=== PATIENT | female | born 1970 | race Caucasian/White ===

== ENCOUNTER 2023-01-17 10:12 | Outpatient (OUT) | payer BC, SELFPAY ==
--- NOTE | 2023-01-17 10:25 | XR_ITS ---
The [address] [address] Patient Name: MARYANN CUETO MRN: [id number] date: 1970 Sex: F Assigned Patient Location: [facility] Current Patient Location: [facility] Accession/Order Number: [id number] Exam Date: 01/17/2023 10:25 Report Date: 01/19/2023 14:27 At the request of: SHAIKH CASEY Procedure: XR hip RT 2V w/ pelvis EXAM: XR hip RT 2V w/ pelvis HISTORY: Right Hip Pain M25.551 COMPARISON: None. TECHNIQUE: 3 view study FINDINGS: Overall bony architecture is normal. Hip joint spaces are satisfactorily maintained bilaterally. The symphysis pubis and sacroiliac joints are satisfactorily maintained. Soft tissues are unremarkable. XR/XR hip RT 2V w/ pelvis IMPRESSION: No evidence for acute fracture or dislocation. Electronically authenticated by: Michele NIETO Date: 01/19/2023 14:27
== END 2023-01-17 10:13 | disposition home or self-care (01) ==
LOC: RAD 10:16
PROVIDERS: PCP Internal Medicine; Visit Provider Internal Medicine
DX: M25.551 Pain in right hip (principal)
CPT/HCPCS: 73502

== ENCOUNTER 2023-05-09 09:45 | Outpatient (REF) | payer BC, SELFPAY ==
[2023-05-09 10:26] LABS: Influenza Virus A Antigen Negative; Influenza Virus B Antigen Negative; Internal Control Within Normal Limits; SARS-CoV-2 Ag NEGATIVE (NEGATIVE)
[2023-05-09 14:50] LABS: SARS-CoV-2 NAA NOT DETECTED (NOT DETECTE)
== END 2023-05-09 09:46 | disposition home or self-care (01) ==
LOC: LAB 09:45
PROVIDERS: PCP Internal Medicine; Visit Provider Internal Medicine
DX: Z11.8 Encounter for screening for other infectious and parasitic diseases (principal); Z20.822 Contact with and (suspected) exposure to COVID-19
CPT/HCPCS: 87635; 87804; 87811

== ENCOUNTER 2023-12-08 07:42 | Outpatient (OUT) | payer OTHER, BC, SELFPAY ==
--- OUTSIDE RECORDS SUMMARY | 2023-12-08 07:47 | XMS_ITS | CCD ---
Author Organization [facility] Care Team Providers Care [place] [employer] Name Role Phone SHAIKH Yoandy GONZALEZ Attending Unavailable SHAIKH Yoandy GONZALEZ Admitting Unavailable SHAIKH GONZALEZ Attending Shaikh Mccann MD Primary Care Provider Maryuri VINCENT Attending Unavailable Maryuri VINCENT Attending Unavailable Maryuri VINCENT Attending Unavailable Harsh Salvador Attending Unavailable Allergies Allergy Classification Reported Allergen(s) Allergy Type Date of Onset Reaction(s) Facility (1 source) Sulfamethoxazole / Trimethoprim Drug Allergy 07-12-19 [facility] (1 source) Amoxicillin-Pot Clavulanate Propensity to adverse reactions 07-12-19 [facility] (1 source) No Known Medication Allergies; Translations: [No Known Medication Allergies] Propensity to adverse reactions (disorder) [facility] Repository Medications Current Medications Medication Drug Class(es) Dates Sig (Normalized) Sig (Original) atorvastatin 20 mg oral tablet (1 source) HMG-CoA Reductase Inhibitor Start: 06-24-2023 End: 12-21-2023 take 1 tablet by mouth in the morning atorvastatin (Lipitor) 20 MG tablet Indications: Hyperlipidemia, unspecified hyperlipidemia type (CMS/HCC) Take 1 tablet (20 mg) by mouth in the morning. 90 tablet 1 06/24/2023 12/21/2023 Active carvedilol 25 mg oral tablet (1 source) alpha-Adrenergic Angelica, beta-Adrenergic Angelica take 1 tablet by mouth in the morning carvedilol (Coreg) 25 MG tablet Take 25 mg by mouth in the morning and 25 mg in the evening. Take with meals. 0 Active cetirizine hydrochloride 10 mg oral tablet (1 source) Histamine-1 Receptor Antagonist take 1 tablet by mouth in the morning cetirizine (ZyrTEC) 10 MG tablet Take 10 mg by mouth in the morning. 0 Active metFORMIN hydrochloride 500 mg oral tablet (1 source) Biguanide take 1 tablet by mouth every twelve hours metFORMIN (Glucophage) 500 MG tablet Take 500 mg by mouth every 12 (twelve) hours 0 Active montelukast 10 mg oral tablet (1 source) Leukotriene Receptor Antagonist take 1 tablet by mouth once daily montelukast (Singulair) 10 MG tablet Take 10 mg by mouth 1 (one) time each day 0 Active omeprazole 20 mg delayed release oral capsule (1 source) Proton Pump Inhibitor Start: 07-10-2023 End: 10-08-2023 take 1 capsule by mouth before mealtime omeprazole (PriLOSEC) [address] capsule Indications: Gastroesophageal reflux disease without esophagitis Take 1 capsule (20 mg) by mouth in the morning. Take before meals. Do not crush or chew.. 90 capsule 0 07/10/2023 10/08/2023 Active semaglutide 14 mg oral tablet (2 sources) Start: 04-10-2023 End: 02-10-2024 take 1 tablet by mouth in the morning semaglutide (Rybelsus) 14 MG tablet Indications: Type 2 diabetes mellitus without complication, without long-term current use of insulin ([facility]) Take 1 tablet (14 mg) by mouth in the morning. 90 tablet 1 08/14/2023 02/10/2024 Active Problems Problem Classification Problem Date Documented Date Episodic/Chronic Diabetes mellitus without complication (2 sources) Type 2 diabetes mellitus without complication; Translations: [Type 2 diabetes mellitus without complications] Onset: 06-24-2023 08-14-2023 Chronic Disorders of lipid metabolism (1 source) Hyperlipidemia; Translations: [Other hyperlipidemia] Onset: 07-20-2023 07-20-2023 Chronic Esophageal disorders (1 source) Gastroesophageal reflux disease; Translations: [Gastro-esophageal reflux disease without esophagitis] Onset: 07-20-2023 07-20-2023 Chronic Essential hypertension (2 sources) Essential hypertension; Translations: [Essential (primary) hypertension] Onset: 06-24-2023 06-24-2023 Chronic Other screening for suspected conditions (not mental disorders or infectious disease) (2 sources) Patient encounter status; Translations: [Encounter for screening mammogram for malignant neoplasm of breast] Onset: 07-20-2023 07-20-2023 Episodic Results Test Name Value Interpretation Reference Range Facility Quantiferon-TB Plus (Client Incubated)on 09-02-2023 Gamma interferon background IA Qn (Bld) 0.04 International_Unit/m L Invalid Interpretation Code [facility] Comment on above: Performed By: #### 1 [id number] #### [facility] [address] [place] [address] M. tuberculosis stim IFN-g by CD4+ CD8+ T-cells corrected for background Qn (Bld) 0.27 International_Unit/m L Invalid Interpretation Code [facility] Comment on above: Performed By: #### 1 [id number] #### [facility] [address] [place] [address] M. tuberculosis stim IFN-g by CD4+ T-cells corrected for background Qn (Bld) 0.26 International_Unit/m L Invalid Interpretation Code [facility] Comment on above: Performed By: #### 1 [id number] #### [facility] [address] [place] [address] M. tuberculosis stim IFN-g Ql (Bld) [Interp] Negative Invalid Interpretation Code Negative [facility] Comment on above: Result Comment: No r esponse to M tuberculosis antigens detected. Infection with M tuberculosis is unlikely, but high risk individuals should be considered for additional testing (ATS/IDSA/CDC Clinical Practice Guidelines, 2017). The reference range is an Antigen minus Nil result of <0.35 IU/mL. The specimen received for QuantiFERON testing was incubated by the ordering institution. Specific procedures outlined in our Directory of Services and in the package insert for the QuantiFERON Gold (In Tube) test must be followed to enable for proper stimulation of cells for the production of interferon gamma. Chemiluminescence immunoassay methodology Performed at: [facility] [id number] PhD Roz Malin Performed By: #### 1 [id number] #### [facility] [address] [place] [address] Mitogen stimulated gamma interferon corrected for background Qn (Bld) >10.00 Invalid Interpretation Code [facility] Comment on above: Performed By: #### 1 [id number] #### [facility] [address] [place] [address] Service comment (Unsp spec) [Interp] Comment Invalid Interpretation Code [facility] Comment on above: Result Comment: Daniel tiFERON-TB Gold Plus is a qualitative indirect test for M tuberculosis infection (including disease) and is intended for use in conjunction with risk assessment, radiography, and other medical and diagnostic evaluations. The QuantiFERON-TB Gold Plus result is determined by subtracting the Nil value from either TB antigen (Ag) value. The Mitogen tube serves as a control for the test. Performed By: #### 1 [id number] #### [facility] [address] [place] [address] Quantiferon-TB Plus (Client Incubated)on 08-29-2023 Gamma interferon background IA Qn (Bld) 0.09 International_Unit/m L Invalid Interpretation Code [facility] Comment on above: Performed By: #### 1 [id number] #### [facility] [address] [place] [address] M. tuberculosis stim IFN-g by CD4+ CD8+ T-cells corrected for background Qn (Bld) 0.47 International_Unit/m L Invalid Interpretation Code [facility] Comment on above: Performed By: #### 1 [id number] #### [facility] [address] [place] [address] M. tuberculosis stim IFN-g by CD4+ T-cells corrected for background Qn (Bld) 1.26 International_Unit/m L Invalid Interpretation Code [facility] Comment on above: Performed By: #### 1 [id number] #### [facility] [address] [place] [address] M. tuberculosis stim IFN-g Ql (Bld) [Interp] Positive Abnormal Negative [facility] Comment on above: Result Comment: A re sponse to M tuberculosis antigens has been detected. If patient is at low risk for Tuberculosis, the result should be interpreted with caution and repeat testing on a new specimen is recommended (ATS/IDSA/CDC Clinical Practice Guidelines, 2017). False positives can also occur due to infection by M kansasii, M szulgai, or M marinum. The specimen received for QuantiFERON testing was incubated by the ordering institution. Specific procedures outlined in our Directory of Services and in the package insert for the QuantiFERON Gold (In Tube) test must be followed to enable for proper stimulation of cells for the production of interferon gamma. Chemiluminescence immunoassay methodology Performed at: [facility] [id number] PhD Roz Malin Performed By: #### 1 [id number] #### [facility] [address] [place] [address] Mitogen stimulated gamma interferon corrected for background Qn (Bld) >10.00 Invalid Interpretation Code [facility] Comment on above: Performed By: #### 1 [id number], [id number] #### [facility] [address] [place] [address] Service comment (Unsp spec) [Interp] Comment Invalid Interpretation Code [facility] Comment on above: Result Comment: Daniel tiFERON-TB Gold Plus is a qualitative indirect test for M tuberculosis infection (including disease) and is intended for use in conjunction with risk assessment, radiography, and other medical and diagnostic evaluations. The QuantiFERON-TB Gold Plus result is determined by subtracting the Nil value from either TB antigen (Ag) value. The Mitogen tube serves as a control for the test. Performed By: #### 1 [id number], [id number] #### [facility] [address] [place] [address] Hep Bs Abon 08-26-2023 HBV surface Ab Ql (S) Reactive Invalid Interpretation Code [facility] Comment on above: Result Comment: Non Reactive: Inconsistent with immunity, less than 10 mIU/mL Reactive: Consistent with immunity, greater than 9.9 mIU/mL Performed at: [facility] [id number] [place], [place] [id number] PhD Roz Malin Performed By: #### 1 [id number] #### [facility] [address] [place] [address] Measles/Mumps/Rubella Immuni tyon 08-26-2023 MeV IgG IA Qn (S) 33.2 A unit/mL Invalid Interpretation Code Immune >16.4 [facility] Comment on above: Result Comment: Nega tive <13.5 Equivocal 13.5 - 16.4 Positive >16.4 Presence of antibodies to Rubeola is presumptive evidence of immunity except when acute infection is suspected. Performed By: #### 1 [id number], [id number] #### [facility] [address] [place] [address] MuV IgG IA Qn (S) <9.0 Low Immune >10.9 [facility] Comment on above: Result Comment: Nega tive <9.0 Equivocal 9.0 - 10.9 Positive >10.9 A positive result generally indicates past exposure to Mumps virus or previous vaccination. Performed at: [facility] [id number] [place], [place] [id number] PhD Roz Malin Performed By: #### 1 [id number], [id number], [id number] #### [facility] [address] [place] [address] Rubella virus IgG Qn (S) 5.63 [IU]/mL Invalid Interpretation Code Immune >0.99 [facility] Comment on above: Result Comment: Non- immune <0.90 Equivocal 0.90 - 0.99 Immune >0.99 Performed By: #### 1 [id number], [id number] #### [facility] [address] [place] [address] Varic IgGon 08-26-2023 VZV IgG IA Qn (S) 1462 Invalid Interpretation Code Immune >165 [facility] Comment on above: Result Comment: Nega tive <135 Equivocal 135 - 165 Positive >165 A positive result generally indicates exposure to the pathogen or administration of specific immunoglobulins, but it is not indication of active infection or stage of disease. Performed at: [facility] [address] [id number] PhD Roz Malin Performed By: #### 1 [id number], [id number], [id number], [id number] #### [facility] [address] [place] [address] Outside Recordson 03-18-2022 Outside Records [id number] 7#1.00[facility] Outside Recordson 03-16-2022 Outside Records [id number] #1.00[facility] Miscellaneous Testing LCon 0 02-17-2022 Misc. Test Result LC COMMENT Invalid Interpretation Code [facility] Comment on above: Order Comment: test code 360589 lav room temp andsst refrigerate Result Comment: Test Ordered: [id number] A1A, Quant+Genotype(Rfx Pheno) Lykzp-9-Mnexmrycjqp, Serum 134 mg/dL BN Reference Range: 101-187 AAT, DNA Analysis Comment TG Result: c.1096 G>A (p.Pis405Fpk), Z allele - Not detected c.863 A>T (p.Ahh909Kkl), S allele - Not detected Not associated with increased risk of developing clinically relevant symptoms of alpha-1 antitrypsin deficiency. See Additional Clinical Information and Comments. Additional Information: Comment TG Additional Clinical Information: Alpha-1 antitrypsin deficiency is an autosomal recessive metabolic disorder with variable severity and age at onset. Signs and symptoms may include increased risk for chronic obstructive lung disease that typically manifests after age 30, liver disease, and liver cancer. Liver disease can be present in infancy as cholestasis (jaundice) or in adulthood as cirrhosis and fibrosis. Lung and liver disease may be accelerated by environmental exposures such as smoking and excessive alcohol use. Established treatments for COPD and emphysema are used to treat lung disease; lung and/or liver transplantation may be an option for those with with severe disease. Intravenous augmentation therapy may be available for patients who meet criteria. Comments: The ZZ and SZ genotypes account for more than 95% of individuals with severe alpha-1 antitrypsin deficiency. To rule out other variants, further testing of symptomatic individuals heterozygous for one variant (S or Z) or with negative results may include phenotyping (PI typing), AAT level testing, and/or expanded genotyping. Genetic counseling is recommended to discuss the potential clinical implications of positive results, as well as recommendations for testing family members. Genetic Coordinators are available for health care providers to discuss results at [phone]). Test Details: Two variants analyzed: c.1096 G>A (p.Jzp639Qbe), commonly referred to as the Z allele or PI*Z c.863 A>T (p.Ryr528Iaw), commonly referred to as the S allele or PI*S Methods/Limitations: DNA analysis of the S and Z alleles in the SERPINA1 gene (NM_[id number]) was performed by multiplex allele-specific PCR amplification followed by gel electrophoresis. Results must be combined with clinical information for the most accurate interpretation. Molecular-based testing is highly accurate, but as in any laboratory test, rare diagnostic errors may occur. False positive or false negative results may occur for reasons that include genetic variants, blood transfusions, bone marrow transplantation, somatic or tissue-specific mosaicism, mislabeled samples, or erroneous representation of family relationships. This test was developed and its performance characteristics determined by [employer]. It has not been cleared or approved by the Food and Drug Administration. References: Mitch RA, Michelle G, Melissa ML, Pillai M, Cross CE, K, Paulie DK, Emory SL, Azar JM, Juana ASIF, Tab C, Pooja J. The Diagnosis and Management of Alpha- 1 Antitrypsin Deficiency in the Adult. Chronic Obstr Pulm Dis. 2016 Dec 13;3(3):668-682. doi: 10.96872/jcopdf.3..0182. PMID: 87937907; PMCID: EGU4681827. [place] ASIF, Tom Velasquez, Liz JONES. Alpha-1 Antitrypsin Deficiency. 2005May 05 [Updated 2019November 27]. In: Rivera MP, Delemr HH, Ruthy RA, et al., editors. Stacey(R) [Internet]. [place] ([place]): [facility]; 7980-0906. Available from: https://www.ncbi.nlm.nih.gov/books/HWK5742/ Electronically Signed by: Leroy Garner, PhD Director, Molecular Genetics A1A Rfx to Phenotype Note: BN Not Indicated Performed At: CB [facility] [place] [address] [place], [place] [id number] Roz Malin PhD Ph:[phone] Performed At: BN [facility] [place] [address] [place], [place] [id number] Guanako Arias MD Ph:[phone] Performed At: TG [facility] [address] [place], [place] [id number] Kailee Felipe [facility] Ph:[phone] Performed By: #### 1 [id number] ####[facility] (DEFAULT)[address] [place] [address] Coding Summaryon 02-14-2022 Coding Summary [employer]Base 64 UxxwflbhQSq1hOi+PGhl YWQ+WJ9GUIXfH61upSZx xW5LG8vOIP7OHHZZXNPU IC6NAB6anGS1LPlxR2Iz biAv TkblyGLiET30DYz8RWG5 kRbxJQobtB3akZSnL8u7 UlJlXM56mY36YOyxGWWt AaT7VnFjskdplLWd R2gcGdNpxEYrPfk+PHRh YmxlIHdpZHRoPScxMDAl NwMdiMtiVZ4zKl1fWIZk LWNvbGxhcHNlOiBj a5dsESRfTFchLR5gsRxf T5AmgSD5BPDbj2d4Wp12 dHI+QJDgLKX0fDhyDMlf k754BlAkt0jlYOQ2 nZMgLDzcXHJ3N55uy8E6 TNKsGPTsJEY8oBE7fX5q eOjkbvmzD4ZqsCVaLqA5 HUG7gEBhsG5hoUbh ycsjhN6gMpu+X94QDP2C ZMVNDK9UPla6K6TeTihs dHI+WS86XNVmNI07mQTv iUYxk9pneZl7BjAy TXRrQVP7cPxoNJoon7Bz OBGgI23knKPnz8Q0RAIz jDptuBHvBqLyeCA0zJ4d PObidgrdp2fdjigy Ludie0gbdl14qA31D33g PExmPRPsDPG4MNYnSHTi jFyevj0blC3vRl9+IDxj s2lrf8ritZt5LyPs NFInbbSybCabFVE5i1Fb Ri76N0RbxLntf3FmQsn9 zk73lMArt2Q2xIR1NHil BOJdmW8aQLmyPgA9 CZOmUnKdyJ59uHJqPJdz Ob9eoZmydGqqXS3tFNLb okrlNWSzfD7oDVFckOEf wRleNL6vARYcmqvh t495YdDhITF1ZBWbwXRx J6ZcmE1sJdFrULOwIOEc W3BdkJOyOOxcQ423RVlb UzN7RIMjdxUpJ3Xe TPQnuMosEuJ5v8W0Gd5C w8MnpnrePIM6CFneZRN9 FaB1PyUeWvS8R6NyKiq2 YQJaiHnoUI7sD1Wb ELWkjavgaexzoXH3HJSh NLVssW97dAUuLJclBk0w w1M3z119QKAkCBBvkD78 Db1bwIbuQSSgtTSL iQ5htqdvw4ukkxaqGzYl KLVdKUh6IUq6MROuaDtw RvWzOCS4MpQ9BWK7cVYm sW2svUzhtmphgO9l Oyc+X68zuD4zKXK6XPJ9 dogrMONfsjEeUV30QU87 G3CqLfonsEBbpPE+PGRp gtPhtIetND9eLsEl h6uws7UjOIjoH2HeGPXp RSjrIhr5YJRxNFU7kCW1 aK8sIMDvGVizk4K1qMM5 D8BswlKamb1ls1zr TSDlKVmnG03urAOcw7G8 CBUfcYE7VXQboJyfDaHh eU58Fjq+TFGqzLsxb4Ls Cmwto6znw6whbAj0 IjMwJSIgdmFsaWduPSJ0 c9YhDo43H56eQAyfYRDl KNJrKZVpCAMajYqtbg0h rM3oGq2+PGNvbCB3 rZA9mD4lQOOgPqY9UXvs D643LpWziIAwJoxzb4yi k3jupLw4AkCtEZKwiwKe mBcuELG2i0TuWu78 G27jYMxbDWJoLYGyTHUe SCKuhDeqqd5caA8bQc3+ IE7yt6jfrs91bP61zWL+ OKKzLXP1zAkpMKwj MNJtvN3cLNezZvO6KDUr YhKtaZ45mGFwYXeaRp5s fRntoMazKG6cODMcxqpn p587BsDaw6anKDBq nXAvGRepZAV0K54wu2C7 DTQlRAXfAQR1hOF2bT4b bGlnbjogbGVmdDsgdmVy sJpkVYsgYHwwZ641 IHRvcDsnPlBhdGllbnQg DwMvVEm9O4ZbBzh1SHVe jFzrHO2mcEZwXPcxLb1h yMgryLwzCM7qUSLb bvstk779LrQjw3qdDCPs eYJmVLqgSCE0X68zy0G7 PKUhFXKvKMB8qIS0oQ8m bGlnbjogbGVmdDsg wfBpvHmnAEnwHKgrR042 IHRvcDsnPkJpcnRoIERh eVO1KW82FS51lCSxm0Y4 oBY9G0GaRBDckefj cdcfgME2UFOnGUAezU55 Ep6sfBmzCb3uFHDoCVF2 IVZgoIZbP9KwmT9zBkVp VSVgYFRcD0YziSMi CEdvQ254XForHpP9SWZt gnPbC1GsRJJeyUkdGlH5 g8O7Lt7RD3I9CM50VD22 rJAwl4I3qAJ2K2Cr KAFsfrgfwflslUC3MUMh PEHkpL53Se6vaHtkLy8k LUDqANH2YNBbgDGvX6Mc wB1sJcCqRLSiRBDh V6EwnUKfOJvtL998KMsl ThE6TVByduYaI9GyZBZz xAkzBoR9l2I7Um9IELz6 FM01CO57fIAce2T4 rDX7O1GgYZTageohiqpz jOO0VMGxLMFaaK92Yc3v kWokFb1dVBBjNRW6OPRi aPYxC0YprR6eUyYp YARnXAGkG9DfsRPrNXnt U589EEkkHeP0WHEctuAd G1HnYJSgmZpyLzQ2y3O4 Bo7QRTKqQU72JHW6 yLI4OO61CD69N1BoAwyv dGFibGU+PHRhYmxlIHdp ZHRoPScxMDAlJyBzdHls CY1nQq0uHQVcCWOf mJfemCSoLjWcj2iyUCRy QCmtJY9hoQtnM1CriET4 AVTvg8d2Bl26S86fC1Ug dXA+LUPlzNK4tFL4 wD6gSwLvFbB6BCaoZ902 BtWvwIDbAorpc2mvx7aw cQh0EaJ4CBHcskAsbCgz KIJ0h3PyEx20E25r IHdpZHRoPSIxNSUiIHZh yCexex2vuQ1cRz3+PGNv xBX9gSS5fW3eGjCcUxF4 NWbkI542LwBvvMQx Fivko7lbf0motNu3CfAw QQMvqyPpmBrfCMN3k6Dy Nn11V6GvwDfpd6FxQny1 iq98gKZol6C2fPD4 L3WqHUNrstvpuNWmtKog YL1kCFWrcxldUMKqvH3d NVQbG6q7SmFwZbV8NOfm P9NxrgR8DGNigIYr HOsrJVX0O32us9H2YSKz HLFuRZI0zOF8mO5znNgs bjogbGVmdDsgdmVydGlj LBipEBjvE326QNXl fLvhTGYlkN4iAJKibXHe bQkuNF6zANEodmccUoSS Z1SJNYLDYHOXMISsUKps dGQ+DENxLGM0rGxe DAfdVRIqiU6kTXRxP7n2 FhMdRpF1VXayL4MzTBIc jjuqFo78cT2gFbXjRrO6 ZRqlA4SnskO9ZYUx sFBcNCuhAFG3O14sf8Q6 QJUlXIHzZPT3rST5pB3p bGlnbjogbGVmdDsgdmVy fOdwMPddUDqgQ256 IGOqyRmaKgQyHzI0HwA2 Hnb0E9YbEcu2QDXnfGjp TC1giRElOYkfGp6arBqz vFkmHR5sVJAznfff ARObuM6hMMKynMJmhPud TA3fYBOaqbodl213BwKi TEM2VGShbCRwI0IliA9u CeLlSOVsFBOjI6Ak tJFrMNocX458EZyuXmL0 SVKsphFeD4RbFUXvrMof YhY1f2B7Tj53OvDEKNIh czwvdGQ+PHRkIHN0 jPmcIDmtXSQuwC6zJLHw D6x9IyLyHtZ0ZHncT5Zi WXJwtqkwYm15lN3fWcDp AyC7YIiwF1UjpvU3 BTWnoCEfYBymISO4K51t o0E7ZDGtVFAiIFK1fDO8 gL5wqNwadnxzvLUekZgb dmVydGljYWwtYWxp H788EHBhhCzjDcQNHCCZ RTwvdGQ+EDKwWVE8fYlr PDuiDMRhfU5dDVEpB0r2 OkUdFgZ9JQyrY2Gt XCAuonldJj13iS8oNtGt BzI3JMbtF7ImxgC6PAQs aMGnNXntPIP8J64zt2P4 YQUsGCEqMVT2hLZ2 sT2dbDwezzpmyXWscFqd grPngUuiAVtbWScoK338 SWPhfIxnVd8NPD35KC04 R4FfEbibsFMuaWF+ PHRhYmxlIHdpZHRoPScx AJCxDvMooNcyZE3xOd6d ZGVyLWNvbGxhcHNlOiBj w8zjTZMyBTacAH0i gVewZ7RmiYC0TPEbm3v0 Dn10W05vJ0QrpGB+PGNv gYH7xDP9kZ9yOzEkNlU8 TQtuT148TfMaoYYy Imacc1sdo4skwLs8VnQf NBAakhUvyWvoBBM0v0Gk Qf59B57nHOvtXBWbRITw RJRnAPWyyPkwom4f xO0pYm1+EJOktSQ2eWI7 hB4jQlJlWlV2QIuuO709 NsHtiHPvBwzoG97kA4Qu dXA+VMXzNar2LHUv vPpkOA7ulDKfBQvmOs3m ZRF2JqOeBzHpVVorS3Zp BXMlzkckwzpreRW5EEFu WAAtpC75Nl6mqAim Rr2eCDRbVEH8NLFkwMPk W5RvhG3pBtJdXBLxVTHw B4IdiZHaRCvoP456URmq SxL0MMBuloHgF1Lq VYSadViqAsI3b0U2Of6U lBoltPGpZC6rAoNmVVq6 F2NvBuw0TDMkcOicYM9m eSKmUWbtJc7ytSsj kRnfFP1jQAZirdmno824 NwYyb7oxVHIvoPMiPKhq JKT9Z13jf5I5ZNEnWYMc FAH4yKW5aV5tpIdg bjogbGVmdDsgdmVydGlj UMptQSgcC598QRFuhHcw JrDRGzj1J4WiDpn7KPFp uYygAA3uiXKqIDgf In2fiIxfuIbcTF7wOJNg mbqud284VvHgk8ksNBNr lGMsIZerPSZ5X32ym0P5 FAWjTIVmUMO8aTB7 xH7zyUmqlwswnLHbeEok otLamJxwWMbkTXzoS560 FJModJncVs2HRqe7R8Px Yfq1XDPpiFdrMR1o oCGyOXmfGh0csTiuiPgr RA7eTVPwwbsjz085BrMx l2pqSJIccCUbPRfmPXK0 O12mx4X8RPYpLLGg QUY2dPX7zI3bhBpxmzhf bGVmdDsgdmVydGljYWwt TUqkY695YSTeiSroVnNb eWVyOjwvdGQ+PC90 no53W3KqJqbnWdv8TBLs EJF5jZW6sI6tMFRvDFiy n8J0jZH0P7FdfyXyrt2v h4srRSOkKEvvE66i bGF (more content not included)... Normal [facility] Allergen Profile With Total IgE, Mirtha 02-13-2022 Class Description LC Comment Invalid Interpretation Code [facility] Comment on above: Result Comment: Levels of Specific IgE Class Description of Class ----- < 0.10 0 Negative 0.10 - 0.31 0/I Equivocal/Low 0.32 - 0.55 I Low 0.56 - 1.40 II Moderate 1.41 - 3.90 III High 3.91 - 19.00 IV Very High 19.01 - 100.00 V Very High >100.00 Very High Performed By: #### 2 [id number] ####[facility] (DEFAULT)[address] [place] [address] M395-MuA D pteronyssinus LC 0.40 kunits/L Abnormal [facility] I [facility] Comment on above: Performed By: #### 4 [id number] ####[facility] (DEFAULT)[address] [place] [address] H721-AhL D farinae Mite LC 0.45 kunits/L Abnormal Class I [facility] Comment on above: Performed By: #### 4 [id number] ####[facility] (DEFAULT)[address] [place] [address] C492-IsA Cat Hair/Dander,Irwin LC <0.10 Invalid Interpretation Code Class 0 [facility] Comment on above: Performed By: #### 3 [id number] ####[facility] (DEFAULT)[address] [place] [address] D285-PbX Dog Epithelia LC <0.10 Invalid Interpretation Code Class 0 [facility] Comment on above: Performed By: #### 4 [id number] ####[facility] (DEFAULT)[address] [place] [address] Z554-WfM Mouse Urine LC <0.10 Invalid Interpretation Code [facility] 0 [facility] Comment on above: Result Comment: Perf ormed At: [facility] [id number] Guanako Arias MD Ph:[phone] Performed By: #### 8 [id number] ####[facility] (DEFAULT)[address] [place] [address] E495-UuR Bermuda Grass LC <0.10 Invalid Interpretation Code Class 0 [facility] Comment on above: Performed By: #### 9 [id number] ####[facility] (DEFAULT)[address] [place] [address] L223-WbA Garry LC <0.10 Invalid Interpretation Code Class 0 [facility] Comment on above: Performed By: #### 5 [id number] ####[facility] (DEFAULT)[address] [place] [id number] B481-MaO Cockroach, Mohawk LC 0.45 kunits/L Abnormal Class I [facility] Comment on above: Performed By: #### 3 [id number] ####[facility] (DEFAULT)[address] [place] [address] [id number] IgE Total LC 63 IU/mL Invalid Interpretation Code 6-495 [facility] Comment on above: Performed By: #### 2 [id number] ####[facility] (DEFAULT)[address] [place] [address] W177-RkR Penicillium chrysogenum LC <0.10 Invalid Interpretation Code Class 0 [facility] Comment on above: Performed By: #### 6 [id number] ####[facility] (DEFAULT)[address] [place] [address] P695-CxH Cladosporium herbaru LC <0.10 Invalid Interpretation Code Class 0 [facility] Comment on above: Performed By: #### 8 [id number] ####[facility] (DEFAULT)[address] [place] [address] M072-XwF Aspergillus fumigatu LC <0.10 Invalid Interpretation Code Class 0 [facility] Comment on above: Performed By: #### 7 [id number] ####[facility] (DEFAULT)[address] [place] [address] 17210 U500-SlW Alternaria Alternata LC <0.10 Invalid Interpretation Code Class 0 [facility] Comment on above: Performed By: #### 3 [id number] ####[facility] (DEFAULT)[address] [place] [address] 24130 N912-QfK Maple/Kemper LC <0.10 Invalid Interpretation Code Class 0 [facility] Comment on above: Performed By: #### 9 [id number] ####[facility] (DEFAULT)[address] [place] [address] 92253 E184-HnS Common Silver Birch LC <0.10 Invalid Interpretation Code Class 0 [facility] Comment on above: Performed By: #### 1 [id number] ####[facility] (DEFAULT)[address] [place] [address] H761-BrF [place], Mountain LC <0.10 Invalid Interpretation Code Class 0 [facility] Comment on above: Performed By: #### 7 [id number] ####[facility] (DEFAULT)[address] [place] [address] 36575 Y003-ItK Prue, White LC <0.10 Invalid Interpretation Code Class 0 [facility] Comment on above: Performed By: #### 4 [id number] ####[facility] (DEFAULT)[address] [place] [address] C511-ZzH Elm, Vietnamese (White) LC <0.10 Invalid Interpretation Code Class 0 [facility] Comment on above: Performed By: #### 4 [id number] ####[facility] (DEFAULT)[address] [place] [address] F693-ItS [place] LC <0.10 Invalid Interpretation Code Class 0 [facility] Comment on above: Performed By: #### 4 [id number] ####[facility] (DEFAULT)[address] [place] [address] I678-NoF Maple [place] LC <0.10 Invalid Interpretation Code Class 0 [facility] Comment on above: Performed By: #### 3 [id number] ####[facility] (DEFAULT)[address] [place] [address] K063-VwP Union LC <0.10 Invalid Interpretation Code Class 0 [facility] Comment on above: Performed By: #### 5 [id number] ####[facility] (DEFAULT)[address] [place] [address] B705-JoH Aaron, White LC <0.10 Invalid Interpretation Code Class 0 [facility] Comment on above: Performed By: #### 9 [id number] ####[facility] (DEFAULT)[address] [place] [address] 34317 Q018-VgY Pecan, [place] LC <0.10 Invalid Interpretation Code Class 0 [facility] Comment on above: Performed By: #### 8 [id number] ####[facility] (DEFAULT)[address] [place] [address] W599-BiX White Bly LC <0.10 Invalid Interpretation Code Class 0 [facility] Comment on above: Performed By: #### 5 [id number] ####[facility] (DEFAULT)[address] [place] [address] 85904 E445-DrI Ragweed, Short/Commo LC <0.10 Invalid Interpretation Code Class 0 [facility] Comment on above: Performed By: #### 2 [id number] ####[facility] (DEFAULT)[address] [place], [place] [id number] T613-WgZ Thistle, Moroccan LC <0.10 Invalid Interpretation Code Class 0 [facility] Comment on above: Performed By: #### 3 [id number] ####[facility] (DEFAULT)[address] [place] [address] 43979 O781-JeO Sheep [place](Dock) LC <0.10 Invalid Interpretation Code Class 0 [facility] Comment on above: Performed By: #### 0 [id number] ####[facility] (DEFAULT)[address] [place] [address] 25897 Coding Summaryon 02-09-2022 Coding Summary HTMLBase 64 MrehtwcyGBv2dXe+PGhl YWQ+HU9FGFHkN79jfFIi lJ3FN1uWHE0BEHKDNOWV IC6SHF1jyTS8IYtyN4La biAv XhqdpNIuPH98WMn4JSE5 kInvQAfkeH4hhZEdR2c2 HbOmTA19fD65AXacKMKg HvY6XrXgptibvOLw K0beEuBmnFNrCrw+PHRh YmxlIHdpZHRoPScxMDAl KjPifVcfWS2bXh2sUBZh LWNvbGxhcHNlOiBj k5wfKDTrCGedDM4cdWas F5FxxXB5YVOxg7v7Ea99 dHI+LIDqXWR2pEzpHCfi m636LpBnr0rrKUH3 aJUdFLxsZEK3G60jd3C5 UYQiQNWsIDY8dOF0jU1d xRpqponsO2YbmJUbHlR6 ROE6wPPpoH9jaHnl qguvwS2pXbf+L48KRZ9O PMWKKM1QYim1K4XgWpxa dHI+IS93YUYcGZ11kOOm oERkh3iupVv6XmWh HYBkDBH5cJefMXcoc7Gb FHKuO15keIQjm5N2IQId aStvfBLpGrVesCW3nU8t BNcbeuiif3codvzz Ufnmb9shlg26fD91I55f TFarGWGpOEH1IRSxBVJr oKiaha0jcU2oGl4+IDxj z6waz6iqcVt5HcYc VHWoxuDcnMcxPAY9r1Nr Sj77A0JxsUvdk7NhZdo6 jy75bRUjn3H0uYS6MPpb MQWfpO5gYRykDiC1 MXIvRuIeoT33sHLuQLtx Vy2qvPgxpJlkFM4eTSQy vfshOONsrO6nDRTvhZFd sSemPG1mMUNvldap x523FeKlGPM1ZWXsvPGg X7JfhS6bOiFrQXYkKNWb R5UxsDSjKDiuC751CXov PjX9EJCfyaUbQ1Hg XFTuuLgvBqN2o7G3Wk9U w3SlkkoxROX9GSseFKR5 GdEcErJoNnI7B0HxJep2 TCDkcCrzVE5dP0Oi PKJzlinqrspstUS2ZHUp IHPibZ74yQVdZVorFr3c a2K3j585NHTvAQXtiM58 Qw7hnThcZJTyyLME xZ0ixwcvy7emrhxnGeAo NEPuKYq9OQx8SOEajAjl RoGmFED9IoZ7KCQ2sXGs mG6nbVqytopwpI2s Oyc+P31vtL0wRWS8GIZ5 pzffJBWtxcRuWC95WA00 E5MrDwwtmHDqgIC+PGRp wuUmcEhwAN3vCpPy m7aqy0FnQQpdC0DfOQLh ECtbNop2VWTuKQV4fGY5 uY5aPXViMEzgu2Z1aGX0 C8SpazVmjd9ph0pg QWZaQZkfJ11uaPMtz4R2 AFBdqBE6SNUvwIsbSsWo yA72Hma+THFuqOkgr7Kv Ianoq6dms9eyxCi1 IjMwJSIgdmFsaWduPSJ0 y9HhSp60V40oZDgdOZZb IKIiNVCpINJnuGpmli9h zX8uCg1+PGNvbCB3 zCZ6sH7lCDDuCdE1KJbl I686OqQztXErLjaga6uy l3zstNw0QqEtQVNjjbRt nKcpHMA6n0JbCt20 X48qFPmxWPYvMEGzQYBi SUIogOvwmb3ngO0yUk5+ MD8ir2pjrw88nG77kSZ+ ERFtMSO1sZfyGJhs BIYahS4uTBqxOtH4YRGn MuZypW36iBXbQCamWr6g dTjdxGocJW8cOAYnznom n328NrOme7ckBPAx sKZyFJosHPL0N02fy2Y4 PQKeJDJzSQR5eRE8gG6o bGlnbjogbGVmdDsgdmVy uQmjZYgeFZjcT485 IHRvcDsnPlBhdGllbnQg NgLrJMz4J7HmRkf6RVHm cAmnHW2pjVTtQMfiOo4o hNhzwZesHK4oPRXd pjhqx667ErBcf8vwSPIg oVDrXXdtJPH6D66ay8D1 HXInKLZrJOX7uYN5iG7x bGlnbjogbGVmdDsg xySgzKssMIozYZyiI462 IHRvcDsnPkJpcnRoIERh bXM1TG26TV77dWPng3D4 aDL2J0AeYSDchlho gedrlGX4EIAbDQUtsD78 Ll8ryOlqPm3sRSHhRUT6 GBOtnTVwB2XagQ8tOpGs GNDoXWJtD4HazOBj EPxrY536GKlgXvK5NMNi kgNlB7MsMLDzaFmsXxD6 w4Z7Gn2RH4P2LU03OW70 tGHfz6M2qHQ2W0Kb TGHlgjmtcgjslTU4ICIw OZWubU95Ya8dvMveHt9c YWKaBIK1SOMabRNhQ7Xw iV4zCpNqOAUkBEJz K0MkeXLsSFsuE000FFge MbH3RFLiseLoD6EeIPEe oHysKjE2o5U2Mo0WIDj8 OV03ZN35oCIxn4V9 zNT3J3TeUVBtibqniqnk mUP0MCDfVYVltN20Zf8c cVwoUe2xJSXdQQT0HROy vQRqZ3RinK9dXcDa BUAqNFGfH4BjiHByHGem E556PQbkUyQ7BZWxzkPv G3WoXMZwoEpwBoS2d3I8 To8USEAtWN94BWY6 kXV9QI55OD56M1MjFvrb dGFibGU+PHRhYmxlIHdp ZHRoPScxMDAlJyBzdHls FJ2dLh7jZVPjTXBv eEbhnMKfHzTbw6hxYSUk BRveFU5cnLheH5LrpOA6 AZUld4f0Gq74M04oY7De dXA+ZTYqtBG5iBY3 cE5cPjLhRkG8CLfdC836 FiLucGBxZklre8agz2kz bXq9FmR4TDSdzgQxlBcr TYL4e4YgXt01I64p IHdpZHRoPSIxNSUiIHZh eQikes7qkB0oSp0+PGNv pGT5bOQ8uK8gReFaApU4 EDalA615EcOywQRj Imgoz0hcc4ahkEq1CiKt OHVpxdDevSvdKGB8k0Lc He22B0WptEemi6FeShc7 tu82mAZfm0E4qBW7 Y1QcXNLkbegzgIBlnUvz XP7yFUHixfliYWQbwV0s LNEbU6l7ArUzExA6USst Q9YmdvH9WXKpnWKn YSyuTVA3J45rs6Z7UHPe UGPbUEV8zTG7lB3ikFwq bjogbGVmdDsgdmVydGlj OQqwYVarC248LEQc gLswMUSnmO4kQYZgsEVk rRitIE5oRGVzhcfwDiSB W2AYLAXBQQUQWZCjIZvi dGQ+TENvCIN2sQgh NVemVMEkjM1aBOQtX6l1 KtKwInT1BMhkM7MjKHVf ffibJq73gK3sAfHiXhF7 LPpwB5VlxnR0AUFs aTJzJBoqMFF6S77qb2D0 AMLaNQKwLXC6jOB0fI6q bGlnbjogbGVmdDsgdmVy gLvxBUocGZhqZ628 HKHmkAjsNoGmAaI6YkS1 Mxr8F0HhDrf5YNUweLji MQ4frUQlFPjhOs0dpQhp dUhxYJ5iJIPdawjz YSZwtA5lKQIlbDUasOho KD9iPDDvwtdgh194BzUg LVM9SPWxyCLzF5SiqO2c KeBeYKVfSRWhB7Ux vCRaHImqB260UEurIxA2 SXXgflDbT0CaYVGjpErd DsI9b7D6Nm98WcRMKYAt czwvdGQ+PHRkIHN0 bNzdUHuySXUkxZ3lWKJk W0x8HuLcNbN0XQjfP9Th VVJcanupLe65mY1fTyAa VtL4XBlgX3FdxqA7 XQXiqVKhZXfaYOI4T72b b1J8BWWvCPNzGYT5jMG7 cY0xyZowudqdlDRbmQmg dmVydGljYWwtYWxp W858MMPhaUawPuTQXNKP RTwvdGQ+TGOmDAS1yHxm WTucKDMgcA6lSLByS6c5 MfXiGgW1QCzdR1Sh ZJAxsjqxLk75iK9oYjKl JwD7RTtuI9UeshR3BPOs wDOrDPrsEFL8Q65vr3P5 GWTyEHDgJOG2hUF2 kP8dgAbveaiqnCMhvIlz wyOnyVxnCVflDDtmO987 FMLnsDtcGh6NMX29LQ37 N3LoOimmgYHhfOZ+ PHRhYmxlIHdpZHRoPScx PQUsYdWmaQjlEZ7wRo5e ZGVyLWNvbGxhcHNlOiBj t1ciQVOmSKjbLY7a kMubF5PciRI2ZCFkv2a9 Ji69S33yN7NllDP+PGNv rVM7iAQ8yF4dAaNyYqP1 KZpnX945QrZlrSWl Btsoo3pfw9qxyUj0JiRs OEJydmXeePxbXXK8j0Yf Qy20S19iSWzyITSrZZLe RPLkFMBajCwluj7g kX9jAo2+VMWidSI3tQU6 lY6xQzAxLjY4EJegV507 ArEluKQfUjcmH23eF0Fk dXA+LNHeIej8PQJg rRobGY3tyDYnQBnhRm9n OLW2UzRuGuTkPGnwG0Ox LZUebfppzmutqNG9GSTi MWVorJ32Is8dyQqe Cb8pTUUjMSO5YARrpUJp M1MbuZ1lCjMiOGXkBBXs X2PvuCMgUWbiI094FYmj OoP1OHOkasGqT1Ir AEBinWiqMoP5n9V6Dn9U bEvnpYGvFP5jFiFoZVm8 L3IjNyq7JGQrtLjlYJ2d uQBnIWkfAa9viIzo lZasAG3wPEXnqrxzj462 AaNaq7kuVUYdmNCsABpq KWL9S11yl2A0CQRsSFNo MXD1qZC7xK2vdXjh bjogbGVmdDsgdmVydGlj CIztAJfaX290INHafKep SpAWCnh1S7TgNkg0RWZv xZvaNM0qqISmAYdf Bx3izHjasMjmTF1aVNFj joaao471LeIbp2myURWr uZQwUYjtDAP0P30ye5D1 ZCPdSADnKFN0iCG0 pS8vnBsurbqbvZPaoYpe spEqsKocQAnmJQnkO127 CBOvqKoqJi8CXqo1M2Nf Olx2OGXaeXsnLB0c kSMwCLtrMd2kgTybeKhf FX7vYJQyekxcs921XfTi c7bhRYCusWHsBEapONW8 Q80zy9O0IRTvALJl ZNC5iRT1cS5jpAqmqudz bGVmdDsgdmVydGljYWwt MHqjR009TQCjeBymTrBf eWVyOjwvdGQ+PC90 bd28Z2VqUavkIvm0UOJg ELS6cRP9nE5fPNSpBAbs v3C0xML7M4KqkbBqmg4s a6nuZENoWAocX81n bGF (more content not included)... Normal [facility] IGA Qn LCon 02-09-2022 Immunoglobulin A, Qn, Serum LC 332 mg/dL Invalid Interpretation Code 73-452 [facility] Comment on above: Result Comment: Perf ormed At: [facility] [address], [place] [id number] Roz Malin PhD Ph:[phone] Performed By: #### 3 [id number], [id number], [id number] ####[facility] (DEFAULT)[address] [place] [address] IGG Qn LCon 02-09-2022 Immunoglobulin G, Qn, Serum LC 1127 mg/dL Invalid Interpretation Code 183-1000 [facility] Comment on above: Result Comment: [facility]: [facility] [address], [place] [id number] Roz Malin PhD Ph:[phone] Performed By: #### 3 [id number], [id number], [id number] ####[facility] (DEFAULT)[address] [place] [address] IGM Qn LCon 02-09-2022 Immunoglobulin M, Qn, Serum LC 89 mg/dL Invalid Interpretation Code [facility] Comment on above: Result Comment: [facility] [address], [place] [id number] Roz Malin PhD Ph:[phone] Performed By: #### 3 [id number], [id number], [id number] ####[facility] (DEFAULT)[address] [place] [address] Provider Orderson 02-09-2022 Provider Orders [id number] #1.00OTGTIFF Normal [facility] Pulmonary Procedureon 2021 Pulmonary Procedure [id number] #1.00OTGTIFF I agree with the computerized interpretation. There is minimal obstructive lung disease with increased airway resistance. There is air trapping but no hyperinflation there is no diffusion impairment. While the study does not meet criteria for positive response to bronchodilator therapy, it is noted that the FEF 25-75% improved by 44%. Therefore trial of bronchodilator may be indicated. Please correlate clinically. [Electronically Signed on: 02/09/2022 08:24 EDT] Garry Workman DO [Verified on: 02/09/2022 08:24 EDT] Garry Workman DO [Transcribed on: 02/09/2022 06:38 EDT] BK Normal [facility] .Auto Diff 1on 02-08-2022 Auto Knox % 6 % Normal 1-12 [facility] Comment on above: Performed By: #### 7 [id number], [id number], [id number], [id number] #### [facility] (DEFAULT) [address] [place] [address] 35682 Baso Abs# 0.1 x10 Normal 0.0-0.2 [facility] Comment on above: Performed By: #### 7 360498, [id number], [id number], [id number] #### [facility] (DEFAULT) [address] [place] [address] 91860 Basophils/100 WBC (Bld) 1.1 % Normal 0.2-2.0 [facility] Comment on above: Performed By: #### 7 948835, [id number], [id number], [id number] #### [facility] (DEFAULT) [address] [place] [address] 77233 Eos Abs# 0.3 x10 Normal 0.0-0.4 [facility] Comment on above: Performed By: #### 7 044734, 12153762, [id number], [id number] #### [facility] (DEFAULT) [address] [place] [address] 84859 Eosinophils/100 WBC (Bld) 3.1 % Normal 0.9-4.0 [facility] Comment on above: Performed By: #### 7 461874, [id number], [id number], [id number] #### [facility] (DEFAULT) [address] [place] [address] 57999 Lymph Abs# 3.0 x10 High 1.3-2.9 [facility] Comment on above: Performed By: #### 7 645106, 26858234, [id number], [id number] #### [facility] (DEFAULT) [address] [place] [address] 98769 Lymphocytes/100 WBC (Bld) 36 % Normal 14-48 [facility] Comment on above: Performed By: #### 7 215180, 11130782, [id number], [id number] #### [facility] (DEFAULT) [address] [place] [address] Knox Abs# 0.5 x10 Normal 0.0-0.8 [facility] Comment on above: Performed By: #### 7 598260, 90509656, [id number], [id number] #### [facility] (DEFAULT) [address] [place] [address] Neut Abs# 4.5 x10 Normal 1.5-9.2 [facility] Comment on above: Performed By: #### 7 975447, 11579310, [id number], [id number] #### [facility] (DEFAULT) [address] [place] [address] Neutrophils/100 WBC (Bld) 54 % Normal 44-88 [facility] Comment on above: Performed By: #### 7 793530, 04985224, [id number], [id number] #### [facility] (DEFAULT) [address] [place] [address] CBC w/ Auto Diffon 2 Erythrocyte distribution width (RBC) [Ratio] 13.0 % Normal 11.5-15.0 [facility] Comment on above: Performed By: #### 7 861467, 64281482, [id number], [id number] #### [facility] (DEFAULT) [address] [place] [address] Hematocrit (Bld) [Volume fraction] 41.5 % High 33.7-40.4 [facility] Comment on above: Performed By: #### 7 175057, 02455334, [id number], [id number] #### [facility] (DEFAULT) [address] [place] [address] Hemoglobin (Bld) [Mass/Vol] 13.7 g/dL Normal 11.3-15.9 [facility] Comment on above: Performed By: #### 7 166062, 43411198, [id number], [id number] #### [facility] (DEFAULT) [address] [place] [address] 65286 Instr WBC 8.4 x10 Invalid Interpretation Code [facility] Comment on above: Performed By: #### 7 774935, 56259192, [id number], [id number] #### [facility] (DEFAULT) [address] [place] [address] 05282 Man Diff? Auto Normal [facility] Comment on above: Performed By: #### 7 452669, 17009247, [id number], [id number] #### [facility] (DEFAULT) [address] [place] [address] 85739 MCH (RBC) [Entitic mass] 29 pg Normal 24-34 [facility] Comment on above: Performed By: #### 7 046438, 39781144, [id number], [id number] #### [facility] (DEFAULT) [address] [place] [address] 24625 MCHC (RBC) [Mass/Vol] 33 g/dL Normal 26-37 [facility] Comment on above: Performed By: #### 7 980172, 14374671, [id number], [id number] #### [facility] (DEFAULT) [address] [place] [address] 83549 MCV (RBC) [Entitic vol] 89 fL Normal 81-100 [facility] Comment on above: Performed By: #### 7 584676, 78260434, [id number], [id number] #### [facility] (DEFAULT) [address] [place] [address] 04538 Platelet 460 x10 High 138-427 [facility] Comment on above: Performed By: #### 7 242646, 55062487, [id number], [id number] #### [facility] (DEFAULT) [address] [place] [address] 81966 Platelet mean volume (Bld) [Entitic vol] 8.7 fL Normal 6.3-10.2 [facility] Comment on above: Performed By: #### 7 838236, 24196118, [id number], [id number] #### [facility] (DEFAULT) [address] [place] [address] 14116 RBC 4.68 x10 Normal 3.70-5.30 [facility] Comment on above: Performed By: #### 7 868052, 28905110, [id number], [id number] #### [facility] (DEFAULT) [address] [place] [address] 03947 WBC 8.4 x10 Normal 3.5-10.5 [facility] Comment on above: Performed By: #### 7 415184, 96370922, [id number], [id number] #### [facility] (DEFAULT) [address] [place] [address] 78843 CMP Standardon 02-08-2022 eGFR Non AA >60 Invalid Interpretation Code [facility] Comment on above: Performed By: #### 7 228481, 45548056, [id number], [id number] #### [facility] (DEFAULT) [address] [place] [address] 85124 eGFR AA >60 Invalid Interpretation Code [facility] Comment on above: Result Comment: Agency Trainer antony Kidney disease could be indicated at eGFRs of less than 60 ml/min/1.73m2. Kidney Failure is indicated at less than 15 ml/min/1.73m2 Performed By: #### 7 193553, 38498298, [id number], [id number] #### [facility] (DEFAULT) [address] [place] [address] 62473 Albumin [Mass/Vol] 3.9 g/dL Normal 3.5-5.0 [facility] Comment on above: Performed By: #### 7 447626, 59487425, [id number], [id number] #### [facility] (DEFAULT) [address] [place] [address] 38161 Albumin/Globulin [Mass ratio] 1.1 {ratio} Low 1.4-2.6 [facility] Comment on above: Performed By: #### 7 523282, 09764199, [id number], [id number] #### [facility] (DEFAULT) [address] [place] [address] 97369 Alk Phos 83 IU/L Normal 32-91 [facility] Comment on above: Performed By: #### 7 136775, 87143578, [id number], [id number] #### [facility] (DEFAULT) [address] [place] [address] 01290 ALT [Catalytic activity/Vol] 24.0 U/L Normal 14.0-54.0 [facility] Comment on above: Performed By: #### 7 532268, 39675711, [id number], [id number] #### [facility] (DEFAULT) [address] [place] [address] 67483 Anion gap [Moles/Vol] 13.0 mmol/L Normal 5.0-19.0 [facility] Comment on above: Performed By: #### 7 246901, 31212767, [id number], [id number] #### [facility] (DEFAULT) [address] [place] [address] 00467 AST [Catalytic activity/Vol] 21 U/L Normal 15-41 [facility] Comment on above: Performed By: #### 7 295571, 11301298, 2349001110, [id number] #### [facility] (DEFAULT) [address] [place] [address] 65948 Bili Total 0.5 mg/dL Normal 0.3-1.2 [facility] Comment on above: Performed By: #### 7 229959, 00561526, [id number], [id number] #### [facility] (DEFAULT) [address] [place] [address] 33171 Calcium [Mass/Vol] 9.1 mg/dL Normal 8.9-10.3 [facility] Comment on above: Performed By: #### 7 [id number], [id number], [id number], [id number] #### [facility] (DEFAULT) [address] [place] [address] 07317 Chloride [Moles/Vol] 100 mmol/L Low 101-111 [facility] Comment on above: Performed By: #### 7 [id number], [id number], [id number], [id number] #### [facility] (DEFAULT) [address] [place] [address] 07371 CO2 [Moles/Vol] 29 mmol/L Normal 21-32 [facility] Comment on above: Performed By: #### 7 [id number], [id number], [id number], [id number] #### [facility] (DEFAULT) [address] [place] [address] 48126 Creatinine [Mass/Vol] 0.59 mg/dL Low 0.60-1.30 [facility] Comment on above: Performed By: #### 7 [id number], [id number], [id number], [id number] #### [facility] (DEFAULT) [address] [place] [address] 19426 Globulin (S) [Mass/Vol] 3.5 g/dL Normal 1.5-4.3 [facility] Comment on above: Performed By: #### 7 [id number], [id number], [id number], [id number] #### [facility] (DEFAULT) [address] [place] [address] 94875 Glucose [Mass/Vol] 129.0 mg/dL High 74.0-118.0 [facility] Comment on above: Performed By: #### 7 [id number], [id number], [id number], [id number] #### [facility] (DEFAULT) [address] [place] [address] 47747 Osmolality 277 mOsm/L Invalid Interpretation Code [facility] Comment on above: Performed By: #### 7 [id number], [id number], [id number], [id number] #### [facility] (DEFAULT) [address] [place] [address] 54279 Potassium [Moles/Vol] 4.0 mmol/L Normal 3.6-5.1 [facility] Comment on above: Performed By: #### 7 [id number], [id number], [id number], [id number] #### [facility] (DEFAULT) [address] [place] [address] 39053 Protein [Mass/Vol] 7.4 g/dL Normal 6.5-8.1 [facility] Comment on above: Performed By: #### 7 [id number], [id number], [id number], [id number] #### [facility] (DEFAULT) [address] [place] [address] 11721 Sodium [Moles/Vol] 138.0 mmol/L Normal 136.0-144.0 [facility] Comment on above: Performed By: #### 7 608406, [id number], [id number], [id number] #### [facility] (DEFAULT) [address] [place] [address] 51961 Urea nitrogen [Mass/Vol] 12 mg/dL Normal 8-26 [facility] Comment on above: Performed By: #### 7 [id number], [id number], [id number], [id number] #### [facility] (DEFAULT) [address] [place] [address] Urea nitrogen/Creatinine [Mass ratio] 20.0 mg/mg High 4.6-16.2 [facility] Comment on above: Performed By: #### 7 650753, [id number], [id number], [id number] #### [facility] (DEFAULT) [address] [place] [address] Coding Summaryon 02-08-2022 Coding Summary HTMLBase 64 GvtxmiwyICj1oJr+PGhl YWQ+CM8OIIZuQ66rdPVz fB5YC9uYJK0WYRUZAQOX FF4LCY9mxGY6BDomW4Wh biAv UdzbyNOcBE34YMr1CFT5 kHxkWVdnaW2tpYQeT8y0 EvAxOJ01dQ44DPcwLZRi ZsD7UlCxptaskUUg Y0zkMmKwgUUqCdt+PHRh YmxlIHdpZHRoPScxMDAl OeIjnPowLP6gOr3sNVHa LWNvbGxhcHNlOiBj t2pvGQEmCWkvGQ7fcGxh F1RmePY3PKDwa7y0Tj58 dHI+ZGGiWTQ9uYvqTVmt u056SvSjd9awLCX3 bEUwELejGGW0L47yt1U4 XJPgQGUlTEF8dSU7kY8o kYemaoylP2HqfRNpPtU2 KVW1yFGmuY9hlZut kxvhoG2uUoo+O47NPJ8E MIHDFB7OHfo5Q5LaQwms dHI+RW83GDIrBS80pQDn rVKwd9wceUe9EzDu FKZlACY4mWzyBTudk1Ht VWJgU38osWHxd2W9OPGm cBihlEJuRqWiqJZ0sS8t PGyfgfkvv2tlcxze Zrlxw1ojdr44vG86S91e YZbnWHGyIJI4XKAhAMLy oMxgsv1ptF2hNb7+IDxj e7bsb5rrpPt4UpYu EIHhipCstSmvPHG5b5Ye Pb39P6JyeDsfd7TtYgr3 wr12zMAvu7X4kJE2JGin DEUbvU3eNXwvSpR9 YAYiPuBvgS32iCUdYIim Eb9iaUopzDscLC1mHXIh nsyjOOAmgI4aRMRajDPa cGgeCB5lHOQkmsat e928HmJfJYO3NKSoaQRn R1DdpR4xUhTiKUWlVQJq H2JmuYFqBSkxP235CXrt KkH4ADVibpQrH5Sq VFOsdDinNsE9r0F7Ko1Q r6PkctdkOLS6GFbsOCA6 HyGcZbHzShF6V0ByUyi0 XBNcbYrhBV6zY5Mt HUAbrlcxqfnhhSC8SUOq JTKweO92uHNkKLzqZh7n h9R2a553VGXoTHTztU26 Sd5orAljHYHvoXNP dS0xsdadn9prhmgtXdPe BNHeMWd2RKp5LAWgtTnj RzXqPLZ1PgA4FBI1wEVn aO8baLmunotacR5v Oyc+P05ydV3lGMG3BRW9 byhvSFXoeeBkZF33JW00 C0JsEangjFTfdTK+PGRp aiFijBygLR9zKzLq z5gkv4BjHWjfQ7JwMIMh LCiyWvi8NSVwYRV0oVC0 oG9hNBJpSOjgt7O2nEC7 G5SuttOhfk9ul3og DZCgVQqbG67qjCSev0P5 HXTkqVX7PIQprLukZuGd yV62Ggw+GSBaoXszo5Kc Wpizf8myk3mxtFt7 IjMwJSIgdmFsaWduPSJ0 i9VwOy63L41pOZinUMHt YBIsKGRtCJNkvOqeaj3c jQ9uFe2+PGNvbCB3 wJE2rZ6bULDaKbH5YZdy C963TqJolNYqWnwoa2ke s5srsZs3LnZgEARfovEo aVzqPQV4v3FmHl48 T92yVXadMGJsSHNoPSSb OPOwbSimlm2doD3zGf3+ BV8vs3cbpk50vK90kCN+ LMFrLMC4sWgpYMnz RZPndW9rQGrfVrY2XGDs QfYvqY38sMVhKCabIe8v bIwonHrmOQ9sZXNidtgf y184PuUab0kxCABr aLJaMWjyHKZ4L48ei6Q7 CTPzLZUxSZG2pIG1mU3j bGlnbjogbGVmdDsgdmVy tHovTGwzTTpeI469 IHRvcDsnPlBhdGllbnQg PcIfLDk0V1SbTfj7SJDh mEvlZA5ioPPeWJzvKc3l jYzlkTxlVC0wWRIi oebpd212YzMjz0pxASXo pAXkCFyqDAQ8M44bp6D6 JSZaIJUgFRY5oZQ6dW3v bGlnbjogbGVmdDsg joIlcVfyGBygLTztC006 IHRvcDsnPkJpcnRoIERh xTT5ON19YG91lVQln5H9 gNZ3K2AbWPMlvjot wwybkEI6SSHzEIPhcC54 Jo9swNohMu4iTSEhNLT0 LBGbcTFuX6DqgN7qHnSg DUDpNTWuT8BueREd KPyeA929ZLuoKsM6VVKt kdKhS2GkVNZwrHttFvN4 b2Z4Oo4IE6X4LE73IY03 qVDxr5K4uMP6V1Pl NENsgsdibgrdfYZ3OOQy DUIqsC47Md7pbMbdSn8e VAAbXAW3UQKjvUOrA5Di jH9rNtKmQZDgLLCy I9EpvGIxYEajB952PPya FfA6ZZCmawLwF4AnMWCd eFbtQyX5f5I1Bj2BTTo6 TA67QM94dVXwh6J7 bOT9Y0QmTATfamescsdv hZX9OVQnHZMheJ03Tl1g dFmuGh1gZYFmGHY0LXZp yMTwJ7KywS9aHiDr BIXdAQHfB5SxlFRpSPtu N207PAyaJrL3RIGunoJc Y7OaDFErlMiuNiM8l0O6 Qp4RAIKfYB24SLG9 cYK7PM24PW12R5PfGqtn dGFibGU+PHRhYmxlIHdp ZHRoPScxMDAlJyBzdHls ZQ0gMe5fVYBfVQFi rFnrhNDuHsHcp9xfYYCk FQyhQM8tyLldK0XxfYZ1 AWEyo3m0Pm09Q72yC2Ku dXA+NUEsjBX4tDU2 sF8oJqGwGeZ2LGtqI123 XjPyyDRxVrfux7nqo6jf uUp9VtT8HWJgbdNfdIdu YSX1g6DkLl83L83t IHdpZHRoPSIxNSUiIHZh pWcazj8buN7nBw5+PGNv wLH6oHS7tX8hNuAcGgJ1 VYetL160WaFxyJPb Eehnq2nql4zfvKn3FiWl BYZxttIjvOvrDKM4d0Xx Yh70I8ChfPbgc5MfTwg9 xh82rTZol8G5aKX5 T5HyXSRctojmoCQrmFbt SD1uGVDftvljXAFfsG8g RYSoN1c6XbRfJuK7EPrq A4XofhG0HDKhhKUp DNjrEXC9A54iv2D3YDXw XKJbPJV3gEB8kT2ejMjc bjogbGVmdDsgdmVydGlj GGpmCMwnN707HNEw pFghERLaxZ4aIPFcoBEu aLbvHA8gIHKzxmchWaFO O6ALHEUYOYOXNTPaCRjk dGQ+NNIiBPT5sTen QPnmZVBpjT6mHCHtO9x1 FpQiNaH3VWfiG6HxYNTr wpnuAf20nN4iQiCfZnO0 GSzrI7FqzaG4GIVx rAAkKOtzQEL2T82yk8C0 QOHiCBBuTXR8hJT1fV3x bGlnbjogbGVmdDsgdmVy nAhwYFzeRMutM489 JLYefPeySzAxAwU7DnZ4 Ejn1G9QaTnc6GZAbfWwb ZU2gvOGoYUgnEf3uxNjb mDseLG6hTKNefzxp VVAqjJ0cUDNbwAUuiSbr GN8xGUUznogsy458FdGh ZUD1BKLhrWTfX3NiaB8c MkAdJVDhSDJuE0Ws vXMxKQlyN304AUusDnJ5 ZODtugEpP6XxWLGbgVli FrS0i1H3Ps20ErRGBKGs czwvdGQ+PHRkIHN0 hOkmETbtEXFnrB7gBGSx O2g0CnBkUfS1YYcuJ5Ez VHMxtytzQv14mH2bEhCt HcZ2MBvwB6HfguI4 MKVfdXTpWXsrSAC2Q01p w0L2HPPuNVVbCVB9hGG2 oS5qfQjlbkuyzUMuhBsy dmVydGljYWwtYWxp R759XITpfJsjMmJOXXKK RTwvdGQ+ZWTvZHO2eJbg YPanQWDjjG5vLSRkI8u6 ZhClEaT8QSpiB9Cv HHOdqjyiDu63uO8wPcYa ZmD6TRqbW5UhgeK3YQQw jZDuZMzgNLD0J22yp4H8 IYGmDLWjMFL1lFX6 wW3mcUrmoruyrSTabFkz rdFzxQbmDRsrBFidP965 FFKleUjvJv0PPL49QF90 F4UsHcpcfUFjgXR+ PHRhYmxlIHdpZHRoPScx YHGhAjYacCrrRV1vKi8f ZGVyLWNvbGxhcHNlOiBj x5amIBLvSIggUB8d kGfwO6ZgpCV8BKAkp2i8 Jg84T43yV9WeaHL+PGNv sRO1kUN8aZ5lKiRqSyA5 FEroS376JbEelCZv Ouvcq0ymk4ystYg3SgQn JYGrifCthDyhSBN7d5Eh Wm98J67pRDgyFNAaIQEi DKEjRNUshMpmbq6q bP4cGb2+CGQaeSC3xOY6 wB3qTtUvQxE2XQehE915 AxXyfWXnArjkO57cK4Ll dXA+IMWeNau4CGNh zGjiFD9akCGiTRwbHl0m XUT7GkCkTuSgWSvsC5Cq EBCzpgwkajkleCR2PVUh YHRziF04Be8caMxs Ow9fLFPtRTK2ESNejJWi Z2RibI4hNvQhQSEhXLYq M1BmxYRiGQxdN880OYrs MiQ6IGCgqhWbL2El TYBnnXzbOmU0q2F3Rd5J mFhmbDXuTT6wZnEqWUf9 O2OnPzb6BKCsePfiUO5u bKGvAZyxMp2mfPei eHjkDI4cLSFfvwszp215 GnFls4kwAAQxxJIdXNzu TST9E89qe1D7DTDdQEMt URV5iOS3mF6hlNyy bjogbGVmdDsgdmVydGlj BJkmXFgmI352DHRgzEac GhOYNbk8D6MgWuj0GPBj lOdsQZ5pvHToMQhy Eh2ydOqldMjxZD7lJRBg kqfmi009NoFkm8dxWDVm fQXkSTtvEMA8B19dv1N9 NXTuLDZzYBK6yBM9 uD3bnLzkwwcabHHpxBpi pwVwgDnmIZpuMUhpH832 JHLeeSdaSt9SYbd5U4Ic Hai4RJKpuJqzIR5n pPLsQJctMp2unRpxgVdt SQ0wDHKxieurj147GiLy i4vbKQUxpLBbPTajAUA0 G32vk8N9HXJlTSWm JVW4yQF0zV5ubTestsdw bGVmdDsgdmVydGljYWwt EOrqS470CILjuVogGxCr eWVyOjwvdGQ+PC90 ts01J1TxZnavDqz2APUg PYG3qQK8qC8aUAYwXTcx s7M7lMM6Q7QrmvIksj5x u0yjAXSzSTcpA62l bGF (more content not included)... Normal [facility] Extra SSTon 02-08-2022 Tube Collected Yes Invalid Interpretation Code [facility] Comment on above: Performed By: #### 1 [id number] ####[facility] (DEFAULT)[address] [place] [address] Lipid Panel Standardon 02-08 Cholesterol [Mass/Vol] 200.0 mg/dL Normal 66.0-200.0 [facility] Comment on above: Result Comment: Abril rable - Less than 200 mg/dL Borderline high risk - 200-239 mg/dL High risk - 240 mg/dL and over. Performed By: #### 7 [id number], [id number] #### [facility] (DEFAULT) [address] [place] [address]16 Cholesterol in HDL [Mass/Vol] 40 mg/dL Normal 40-71 [facility] Comment on above: Result Comment: High risk - <40 mg/dL. Performed By: #### 7 [id number], [id number], [id number], [id number] #### [facility] (DEFAULT) [address] [place] [address] 46746 Cholesterol in LDL [Mass/Vol] 112 mg/dL High 1-100 [facility] Comment on above: Result Comment: Opti mal - Less than 100 mg/dL Borderline high risk - 130-159 mg/dL High risk - 160-189 mg/dL. Performed By: #### 7 [id number], [id number], [id number] #### [facility] (DEFAULT) [address] [place] [address] 73784 Cholesterol.total/C holesterol in HDL [Mass ratio] 5.0 {ratio} High 0.0-4.5 [facility] Comment on above: Performed By: #### 7 [id number], [id number], [id number], [id number] #### [facility] (DEFAULT) [address] [place] [address] 85546 Triglyceride [Mass/Vol] 242.0 mg/dL High 0.0-150.0 [facility] Comment on above: Performed By: #### 7 [id number], [id number], [id number], [id number] #### [facility] (DEFAULT) [address] [place] [address] 32465 VLDL. 48 mg/dL High 5-40 [facility] Comment on above: Performed By: #### 7 [id number], [id number], [id number], [id number] #### [facility] (DEFAULT) [address] [place] [address] 97628 Miscellaneous Testing LCon 0 02-08-2022 Test Code LC 385726 Invalid Interpretation Code [facility] Comment on above: Order Comment: test code 243731 lav room temp andsst refrigerate Performed By: #### 1 [id number] ####[facility] (DEFAULT)[address] [place] [address] Test Name LC a1-Antitrypsin Deficiency Invalid Interpretation Code [facility] Comment on above: Order Comment: test code 962659 lav room temp andsst refrigerate Performed By: #### 1 [id number] ####[facility] (DEFAULT)[address] [place] [address]002 U Micro Albumin 1on 02-09-20 22 U Micro Albumin <3.0 Normal 0.0-18.9 [facility] Comment on above: Performed By: #### 3 [id number] #### [facility] (DEFAULT) [address] [place] [address] 58657 XR Chest 2 Viewson 2 XR Chest 2 Views EXAM: XR Chest 2 Views HISTORY: Chronic obstructive pulmonary disease. COMPARISON: Chest study dated 07/22/2019 TECHNIQUE: PA and lateral views of the chest were obtained. FINDINGS: Heart and mediastinal contours are unremarkable in appearance. No acute infiltrate or consolidations are seen. No obvious pneumothorax. Mild degenerative changes in the dorsal spine with slight convexity to the right. IMPRESSION: No acute process seen in the chest. Final Dictated by: Jeyson Butterfield MD Dictated DT/TM: 02/08/22 12:58 Signed (Electronic Signature): eJyson Butterfield MD 02/08/22 4:02 pm Technologist: MELANIE [facility] C Urineon 02-05-2022 C Urine No growth at 2 days. Normal [facility] Comment on above: Performed By: #### 6 [id number] ####[facility] (DEFAULT)[address] [place] [address] 39759 Outside Recordson 12-09-2021 Outside Records [id number]#1.00OTGTIFF [facility] Consent Formson 07-21-2021 Consent Forms [id number] #1.00OTGTIFF [facility] Progress Note - Nurseon Progress Note - Nurse Antigen test ordered, test resulted negative, patient informed of negative result. [Electronically Signed on: 07/14/2021 09:35 EST] Sallie Fernandez RN [Verified on: 07/14/2021 09:35 EST] Sallie Fernandez RN [facility] Consent Formson 04-07-2021 Consent Forms [id number] #1.00OTGTIFF [facility] .QC Respiratory Panel 2.1 (B ioFire)on 04-05-2021 Internal Control-Resp Panel 2.1(BioFire) Pass [facility] Comment on above: Order Comment: Order ed by Estrellita. [[id number]] Performed By: #### 6 [id number] #### [facility] (DEFAULT) [address] [place] [address] Encounters Encounter Date Encounter Type Care Provider Facility Start: 08-31-2023 End: 09-01-2023 ambulatory [facility] Facility:[facility] Start: 08-25-2023 End: 11-24-2023 ambulatory Harsh Salvador Facility:[facility] Start: 08-25-2023 End: 08-26-2023 ambulatory [facility] Facility:[facility] Start: 08-14-2023 Orders Only Shaikh Casey EDDY Work Phone: [facility] Comment on above: Type 2 diabetes aneta itus without complication, without long- term current use of insulin ([facility]) (Primary Dx) Start: 07-20-2023 End: 07-20-2023 ambulatory SHAIKH CASEY Not Available Start: 07-20-2023 Patient encounter procedure chico Gonzalez MD Work Phone: [facility] Start: 05-26-2023 End: 05-27-2023 ambulatory Maryuri VINCENT Facility:[facility] Start: 11-18-2022 ambulatory Yoandy CASEY Chopra y:H1 Plan of Treatment Date Care Activity Detail Author Start: 07-20-2026 Screening for malign ant neoplasm of colon [facility] Start: 04-09-2025 Glaucoma screening Diabetes: R etinopathy Screening [facility] Start: 10-26-2023 End: 10-26-2023 Patient encounter procedure 10/26/2023 1:00 PM EDT Office Visit [facility] [address] [place] [address] Shaikh Gonzalez MD [address] [place] [id number] [facility] Start: 03-10-2023 Influenza vaccination Influenza Vacc ine (#1) [facility] Start: 03-18-2018 Hemoglobin A1c measurement Diabetes: Hemoglobin A1C [facility] Start: 2008 Screening for malign ant neoplasm of breast Mammogram [facility] Start: 1998 Screening for malign ant neoplasm of cervix [facility] Start: 1989 Screening for malign ant neoplasm of cervix Pap Smear [facility] Start: 1987 Urine screening for protein Diabetes: Urine Protein Screening [facility] Start: 1968 Screening for malign ant neoplasm of colon [facility] Immunizations Immunization Date Immunization Notes Care Provider Fa [facility] 06-09-2021 Moderna SARS-CoV-2 Vaccination Shaikh Casey EDDY Work Phone: [facility] 05-03-2021 influenza, injectabl e, quadrivalent, contains preservative Shaikh Casey EDDY Work Phone: [facility] 05-03-2021 influenza, injectabl e, quadrivalent, preservative free Shaikh Casey EDDY Work Phone: [facility] 05-03-2021 influenza virus vacc ine, unspecified formulation Shaikh Casey EDDY Work Phone: [facility] 05-07-2020 influenza, injectabl e, quadrivalent, contains preservative Shaikh Casey EDDY Work Phone: [facility] 05-07-2020 influenza, injectabl e, quadrivalent, preservative free Shaikh Casey EDDY Work Phone: [facility] 12-10-2001 measles, mumps and rubella virus vaccine Shaikh Casey EDDY Work Phone: [facility] Payers Date Payer Category Payer Unknown BCBS BCBS [id number] 2023-Present [phone] [address] [place] [address] [id number] 1968 Unknown [id number] 1968 Unknown [id number] 1959 Unknown [id number] Social History Date Type Detail Facility Start: 07-18-2023 Tobacco smoking stat [facility] Ex-smoker [facility] End: 07-10-2006 History of tobacco use Current smoker [facility] End: 07-10-2006 History of tobacco use Cigarette Smoker [facility] Start: 07-20-2023 Alcohol intake Lifetime non-d lyric (finding) [facility] Start: 07-20-2023 History of Social function [facility] Start: 07-20-2023 Tobacco use panel [facility] Start: 06-26-2023 Alcohol Comment caffeine: more than 4 cups per day ; soda [facility] Start: 1970 Sex Assigned At Not on file [facility] Medical Equipment Procedure Code Equipment Code Equipment Origin al Text Equipment Identifier Dates 1 each by In Vit ro route in the morning. [id number] Start: 07-20-2023 End: 10-18-2023 1 each in the morning. [id number] Start: 07-26-2023 End: 10-24-2023 Medication management note 08-03-2021 Note Date & Type Note Facility 08-03-2021 Note - From: Colette Angelo LPN ([facility] ([facility])) To: Vaishali Perez CNP; Sent: 08/03/2021 11:29:40 EST Subject: Medication Management Due Date/Time: 08/04/2021 11:12:00 EST From: [facility] To: Vaishali Perez CNP Sent: August 03, 2021 10:12:37 AM REGIONAL OPERATIONS MANAGER Subject: Medication Management Due: August 04, 2021 12:07:16 AM REGIONAL OPERATIONS MANAGER On Hold Pending Signature Drug: semaglutide (Rybelsus 7 mg oral tablet), TAKE 1 TABLET BY MOUTH ONCE DAILY Quantity: 30 tab(s) Days Supply: 60 Refills: 0 Substitutions Allowed Notes from Pharmacy: Dispensed Drug: semaglutide (Rybelsus 7 mg oral tablet), TAKE 1 TABLET BY MOUTH ONCE DAILY Quantity: 30 tab(s) Days Supply: 60 Refills: 0 Substitutions Allowed Notes from Pharmacy: Patient is requesting refills, Thank you 08/03/2021 11:10:51 AM From: Vaishali Perez To: [facility] Sent: 08/03/2021 11:46:15 EST Subject: Medication Management Submitted: Complete:semaglutide (Rybelsus 7 mg oral tablet) Signed by Vaishali Perez 08/03/2021 11:46:00 EST Approved semaglutide (RYBELSUS 7MG) TAKE 1 TABLET BY MOUTH ONCE DAILY Qty: 30 tab(s) Days Supply: 60 Refills: 0 Substitutions Allowed Route To Pharmacy - [facility] Note from Pharmacy: Patient is requesting refills, Thank you 08/03/2021 11:10:51 AM From: Vaishali Perez To: [facility] ([facility]); Sent: 08/03/2021 11:47:28 EST Subject: RE: Medication Management medicine sent to pharmacy - please re-schedule diabetes check-up in next 1-2 weeks From: Colette Angelo LPN ([facility] ([facility])) To: Vaughn Smith; Sent: 08/03/2021 11:53:02 EST Subject: FW: Medication Management Can you please schedule?? From: Vaughn Smith To: [facility] ([facility]); Sent: 08/03/2021 13:09:50 EST Subject: RE: Medication Management Pt is scheduled MondayAugust 11 at 4pm! [facility] Medication management note 07-05-2021 Note Date & Type Note Facility 07-05-2021 Note - From: Colette Angelo LPN ([facility] ([facility])) To: Vaishali Perez; Sent: 07/05/2021 08:39:56 EST Subject: FW: Medication Management Due Date/Time: 07/06/2021 08:25:00 EST From: [facility] To: Vaishali Perez NETSUITE DEVELOPER Sent: July 05, 2021 7:25:23 AM REGIONAL OPERATIONS MANAGER Subject: Medication Management Due: July 06, 2021 12:08:22 AM REGIONAL OPERATIONS MANAGER On Hold Pending Signature Drug: semaglutide (Rybelsus 7 mg oral tablet), TAKE 1 TABLET BY MOUTH ONCE DAILY Quantity: 30 tab(s) Days Supply: 30 Refills: 1 Substitutions Allowed Notes from Pharmacy: Dispensed Drug: semaglutide (Rybelsus 7 mg oral tablet), TAKE 1 TABLET BY MOUTH ONCE DAILY Quantity: 30 tab(s) Days Supply: 30 Refills: 1 Substitutions Allowed Notes from Pharmacy: Patient is requesting refills, Thank you 07/05/2021 8:19:07 AM On Hold Pending Signature Drug: esomeprazole (esomeprazole 20 mg oral delayed release capsule), TAKE 1 CAPSULE BY MOUTH ONCE DAILY Quantity: 90 cap(s) Days Supply: 90 Refills: 0 Substitutions Allowed Notes from Pharmacy: Dispensed Drug: esomeprazole (esomeprazole 20 mg oral delayed release capsule), TAKE 1 CAPSULE BY MOUTH ONCE DAILY Quantity: 90 cap(s) Days Supply: 90 Refills: 0 Substitutions Allowed Notes from Pharmacy: Patient is requesting refills, thank you 07/05/2021 8:18:49 AM From: Vaishali Perez To: [facility] Sent: 07/05/2021 09:03:52 EST Subject: FW: Medication Management Submitted: Complete:esomeprazole (esomeprazole 20 mg oral delayed release capsule) Signed by Vaishali Perez 07/05/2021 09:03:00 EST Submitted: Complete:semaglutide (Rybelsus 7 mg oral tablet) Signed by Vaishali Perez 07/05/2021 09:03:00 EST Approved semaglutide (RYBELSUS 7MG) TAKE 1 TABLET BY MOUTH ONCE DAILY Qty: 30 tab(s) Days Supply: 30 Refills: 1 Substitutions Allowed Route To Pharmacy - [facility] Note from Pharmacy: Patient is requesting refills, Thank you 07/05/2021 8:19:07 AM Approved esomeprazole (ESOMEPRA MAG 20MG ) TAKE 1 CAPSULE BY MOUTH ONCE DAILY Qty: 90 cap(s) Days Supply: 90 Refills: 0 Substitutions Allowed Route To Pharmacy - [facility] Note from Pharmacy: Patient is requesting refills, thank you 07/05/2021 8:18:49 AM From: Vaishali Perez To: [facility] ([facility]); Sent: 07/05/2021 09:06:10 EST Subject: RE: Medication Management These meds were filled today - need to schedule diabetes check-up this month [facility] Medication management note 05-12-2021 Note Date & Type Note Facility 05-12-2021 Note - From: Colette Angelo LPN ([facility] ([facility])) To: Vaishali Perez; Sent: 05/12/2021 13:13:42 EDT Subject: FW: Medication Management Due Date/Time: 05/13/2021 12:56:00 EDT From: [facility] To: Vaishali Perez NETSUITE DEVELOPER Sent: May 12, 2021 11:56:35 AM CDT Subject: Medication Management Due: May 13, 2021 12:07:49 AM CDT On Hold Pending Signature Drug: budesonide-formoterol (budesonide-formoterol 160 mcg-4.5 mcg/inh inhalation aerosol), INHALE 2 PUFFS BY MOUTH TWICE DAILY (IN THE MORNING AND IN THE EVENING) RINSE MOUTH AND THROAT AFTER USE Quantity: 10.2 gm Days Supply: 30 Refills: 3 Substitutions Allowed Notes from Pharmacy: Dispensed Drug: budesonide-formoterol (budesonide-formoterol 160 mcg-4.5 mcg/inh inhalation aerosol), INHALE 2 PUFFS BY MOUTH TWICE DAILY (IN THE MORNING AND IN THE EVENING) RINSE MOUTH AND THROAT AFTER USE Quantity: 10.2 gm Days Supply: 30 Refills: 3 Substitutions Allowed Notes from Pharmacy: pt requesting refills 05/12/2021 12:54:46 PM From: Vaishali Perez To: [facility] Sent: 05/12/2021 13:16:51 EDT Subject: FW: Medication Management Submitted: Complete:budesonide-formoterol (Symbicort 160 mcg-4.5 mcg/inh inhalation aerosol) Signed by Vaishali Perez 05/12/2021 13:16:00 EDT Approved budesonide-formoterol (BUDES/FORMOT AER 160-4.5) INHALE 2 PUFFS BY MOUTH TWICE DAILY (IN THE MORNING AND IN THE EVENING) RINSE MOUTH AND THROAT AFTER USE Qty: 10.2 gm Days Supply: 30 Refills: 3 Substitutions Allowed Route To Pharmacy - [facility] Note from Pharmacy: pt requesting refills 05/12/2021 12:54:46 PM From: Vaishali Perez To: [facility] ([facility]); Sent: 05/12/2021 13:17:03 EDT Subject: RE: Medication Management medicine re-filled [facility] Medication management note 04-14-2021 Note Date & Type Note Facility 04-14-2021 Note - From: Colette Angelo LPN ([facility] ([facility])) To: Vaishali Perez; Sent: 04/13/2021 12:00:13 EDT Subject: FW: Medication Management Due Date/Time: 04/14/2021 11:50:00 EDT From: [facility] To: Vaishali Perez CNP Sent: April 13, 2021 10:50:52 AM CDT Subject: Medication Management Due: April 14, 2021 12:09:02 AM CDT On Hold Pending Signature Drug: valACYclovir (valACYclovir 1 g oral tablet), TAKE 1 TABLET BY MOUTH TWICE DAILY FOR 24 HOURS FOR RECURRENT COLD SORE Quantity: 4 tab(s) Days Supply: 2 Refills: 0 Substitutions Allowed Notes from Pharmacy: Dispensed Drug: valACYclovir (valACYclovir 1 g oral tablet), TAKE 1 TABLET BY MOUTH TWICE DAILY FOR 24 HOURS FOR RECURRENT COLD SORE Quantity: 4 tab(s) Days Supply: 2 Refills: 0 Substitutions Allowed Notes from Pharmacy: Patient is requesting refills, Thank you 04/13/2021 11:49:23 AM On Hold Pending Signature Drug: valACYclovir (valACYclovir 1 g oral tablet), TAKE 1 TABLET BY MOUTH TWICE DAILY FOR 24 HOURS FOR RECURRENT COLD SORE Quantity: 4 tab(s) Days Supply: 2 Refills: 0 Substitutions Allowed Notes from Pharmacy: Dispensed Drug: valACYclovir (valACYclovir 1 g oral tablet), TAKE 1 TABLET BY MOUTH TWICE DAILY FOR 24 HOURS FOR RECURRENT COLD SORE Quantity: 4 tab(s) Days Supply: 2 Refills: 0 Substitutions Allowed Notes from Pharmacy: Patient is requesting refills, Thank you 04/13/2021 11:49:23 AM From: Vaishali Perez To: [facility] Sent: 04/14/2021 08:21:26 EDT Subject: FW: Medication Management Submitted: Complete:valACYclovir (Valtrex 1 g oral tablet) Signed by Vaishali Perez 04/14/2021 08:21:00 EDT Approved valACYclovir (VALACYCLOVIR 1GM) TAKE 1 TABLET BY MOUTH TWICE DAILY FOR 24 HOURS FOR RECURRENT COLD SORE Qty: 4 tab(s) Days Supply: 2 Refills: 0 Substitutions Allowed Route To Pharmacy - [facility] Note from Pharmacy: Patient is requesting refills, Thank you 04/13/2021 11:49:23 AM Approved valACYclovir (VALACYCLOVIR 1GM) TAKE 1 TABLET BY MOUTH TWICE DAILY FOR 24 HOURS FOR RECURRENT COLD SORE Qty: 4 tab(s) Days Supply: 2 Refills: 0 Substitutions Allowed Route To Pharmacy - [facility] Note from Pharmacy: Patient is requesting refills, Thank you 04/13/2021 11:49:23 AM [facility] Medication management note 04-13-2021 Note Date & Type Note Facility 04-13-2021 Note - From: Colette Angelo LPN ([facility] ([facility] To: [facility] ([facility]); Sent: 04/13/2021 08:08:18 EDT Subject: FW: Medication Management Due Date/Time: 04/13/2021 14:59:00 EDT From: [facility] To: Vaishali Perez CNP Sent: April 12, 2021 1:59:35 PM CDT Subject: Medication Management Due: April 13, 2021 12:09:37 AM CDT On Hold Pending Signature Drug: fluticasone nasal (fluticasone 50 mcg/inh nasal spray), PLACE 2 SPRAYS INTO EACH NOSTRIL ONCE DAILY Quantity: 16 gm Days Supply: 30 Refills: 4 Substitutions Allowed Notes from Pharmacy: Dispensed Drug: fluticasone nasal (fluticasone 50 mcg/inh nasal spray), PLACE 2 SPRAYS INTO EACH NOSTRIL ONCE DAILY Quantity: 16 gm Days Supply: 30 Refills: 4 Substitutions Allowed Notes from Pharmacy: pt requesting refills 04/12/2021 2:55:29 PM On Hold Pending Signature Drug: montelukast (montelukast 10 mg oral tablet), TAKE 1 TABLET BY MOUTH EVERY EVENING Quantity: 90 tab(s) Days Supply: 90 Refills: 0 Substitutions Allowed Notes from Pharmacy: Dispensed Drug: montelukast (montelukast 10 mg oral tablet), TAKE 1 TABLET BY MOUTH EVERY EVENING Quantity: 90 tab(s) Days Supply: 90 Refills: 0 Substitutions Allowed Notes from Pharmacy: pt requesting refills 04/12/2021 2:53:43 PM On Hold Pending [facility]: metFORMIN (MetFORMIN (Eqv-Glucophage XR) 500 mg oral tablet, extended release), TAKE 1 TABLET BY MOUTH ONCE DAILY WITH EVENING MEAL Quantity: 90 tab(s) Days Supply: 90 Refills: 0 Substitutions Allowed Notes from Pharmacy: Dispensed Drug: metFORMIN (MetFORMIN (Eqv-Glucophage XR) 500 mg oral tablet, extended release), TAKE 1 TABLET BY MOUTH ONCE DAILY WITH EVENING MEAL Quantity: 90 tab(s) Days Supply: 90 Refills: 0 Substitutions Allowed Notes from Pharmacy: pt requesting refills 04/12/2021 2:53:29 PM On Hold Pending [facility]: GNP ALL DAY ALLERGY, TAKE 1 TABLET BY MOUTH ONCE DAILY Quantity: 90 tab(s) Days Supply: 90 Refills: 0 Substitutions Allowed Notes from Pharmacy: Dispensed Drug: GNP ALL DAY ALLERGY, TAKE 1 TABLET BY MOUTH ONCE DAILY Quantity: 90 tab(s) Days Supply: 90 Refills: 0 Substitutions Allowed Notes from Pharmacy: pt requesting refills 04/12/2021 2:52:57 PM On Hold Pending [facility]: albuterol (Albuterol (Eqv-ProAir HFA) 90 mcg/inh inhalation aerosol), INHALE 1 PUFF BY MOUTH EVERY SIX HOURS NEEDED FOR WHEEZING Quantity: 8.5 gm Days Supply: 50 Refills: 0 Substitutions Allowed Notes from Pharmacy: Dispensed Drug: albuterol (Albuterol (Eqv-ProAir HFA) 90 mcg/inh inhalation aerosol), INHALE 1 PUFF BY MOUTH EVERY SIX HOURS NEEDED FOR WHEEZING Quantity: 8.5 gm Days Supply: 50 Refills: 0 Substitutions Allowed Notes from Pharmacy: pt requesting refills 04/12/2021 2:52:37 PM On Hold Pending [facility] Drug: adapalene topical (adapalene 0.1% topical cream), APPLY 1 APPLICATION TOPICALLY TO THE AFFECTED AREA(S) ONCE DAILY AT BEDTIME FOR 30 DAYS. Quantity: 45 gm Days Supply: 30 Refills: 0 Substitutions Allowed Notes from Pharmacy: Dispensed Drug: adapalene topical (adapalene 0.1% topical cream), APPLY 1 APPLICATION TOPICALLY TO THE AFFECTED AREA(S) ONCE DAILY AT BEDTIME FOR 30 DAYS. Quantity: 45 gm Days Supply: 30 Refills: 0 Substitutions Allowed Notes from Pharmacy: pt requesting refills 04/12/2021 2:52:22 PM On Hold Pending Signature Drug: carvedilol (carvedilol 25 mg oral tablet), TAKE 1 TABLET BY MOUTH ONCE DAILY Quantity: 90 tab(s) Days Supply: 90 Refills: 0 Substitutions Allowed Notes from Pharmacy: Dispensed Drug: carvedilol (carvedilol 25 mg oral tablet), TAKE 1 TABLET BY MOUTH ONCE DAILY Quantity: 90 tab(s) Days Supply: 90 Refills: 0 Substitutions Allowed Notes from Pharmacy: pt requesting refills 04/12/2021 2:50:14 PM From: Lacey Grossman To: [facility] Sent: 04/13/2021 08:15:14 EDT Subject: FW: Medication Management Submitted: Complete:adapalene topical (Differin 0.1% topical cream) Signed by Lacey Grossman 04/13/2021 08:15:00 EDT Submitted: Complete:albuterol (Albuterol (Eqv-ProAir HFA) 90 mcg/inh inhalation aerosol) Signed by Lacey Grossman 04/13/2021 08:15:00 EDT Submitted: Complete:carvedilol (carvedilol 25 mg oral tablet) Signed by Lacey Grossman 04/13/2021 08:15:00 EDT Submitted: Complete:metFORMIN (MetFORMIN (Eqv-Glucophage XR) 500 mg oral tablet, extended release) Signed by Lacey Grossman 04/13/2021 08:15:00 EDT Submitted: Complete:montelukast (montelukast 10 mg oral tablet) Signed by Lacey Grossman 04/13/2021 08:15:00 EDT Submitted: Complete:fluticasone nasal (Flonase 50 mcg/inh nasal spray) Signed by Lacey Grossman 04/13 (more content not included)... [facility] Clinical Note 04-05-2021 Note Date & Type Note Facility 04-05-2021 Note Nasal swab performed without complication. Patient tolerated well. Education given. Patient verbalized understanding. [Electronically Signed on: 04/05/2021 15:02 EDT] [facility] [place] [Verified on: 04/05/2021 15:02 EDT] [facility] Evaluation note Note Date & Type Note Facility Evaluation note Diagnosis Type 2 diabetes mellitus without complication, without long-term current use of insulin ([facility])- Primary documented in this encounter [facility] Summary Purpose Family History No Family History Records FoundNo Family History Records FoundNo Family History Records FoundNo Family History Records Found Advance Directives No Advanced Directives Records FoundNo Advanced Directives Records FoundNo Advanced Directives Records FoundNo Advanced Directives Records Found Additional Source Comments INFORMATION SOURCE (unrecogn ized section and content) DATE CREATED AUTHOR 03/19/2022 [facility] DATE CREATED AUTHOR AUTHOR'S ORGANIZ ATION 11/18/2022 [facility] DATE CREATED AUTHOR AUTHOR'S ORGANIZ ATION 07/21/2023 [facility] DATE CREATED AUTHOR AUTHOR'S ORGANIZ ATION 11/26/2023 Nain Cline [facility] Care Teams (unrecognized sec tion and content) [employer] Relationship Specialty Start Date End Date Shaikh Gonzalez MD PCP - General Internal Medicine 04/09/23 FOR RECORDS PERTAINING TO PATIENTS WHO ARE OR HAVE BEEN ENROLLED IN A CHEMICAL DEPENDENCY/SUBSTANCEABUSE PROGRAM, SOME INFORMATION MAY BE OMITTED. This clinical summary was aggregated from multiple sources. Caution should be exercised in using it in the provision of clinical care. This summary normalizes information from multiple sources, and as a consequence, information in this document may materially change the coding, format and clinical context of patient data. In addition, data may be omitted in some cases. CLINICAL DECISIONS SHOULD BE BASED ON THE PRIMARY CLINICAL RECORDS. [employer] provides no warranty or guarantee of the accuracy or completeness of information in this document.
[2023-12-08 08:55] LABS: Creatinine Urine Random 79.12 mg/dL (20.00-300.00); Microalbum Creatinine Ratio Ur 16.4 mg/g (0.0-29.9); Microalbumin Urine Random <1.3 mg/dL (<=30.0)
== END 2023-12-08 07:43 | disposition home or self-care (01) ==
PROVIDERS: PCP Internal Medicine; Visit Provider Internal Medicine
DX: E78.49 Other hyperlipidemia (principal); I10 Essential (primary) hypertension; E11.9 Type 2 diabetes mellitus without complications
CPT/HCPCS: 80053; 80061; 82043; 82570; 83036

== ENCOUNTER 2023-12-11 07:41 | Outpatient (OUT) | payer OTHER, BC, SELFPAY ==
--- OUTSIDE RECORDS SUMMARY | 2023-12-11 07:45 | XMS_ITS | CCD ---
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 Phone SHAIKH Yoandy GONZALEZ Attending Unavailable SHAIKH Yoandy GONZALEZ Admitting Unavailable SHAIKH GONZALEZ Attending Shaikh Mccann MD Primary Care Provider Maryuri VINCENT Attending Maryuri Claros Attending Unavailable Maryuri VINCENT Attending Unavailable Harsh Salvador Attending Unavailable Allergies Allergy Classification Reported Allergen(s) Allergy Type Date of Onset Reaction(s) Facility (1 source) Sulfamethoxazole / Trimethoprim Drug Allergy 07-12-19 [facility] (1 source) Amoxicillin-Pot Clavulanate Propensity to adverse reactions 07-12-19 [facility] (1 source) No Known Medication Allergies; Translations: [No Known Medication Allergies] Propensity to adverse reactions (disorder) [facility] Repository Medications Current Medications Medication Drug [...] complication, without long-term current use of insulin ([facility]) Take 1 tablet (14 mg) by mouth [...] (Bld) 0.04 International_Unit/m L Invalid Interpretation Code [facility] Comment on above: Performed By: #### 1 [id number] #### [facility] [address] [place] [address] M. tuberculosis stim IFN-g by CD4+ CD8+ T-cells corrected for background Qn (Bld) 0.27 International_Unit/m L Invalid Interpretation Code [facility] Comment on above: Performed By: #### 1 [id number] #### [facility] [address] [place] [address] M. tuberculosis stim IFN-g by CD4+ T-cells corrected for background Qn (Bld) 0.26 International_Unit/m L Invalid Interpretation Code [facility] Comment on above: Performed By: #### 1 [id number] #### [facility] [address] [place] [address] M. tuberculosis stim IFN-g Ql (Bld) [Interp] Negative Invalid Interpretation Code Negative [facility] Comment on above: Result Comment: No [...] interferon gamma. Chemiluminescence immunoassay methodology Performed at: [facility] [id number] PhD Roz Malin Performed By: #### 1 [id number] #### [facility] [address] [place] [address] Mitogen stimulated gamma interferon corrected for background Qn (Bld) >10.00 Invalid Interpretation Code [facility] Comment on above: Performed By: #### 1 [id number] #### [facility] [address] [place] [address] Service comment (Unsp spec) [Interp] Comment Invalid Interpretation Code [facility] Comment on above: Result Comment: Daniel [...] for the test. Performed By: #### 1 [id number] #### [facility] [address] [place] [address] Quantiferon-TB Plus (Client Incubated)on 08-29-2023 Gamma interferon background IA Qn (Bld) 0.09 International_Unit/m L Invalid Interpretation Code [facility] Comment on above: Performed By: #### 1 [id number] #### [facility] [address] [place] [address] M. tuberculosis stim IFN-g by CD4+ CD8+ T-cells corrected for background Qn (Bld) 0.47 International_Unit/m L Invalid Interpretation Code [facility] Comment on above: Performed By: #### 1 [id number] #### [facility] [address] [place] [address] M. tuberculosis stim IFN-g by CD4+ T-cells corrected for background Qn (Bld) 1.26 International_Unit/m L Invalid Interpretation Code [facility] Comment on above: Performed By: #### 1 [id number] #### [facility] [address] [place] [address] M. tuberculosis stim IFN-g Ql (Bld) [Interp] Positive Abnormal Negative [facility] Comment on above: Result Comment: A [...] interferon gamma. Chemiluminescence immunoassay methodology Performed at: [facility] [id number] PhD Roz Malin Performed By: #### 1 [id number], [id number] #### [facility] [address] [place] [address] Mitogen stimulated gamma interferon corrected for background Qn (Bld) >10.00 Invalid Interpretation Code [facility] Comment on above: Performed By: #### 1 [id number], [id number] #### [facility] [address] [place] [address] Service comment (Unsp spec) [Interp] Comment Invalid Interpretation Code [facility] Comment on above: Result Comment: Daniel [...] for the test. Performed By: #### 1 [id number], [id number], [id number], [id number] #### [facility] [address] [place] [address] Hep Bs Abon 08-26-2023 HBV surface Ab Ql (S) Reactive Invalid Interpretation Code [facility] Comment on above: Result Comment: Non Reactive: Inconsistent with immunity, less than 10 mIU/mL Reactive: Consistent with immunity, greater than 9.9 mIU/mL Performed at: [facility] [id number] [place], [place] [id number] PhD Roz Malin Performed By: #### 1 [id number], [id number] #### [facility] [address] [place] [address] Measles/Mumps/Rubella Immuni tyon 08-26-2023 MeV IgG IA Qn (S) 33.2 A unit/mL Invalid Interpretation Code Immune >16.4 [facility] Comment on above: Result Comment: Nega tive <13.5 Equivocal 13.5 - 16.4 Positive >16.4 Presence of antibodies to Rubeola is presumptive evidence of immunity except when acute infection is suspected. Performed By: #### 1 [id number], [id number], [id number], [id number] #### [facility] [address] [place] [address] MuV IgG IA Qn (S) <9.0 Low Immune >10.9 [facility] Comment on above: Result Comment: Nega tive <9.0 Equivocal 9.0 - 10.9 Positive >10.9 A positive result generally indicates past exposure to Mumps virus or previous vaccination. Performed at: [facility] [id number] [place], [place] [id number] PhD Roz Malin Performed By: #### 1 [id number], [id number], [id number] #### [facility] [address] [place] [address] Rubella virus IgG Qn (S) 5.63 [IU]/mL Invalid Interpretation Code Immune >0.99 [facility] Comment on above: Result Comment: Non- immune <0.90 Equivocal 0.90 - 0.99 Immune >0.99 Performed By: #### 1 [id number], [id number], [id number], [id number] #### [facility] [address] [place] [address] Varic IgGon 08-26-2023 VZV IgG IA Qn (S) 1462 Invalid Interpretation Code Immune >165 [facility] Comment on above: Result Comment: Nega tive <135 Equivocal 135 - 165 Positive >165 A positive result generally indicates exposure to the pathogen or administration of specific immunoglobulins, but it is not indication of active infection or stage of disease. Performed at: [facility] [address] [id number] PhD Roz Malin Performed By: #### 1 [id number], [id number], [id number], [id number] #### [facility] [address] [place] [address] Outside Recordson 03-18-2022 Outside Records [id number] 7#1.00[facility] Outside Recordson 03-16-2022 Outside Records [id number] #1.00[facility] Miscellaneous Testing LCon 0 02-17-2022 Misc. Test Result LC COMMENT Invalid Interpretation Code [facility] Comment on above: Order Comment: test code [id number] lav room temp andsst refrigerate Result Comment: Test Ordered: [id number] A1A, Quant+Genotype(Rfx Pheno) Ancha-6-Codqjuiqsbi, Serum 134 mg/dL BN Reference Range: 101-187 AAT, DNA Analysis Comment TG Result: c.1096 G>A (p.Xfa608Sqv), Z allele - Not detected c.863 A>T (p.Qog199Wpj), S allele - Not detected Not associated [...] health care providers to discuss results at [phone] ([phone]). Test Details: Two variants analyzed: c.1096 G>A (p.Tdq088Dad), commonly referred to as the Z allele or PI*Z c.863 A>T (p.Yqj043Yke), commonly referred to as the S allele [...] developed and its performance characteristics determined by [employer]. It has not been cleared or approved by the Food and Drug Administration. References: Mitch RA, Michelle G, Melissa ML, Pillai M, Cross CE, K, Paulie DK, Emory SL, Azar JM, Juana ASIF, Tab C, Pooja J. The Diagnosis and Management of Alpha- 1 Antitrypsin Deficiency in the Adult. Chronic Obstr Pulm Dis. 2016 Dec 13;3(3):668-682. doi: 10.53864/jcopdf.3..0182. PMID: 43958148; PMCID: GLT0581872. Juana ASIF, Tom Velasquez, Liz JONES. Alpha-1 Antitrypsin Deficiency. 2005May 05 [Updated 2019November 27]. In: Rivera MP, Delmer HH, Ruthy RA, et al., editors. Stacey(R) [Internet]. [place] ([place]): [facility]; 7293-8613. Available from: https://www.ncbi.nlm.nih.gov/books/KVR2256/ Electronically Signed by: Leroy Garner, PhD Director, Molecular Genetics A1A Rfx to Phenotype Note: BN Not Indicated Performed At: CB [facility] [place] [address] [place], [place] [id number] Roz Malin PhD Ph:[phone] Performed At: BN [facility] [place] [address] [place], [place] [id number] Guanako Arias MD Ph:[phone] Performed At: TG [facility] [address] [place], [place] [id number] Kailee Felipe [facility] Ph:[phone] Performed By: #### 1 [id number] ####[facility] (DEFAULT)[address] [place] [address] Coding Summaryon 02-14-2022 Coding Summary HTMLBase 64 EpsdczpeSLz9wAj+PGhl YWQ+QX9TMADbC71kaGIk kN8BB3nWWK9LTYIWWXWF LY2GFS2dnRA1KUwyY7Va biAv JjefxKFeQW93ZUo8SRM9 fJqdDBswnG3ttOVvG3w7 KyOfPD21sU53NCupHHXh JrM8GdSdzxnxgMGt B7vtHuCgrVMaDjt+PHRh YmxlIHdpZHRoPScxMDAl DeDczMqpFK1dPs0gZFVs LWNvbGxhcHNlOiBj f1jlAYGsMRziHH5chWxo A4UreMQ1GIFtn5p2Dy42 dHI+CFJcWAN3iAchJLdp q211ZbVkc6zvFHV8 eUOkTIkiRDE2L36gr2L2 ORFlNHSvZYV2zIX5jS0m vEffuhhsT7DbvRHdLpI4 NRA0eDVstX6smTfw ycnnoU5mHsw+K70RSR0Y OWEYHA0FRuc2E6PjVenv dHI+AH35OYYdEJ85sOCk nLUjy8rtkXo4FzTu DUPwIOG4gByoJIzri6Qg CVOrP39eyJVhj6A2IZPe sMteyEOhHmPkzVL2pX1q GGtxmjrfp3pswaox Xgnbf4zhjy89vQ98Y84z TAjmRTAePTB9IJSyHALc jGovnc2fvX7lEr6+IDxj q8zfq0ddyVs6KjNy RKCxeqGvsLuuBJS2a3Zb Mg88J1XfvSlzk5GvFgo2 jg88cSYdv0S6fZH3HRrq JEKveV4tVSmrPcQ6 BAOvDfTmvM38zGAbZDwa Tv2abSgxsVeyOT5kXFVa azsfEQMfyD8gLKMxeIEd rKcbDZ9gOQBtnted y880IzDgDLF1FTXznVVm M4PeoR2bJmLvSFNgYYMy U4MopVWrSCodJ608ZMlf FdF6ZTEtgzAbR9Vn HXXtwKvlOvI2l8U0It8Z n0VeqzyiIDI3NSttJEX7 NjJ7RuIqZmS6M0AsRlo6 KMCdeHnuXL6kC7Ua ZVUcmlriolveaWC7EKMy UBTpaZ70zMShQGwdRl1r g6G7c104CIZcKPPynY40 Uv5zvNmfHQCycHQG qL1qnsxnj1hzwxmnSiCw IIZnEBa6XNb0THMxrQkk KxMaQDY0XtZ1UXF0qEDw gO8qrExnvieuwQ4j Oyc+D62moW1lVRF9TEL6 sjeuSBNjraEoUG27VO23 V3TmNclolOTigXJ+PGRp syDufSxlOU2sYpXd e1sdd9UlGUfvK7YaCWBj SQovUzl7PEKiJYO4kXY3 pQ1qUMZrSXilx5J7dGU2 O6QcpySukn3qc9lv WWBtREdxL80wnFVzu3Q3 YFUarSL8RDZnxXfsMkXn wT01Ltj+SRQwcNmka8Vk Bhnvf9xif1epqMb0 IjMwJSIgdmFsaWduPSJ0 k7SaYq73N92jVRhmQUUs CGEhPQTiOLWbaMudws5o sN7gIz3+PGNvbCB3 aKZ0fQ4gZIHaKgR4AUrq Z682KiCptPHkKtekf8sr d4gphRd0EnIfFCAepfKt hJhjQPA0h8CuYa52 D53rGQcxCVQmAKFrUBOn RROtgDzlto5mwK3aWi3+ JM6pe4xepo76uP89nJE+ GCHuGEJ9mDbnDWyr UVXezM3nHUdpIcS2NCUy PiVrkU00tUWjEQjfHs7y nAndxVncBQ5qXOOoyoum e087JfPfy6udKLGo oBNwQKnnBGD1Q55hn8W1 QAOoABNiWGZ9aHY2pC9d bGlnbjogbGVmdDsgdmVy rKrhNWcbNYzjU327 IHRvcDsnPlBhdGllbnQg PtDuUIs1Y6DuNty2OPQp fOycWU0hyVYcLPciFr8s cAninGuaGN7fQEUq cblan449WfIld6dgKZUb mBYgDXnmCTV1I46my7X1 AHFtBBSoKVL5bQV5pL9d bGlnbjogbGVmdDsg jvHebHidBHplCUfxH066 IHRvcDsnPkJpcnRoIERh fBP0DP95JV15dHSwz4H7 fWW6W8MuJODpuvqf tsqnqVG2AFDsWAXnmW78 Cs9oyEocNg1iVGQoKIR5 GAAwvNCvC2RtiY0nTfAk INNgOKFdZ7YwvSJq KTdwH433JPozAvZ3FSZs ukRlD6KnWPLwvXghEiE2 b7P3Uz9EQ1F8WH59OJ56 dJYor7Z9rMD2T3Kq RDTxkojnjysdgZH7NAYz SNXedC72Uc2xgAbwOt6g CFMzACC8JTRtoRVyN5Ip rD5cSjNgQWZlISAp M7SzhCNeFUrgB864ADko PpA8FEPrftBxJ6PmSTVj wTyzNjM9w1D4Mc8TVGh8 AP70SB60aVCla5R2 vII2E7NcHBDdmyheerid eNK1KLEhAAUxjJ54Tp5h fDnlSq3vTKTmMOM2PEUg uHLnZ5IuzO2mCcZj EQPrTELaQ4ApqXTrWUfb G426BWxtRnO6QEIobmPu D5JeGYDobKorLnN9q6I4 Vc1BANVrWV70OSW1 eVE7RO74GC11I5NfHzpp dGFibGU+PHRhYmxlIHdp ZHRoPScxMDAlJyBzdHls RR2dOf4hTAOoAKTo iArsgSGeGbBzn2deVOZp KXpgWE8miZpbW9OheHA6 ZTRfs4r7Qn65J45gM8Gk dXA+ZFZgqXD8fVA5 wV3oQmBuLkZ9VAbmQ387 YiVzvHXaSdckf6doi0ur cOo9GlZ0BHWxlpQhmAkx COX1n4UaWg27T23q IHdpZHRoPSIxNSUiIHZh zZchja2loZ6uGi0+PGNv tPW8gGO4zK4nFgFtLvT4 LQduQ373AxJxmNRl Pxwfa5grl2msyVg5UrYn WLOallPyrUliHGQ3o3Dd Wf70C9CljIxqm2OrZsz4 qo80cXYrz5G3uGZ1 Y6CsWZXawiiamHNpmNjd MM9tRIGwuynpNLQyjU9a BEJuT2w8WhStZyQ3KAxb N9QfjzU6XJWiiXRz MArfSRC7L99uy8B7GDLs YSPnJOI5mQN5wP1nbTzy bjogbGVmdDsgdmVydGlj OMcmCRwiY835HKRx oInjCPNxpL8jVIAxdBYv gMznYU0cCPUkvtelPzCG F7GRHEEGMYOVFLMvUKlf dGQ+AKJyEGX4pZvm RZdrYCVvfF4pTMAmT9z2 DkWuPhU1WTdoP8MlOHLr jjcbZp04fS7pUyVrSfN2 RGhyM2NnejB4LSUu fEHuMXtcJRN1Y18aq4N6 IWPiPCHkSWZ4sKC6hU4u bGlnbjogbGVmdDsgdmVy eKalYDlyISljV373 VLEomKfxCyTxLqG2RlY4 Pel8E6IjNjq3WMCieXxd UU4ozEOwUBpbBb3olOne nZxlIQ3yGOTctbix WMXifS0pERYweAPldKfo UY4tXHAyinxjo863WnVh PAB3RNPulUKdO2RurD8e RtJwVOFvDILiZ9Bo tMRrIMiqP887ETmrUrD5 BRCbbaIiP9NrIJFecSej SfI7t6O2At90TtUCNRLf czwvdGQ+PHRkIHN0 kQouCRdaIGKnfC9qCIIt H7h1BnEcEwZ4BYedE4Et XNFogfduEt02xN7eJpAj CdP8ZYykT3AwleR6 IQDfeWCjIXtlDWK5E91u z4X6BHRrQYGwNEF0tTV7 tW3tnCjzrstucGVgqLcl dmVydGljYWwtYWxp Y984GNQuvKfhHeXCWXLD RTwvdGQ+QTXrDBL6fRrw JNepVJWsbW7sBBTcY0g3 LuHeGqK4FMdtI1Lj BSOlmjidCp10tG5jCsSu PaA4MZukH2IgghA4QZYb zDLpWXrrHDI5Q44ii7D3 GMFvAZDqTMS5dPR8 rQ5woDkouehlxWFhnGhj gmWmuXzySYwiTCkfT039 ZUUhrLycTo0LCU21ZD80 Y1KuRyoljBFytJI+ PHRhYmxlIHdpZHRoPScx TRSmSwFkdLtaIW6oDe2s ZGVyLWNvbGxhcHNlOiBj l7pcNYArNIcmMG4v zLliK6KjvWT5ZSEnn9v2 Ls13P42pT1NtiML+PGNv fKT6xTC4aJ0lKtAgTpL2 ZFpzS629BwZwxBKs Msfxq9igl1liaVf6PiFm IHHrbxEzsZnwZTA3b6Oy Qk92K83iLAkxPCTlEHQq NGGwFWVyhDafai0k rH4mSz0+FEWhpRP6zAG7 eV1bRkTbNnN2GIobH821 XrXztHJwNcmdC23iS8Rh dXA+FMEeMmf0CGFp aXvfZL6eyMTsBVubPo6j AHC6MvKkWqRwOTvsO8Jt ZCUvkkabyjhasYF3JYWw CMZkwH75We6lfDff Ee3sPMAlXIF6WFOzfNTe A4MrwN2pUdNeVDVwPGDn F5LpsDDmXJliF249JFmq HfE9QDPzgcLmN2Ko WOBvgOrpPaC8l8U2Zh2E fAawmMEtCN3lZmQsPTg3 I6RjPwi7EQIocZhkDH3x nNBuKJtaOh8lnTcl mGrdRE5cCAFdwlvkh805 CpZis8bzYATujNTjOBkk OIO1X35lb6C4GINpRYYg REJ0ySJ9gX0pmUau bjogbGVmdDsgdmVydGlj GUfwDKcuY261ARIcmSqz ZgAWQif9Z6DcBkh5SNFs kJneUW2ceVMwGAlg Wk0peFhbhTqaNN9pDWEx efgla170DtQnq6qkUUQs sRRtLQbvYVX1S25ib1H4 JNGeFERzQBO4nJT3 mK4jaCajhlrdhQDqjEaz tfBjkGhrRQrfSPcaE688 GNYleEilJd5WDmw2E6Ka Pho7CLZulIitYY6i yGCmKViaXn3tgNqinCrk HN6wHVOyvjjqi974AjZo b6mrCIGepPZoOPdcBCU5 K48nh7C2BUDlDBLl JTJ3rLW4bJ4qcBdxlbiw bGVmdDsgdmVydGljYWwt OIftK789YIYyzYoqPsVf eWVyOjwvdGQ+PC90 xc27H9PqBejqTbf3PYIt ELQ2jNH4zC9kXPMqRByg e7I0lEV2J2TqguPtgs8i x3hvLLUjGXskX71w bGF (more content not included)... Normal [facility] Allergen Profile With Total IgE, Mirtha 02-13-2022 Class Description LC Comment Invalid Interpretation Code [facility] Comment on above: Result Comment: Levels of Specific IgE Class Description of Class ----- < 0.10 0 Negative 0.10 - 0.31 0/I Equivocal/Low 0.32 - 0.55 I Low 0.56 - 1.40 II Moderate 1.41 - 3.90 III High 3.91 - 19.00 IV Very High 19.01 - 100.00 V Very High >100.00 Very High Performed By: #### 3 [id number] ####[facility] (DEFAULT)[address] [place] [address] Y238-VeG D pteronyssinus LC 0.40 kunits/L Abnormal [facility] I [facility] Comment on above: Performed By: #### 2 [id number] ####[facility] (DEFAULT)[address] [place] [address] O508-JrN D farinae Mite LC 0.45 kunits/L Abnormal Class I [facility] Comment on above: Performed By: #### 2 [id number] ####[facility] (DEFAULT)[address] [place] [address] Q323-DyS Cat Hair/Dander,Irwin LC <0.10 Invalid Interpretation Code Class 0 [facility] Comment on above: Performed By: #### 0 [id number] ####[facility] (DEFAULT)[address] [place] [address] R232-KeO Dog Epithelia LC <0.10 Invalid Interpretation Code Class 0 [facility] Comment on above: Performed By: #### 4 [id number] ####[facility] (DEFAULT)[address] [place] [address] G544-FjO Mouse Urine LC <0.10 Invalid Interpretation Code [facility] 0 [facility] Comment on above: Result Comment: Perf ormed At: [facility] [id number] Guanako Arias MD Ph:[phone] Performed By: #### 6 [id number] ####[facility] (DEFAULT)[address] [place] [address] J515-BnO Bermuda Grass LC <0.10 Invalid Interpretation Code Class 0 [facility] Comment on above: Performed By: #### 5 [id number] ####[facility] (DEFAULT)[address] [place] [address] I577-UaR Garry LC <0.10 Invalid Interpretation Code Class 0 [facility] Comment on above: Performed By: #### 2 [id number] ####[facility] (DEFAULT)[address] [place] [address] H107-GtW Cockroach, Yoruba LC 0.45 kunits/L Abnormal Class I [facility] Comment on above: Performed By: #### 1 [id number] ####[facility] (DEFAULT)[address] [place] [address] 94945 IgE Total LC 63 IU/mL Invalid Interpretation Code 6-495 [facility] Comment on above: Performed By: #### 2 [id number] ####[facility] (DEFAULT)[address] [place] [address] G734-FcU Penicillium chrysogenum LC <0.10 Invalid Interpretation Code Class 0 [facility] Comment on above: Performed By: #### 5 [id number] ####[facility] (DEFAULT)[address] [place] [address] S294-CcY Cladosporium herbaru LC <0.10 Invalid Interpretation Code Class 0 [facility] Comment on above: Performed By: #### 1 [id number] ####[facility] (DEFAULT)[address] [place] [address] I590-JaT Aspergillus fumigatu LC <0.10 Invalid Interpretation Code Class 0 [facility] Comment on above: Performed By: #### 5 [id number] ####[facility] (DEFAULT)[address] [place] [address] P623-FdY Alternaria Alternata LC <0.10 Invalid Interpretation Code Class 0 [facility] Comment on above: Performed By: #### 3 [id number] ####[facility] (DEFAULT)[address] [place] [address] N861-EeD Maple/Bennett LC <0.10 Invalid Interpretation Code Class 0 [facility] Comment on above: Performed By: #### 1 [id number] ####[facility] (DEFAULT)[address] [place] [address] R048-IyO Common Silver Birch LC <0.10 Invalid Interpretation Code Class 0 [facility] Comment on above: Performed By: #### 5 [id number] ####[facility] (DEFAULT)[address] [place] [address] J928-DjK Greenlee, Mountain LC <0.10 Invalid Interpretation Code Class 0 [facility] Comment on above: Performed By: #### 3 [id number] ####[facility] (DEFAULT)[address] [place] [address] D274-HkQ Deford, White LC <0.10 Invalid Interpretation Code Class 0 [facility] Comment on above: Performed By: #### 3 [id number] ####[facility] (DEFAULT)[address] [place] [address] H938-BkS Elm, Lithuanian (White) LC <0.10 Invalid Interpretation Code Class 0 [facility] Comment on above: Performed By: #### 7 [id number] ####[facility] (DEFAULT)[address] [place] [address] X658-NuY Eden LC <0.10 Invalid Interpretation Code Class 0 [facility] Comment on above: Performed By: #### 1 [id number] ####[facility] (DEFAULT)[address] [place] [address] M482-LgH Maple Eminence [place] LC <0.10 Invalid Interpretation Code Class 0 [facility] Comment on above: Performed By: #### 1 [id number] ####[facility] (DEFAULT)[address] [place] [address] F169-ZsT Berkshire LC <0.10 Invalid Interpretation Code Class 0 [facility] Comment on above: Performed By: #### 2 [id number] ####[facility] (DEFAULT)[address] [place] [address] [id number] Aaron, [place] LC <0.10 Invalid Interpretation Code Class 0 [facility] Comment on above: Performed By: #### 5 [id number] ####[facility] (DEFAULT)[address] [place] [address] [id number] [place], [place] LC <0.10 Invalid Interpretation Code Class 0 [facility] Comment on above: Performed By: #### 8 [id number] ####[facility] (DEFAULT)[address] [place] [address] [id number] [place] LC <0.10 Invalid Interpretation Code Class 0 [facility] Comment on above: Performed By: #### 1 [id number] ####[facility] (DEFAULT)[address] [place] [id number] Rag[place], Short/Commo LC <0.10 Invalid Interpretation Code Class 0 [facility] Comment on above: Performed By: #### 8 [id number] ####[facility] (DEFAULT)[address] [place], [place] [id number] Thistle, [place] LC <0.10 Invalid Interpretation Code Class 0 [facility] Comment on above: Performed By: #### 0 [id number] ####[facility] (DEFAULT)[address] [place] [address] [id number] Sheep [place](Dock) LC <0.10 Invalid Interpretation Code Class 0 [facility] Comment on above: Performed By: #### 9 [id number] ####[facility] (DEFAULT)[address] [place] [id number] Coding Summaryon 02-09-2022 Coding Summary HTMLBase 64 YwebarhyZNn9oAj+PGhl YWQ+OD4AVOHqQ05xlWWh jT4QO8yQLN7KQYALVOJU XK8IOS1etMJ9LLyuJ4Pj biAv ZxfmdJOkRC14UCe6YCD0 cYzgWApqqB7umQKoI6i1 IiCiBE22vJ09RKzjHNUv OhX5RcHhubyimHVf D3rfLtWsnPUxZpg+PHRh YmxlIHdpZHRoPScxMDAl BiDrqBlhLR4fYb8aGTNt LWNvbGxhcHNlOiBj h3enJZZiPWkgZF5toObf J2MajBJ8FNUmi4n6Gg87 dHI+NCPuQTE4yDxnCYdx r682PnSwy9ibXIK3 jONqYWgnAZP7C96jn2B6 LKBcKDCtHWC3nKW5mQ2w cXispleeT8PtoVMcZdE5 QBQ9fJNdqC3pjBdp wmeatI5oSie+Q76KYM4R EUANAL8SYtx4G3YhJozg dHI+WP75ZDVuAF03rNLh vVJrn0xicBd5HhFl AOLxAYA7zFxeWNpxr0Cg YICbZ91jvRTvh0M4MUDc wVopkZSeLhJhtXV2hB0p NJpntthqs9bkieul Tjqee2wraj19bT77Y01m JZsiOSYuOKQ7FWPvFYVg sBnumb0feN6aPp8+IDxj g7fbn8vidUt1FgIr MTOruqAblVsbUMN5w1Nr Zm47M0XfdZfwa5NrUbu1 vx51oLJsu5G3mFC6FHxm THMgyN0xAIrmUmT4 IRQjAzDrhH73oHHqVLgp Cf7egFovjEbyUC4bREUn vrdtJMNodP0jMKVurZVh hNfbTZ4mTSUopqug b164SkSxBLF6VESnrTRj T0BmfM1sQhZuHMBfPVAn C6UqvQXoLBppB735LJho TaO5COSsmtLpZ7Ew CXRoxMzlMuB0o5D4Ce8Y k6NvlakzVXY1QXhsPZR9 GrUnCgPiKnP6D8GmMdh3 GTQmxWpnMQ0lV8Ad CYCyywoeolabsYH8DDFf KWDspT22hJJrBBpoFj4q x2A9d875UDBeINKxdL64 Lh3prNfiHLUeqAON nM0qiftvf0fwtuypAgIf NDUkQVv7NWy7JTWciGgx ZzHwIMA5VnK3KXZ7hVLz tJ7xwFplxuizaZ7z Oyc+Y07tcP5yUZP5OHI9 zpptRMZiyzSyCH86QM29 K8KwCkxncSUawVD+PGRp nzOmxAxiVX6dEyMq l1uzu6EsWMriM5RdOSKz NLusWet2LDQnVNW1fOF4 yN3qLXXlMLdfk5R2cRV2 Q2VjyvZhet3lv9ra GFGkQSzjH77ozJRdf8Q8 DEPhsZV7KHGdoXjyKsFo eK10Wsu+GQFidXnuz3Og Wjksg9jkv9jfeFc1 IjMwJSIgdmFsaWduPSJ0 x1OsTz86K12jWNsoFYDe LTEcJNSrSFOivRogcl9p bO9vUt6+PGNvbCB3 aUS7qQ6wHUMgCaI5XZgb R434XuYgpZOtUiyxq3yy y1vhhZe3HzVbFJThldRs zNguHIB0w5AeXl70 T47fSIggXQLiEZSzIYXp VOEnaXcnth2btS4yGk5+ CW0sx2adky14eZ16lCE+ DZGdGEV9eWibZFlf JEMdiY4nLYwaGlZ3ZWJe VxRnlI95hOTxGBmgTd4h eDlbvAfuWC5yLRQznskl z741JlCya9bnYRAh xCTzZYdkXBG4Y85lk4S7 BQHuHWEyWIU3aXF5oJ4h bGlnbjogbGVmdDsgdmVy jQrbZOnkVRrhX962 IHRvcDsnPlBhdGllbnQg SqOjCXc3R5FwSbt5HWAg cRjwUL2zjOUmCMsxMm8u jAshlAzhTX1aUHSd bmszr050HgSsr1jyBOVj eHCeSLjnWWR6I11gg6E4 NRYhBBAgNAZ3gYG6uR8n bGlnbjogbGVmdDsg bhRodGurTIdiKRxsQ147 IHRvcDsnPkJpcnRoIERh lLL3KU39EJ40lVBfg3F4 pBZ9F3JlRBVhtibp dwcblLL4VXSdISBaqM97 Qr2wkYdxPs7zXFJoUBX2 UNQecMIqR4SdiA9yXmQp FWXcLLPbR3BckLSo TSgeM515TEcuKdQ9KKHt ubLeQ0YnRGYwdMzrWaN6 x7Q8En3AT4H8ZO76UH91 nJKif8R9jCD2A0Zj OXXvgztyxqmdkLH0DHTg NPKihX85Jr3jhPkmHx7g XODzYTL4HPGprBTlS5Sb fE2jJxBrBKEnUUPc E1VekWYdKNijL227WBuo NfK6JCGfsyRxL3IoRFEq xBjfLbG9p6T3Ss8LJYl0 OX31PD05lNCsb1Q8 cEW3A7ByXAWnxipgulla fYO9VIExVKOarN89Fj0a fIoqGt0kTAPuYXX8NJAp zZYhL0IltK7oKfRr TWAzOQRlH9VzuGInJQwq N433ZXmsZmE5NYHlalAj X3QmVWXjdGkcEcF3e9S3 Px2UJTHiCI45GNO9 pOS5KF19DI06L2VsFkpd dGFibGU+PHRhYmxlIHdp ZHRoPScxMDAlJyBzdHls SS7gXs5kOWTjIZRh iEazoJDrLbSet8jyKOIy NBrrHN0peLpaI8WrcGJ9 VFSqv6l6Ge37W23jK7Ey dXA+EMYmfXG4qMN4 eW3hTnDhMsO1XIbeA866 PkLutGOmKgwec6iph3ip hTm3AeR8YFHwydOgvUrp YII9d6ZjOs95K83h IHdpZHRoPSIxNSUiIHZh xQxwry9xeY6aAh8+PGNv gDL6wUZ9tY4eKwQlLyO8 OTfyN358BhMvuOGn Mchyv8iiv4couFg4GaYl RTMyvhXgtCfyZAD0r1Fd Zm46L5RqsAmtv1KxWxg2 li19dYKhz0Z4fWP1 Y9MjSCLscjdpbWXlwTly HC2eNOJxtkkuMPFdxW3f HWSjI3o4BoXaXdF3BUxn T9OaraP5TZQsjJJy IQuePQA8N35ph7Y8FEWm EPDxURQ9mGB5tE2ifZdn bjogbGVmdDsgdmVydGlj ZGxuYWspF776HYBl xAzcCZXhjY3aORCxoKWu lXniWU8fWHWblnkrAyPY X6ZOKFCQVIXRHHLvKUsz dGQ+UBErQNB2pLdh AJbtLULesA4xKRFqA9i1 CbLmLmU4XIzsW4NhYRPb gtovQb15xM5xDqSkTwT9 KUdnK3GobgA3OMZl kXCvHYigVQF2O68av4O1 VGNtTDLrTLF5jCK4nB7s bGlnbjogbGVmdDsgdmVy fIjtQBopPHjfF834 KAJgxRirLnZfHkU5BkM6 Vis3S3EqQos0YWEckLbk ON2orUWvWNekNk7bsEct wJamYA2pKDFoktpm ALUkfE0pXPGiiOXruAyy JI2cMBQrbxbyh197LbCq CST2SVCpgKLhO8TqjR1j PdFvRNNsWSWkL0Bx tODoUOdeZ389KOeaZeE3 HBAbnkZsO2MyIWKzsNus QwP2y2W2Ar08PuVEJZCn czwvdGQ+PHRkIHN0 wYobXWpdUTTyxL2sNXAf D6f7JbJdVnN4KVpxD3Na QZJhxxfiPw30rK4zZhBb YyV0JLckG8DuzrU3 FSHpbRHxXEpkZGI3Z02a p8I3SAWuZCQdFDB9vSZ2 mU1fpCutluripFQaeElx dmVydGljYWwtYWxp X962HCNefZaeNzZLIQEG RTwvdGQ+POKwCSE5eUph TUuqQLJeuI9zWPHrO8y6 EhGsDsF6OXcyI0Cu GAOvnpgjXl67mA8rFeCp UwH0IBzuO1QaumY7HHUl zJSzOOtoHDN5S65zw8C9 UOGmBJXxWPP0fXG8 jH8qtXqpeldqgRLqiSzp abFhzCmsXYwfWZszX484 YHTcrCdiSe7RVN29BX89 W3DmVyqrxQGvwFL+ PHRhYmxlIHdpZHRoPScx HMGuOuXtkFhyJG1sSj5m ZGVyLWNvbGxhcHNlOiBj h4ueXOGyNGmcBE0l kOmpV0OqiQL2GVQah4b5 Uy31C93lZ6TslEN+PGNv vRO6nGE5iC9xUwVfJbM8 RMbbU730RoSvwSNi Xlwxk9vnj5nsxHa9UkHu TPXicnMgrDtcPRY5f0Zu Wr62R98yMVsqWUCvTYTb ABReQKAlzGucbo5i bO3eOi5+BXGihWF4wLG5 dR9hVbOnGsP6JJvuU818 VnXqiOJkQkrbQ29yO9Sv dXA+DDIqEvk7JDCl qTpgKX3duIYuCMtoDi6y DFK0PgDhVsPsEFxdP5Ty YCEshsezekewbUH3XINv EARcnJ16Ir1qyFdv Bo5gMRDcJTI2KHVxeULy W6RjyG2eCmBkRUAdANWf Z5TzvOTuRCicN390MGpy FqM1KMMrrvXsI1Nj KBBqkWowXjM3g8F9Mf1B jJgvuFJeIK8bFhUkPTw9 W0PfThh5IVIevOmgAK7e fDGnRSrxOo9vwOwm gAzpRR2mJXBdpkipt903 DnWld4alRCUqeMAnMVap UMN4I66rj6N6FCRyMVTv NNT7xTG8rI0hzPce bjogbGVmdDsgdmVydGlj SBhkNStxN430TKFnyQop WbMDOoe1L3LrHyq9FMQq lCfoOX7cdTKnVLxl Mt2mkFmrgQszWY3cETRg znpml221UwRdy6zmLEVp jYVyVBuhXIZ5E76ht3F3 XLFjUIXxCBF9iBO7 zQ4yrMwktnahyQRdlCxe oyXsiClmLYxxLHskG443 FOVqgDnoXh8GYek3J9Tn Rsg2OVYxpUjuVC6q pBFfPSjzIy8noWysxUmz QT9xVPTzvtqfv715GqDp q8iwYTSfmBTzRRhwFOM5 L27js0Q6TXAmTBOb ZPB5iWO8pV8nlIielajq bGVmdDsgdmVydGljYWwt YOauZ265YFDrnCayKwYy eWVyOjwvdGQ+PC90 xk60T1DqJiokYde4LSBz SAW6tXC1cC0gWZVoHFqj v3U1xTU7L4OlcuKlte7y d3juXCNdFWhpU24u bGF (more content not included)... Normal [facility] IGA Qn LCon 02-09-2022 Immunoglobulin A, Qn, Serum LC 332 mg/dL Invalid Interpretation Code 63-672 [facility] Comment on above: Result Comment: Perf ormed At: [facility] [address], [place] [id number] Roz Malin PhD Ph:[phone] Performed By: #### 3 [id number], [id number], [id number] ####[facility] (DEFAULT)[address] [place] [address] IGG Qn LCon 02-09-2022 Immunoglobulin G, Qn, Serum LC 1127 mg/dL Invalid Interpretation Code 499-1538 [facility] Comment on above: Result Comment: [facility] [address], [place] [id number] Roz Malin PhD Ph:[phone] Performed By: #### 3 [id number], [id number], [id number] ####[facility] (DEFAULT)[address] [place] [address] IGM Qn LCon 02-09-2022 Immunoglobulin M, Qn, Serum LC 89 mg/dL Invalid Interpretation Code [facility] Comment on above: Result Comment: [facility]: [facility] [address], [place] [id number] Roz Malin PhD Ph:[phone] Performed By: #### 3 [id number], [id number], [id number] ####[facility] (DEFAULT)[address] [place] [address] Provider Orderson 02-09-2022 Provider Orders [id number] #1.00OTGTIFF Normal [facility] Pulmonary Procedureon 2021 Pulmonary Procedure [id number] #1.00OTGTIFF I agree with the computerized interpretation. [...] [Transcribed on: 02/09/2022 06:38 EDT] BK Normal [facility] .Auto Diff 1on 02-08-2022 Auto Garrett % 6 % Normal 1-12 [facility] Comment on above: Performed By: #### 7 [id number], [id number], [id number], [id number] #### [facility] (DEFAULT) [address] [place] [address]104 Baso Abs# 0.1 x10 Normal 0.0-0.2 [facility] Comment on above: Performed By: #### 7 763243, [id number], [id number], [id number] #### [facility] (DEFAULT) [address] [place] [address] 32601 Basophils/100 WBC (Bld) 1.1 % Normal 0.2-2.0 [facility] Comment on above: Performed By: #### 7 149462, 21404469, [id number], [id number] #### [facility] (DEFAULT) [address] [place] [address] 23490 Eos Abs# 0.3 x10 Normal 0.0-0.4 [facility] Comment on above: Performed By: #### 7 740935, 27048220, [id number], [id number] #### [facility] (DEFAULT) [address] [place] [address] 14658 Eosinophils/100 WBC (Bld) 3.1 % Normal 0.9-4.0 [facility] Comment on above: Performed By: #### 7 708957, 96031171, [id number], [id number] #### [facility] (DEFAULT) [address] [place] [address] 31932 Lymph Abs# 3.0 x10 High 1.3-2.9 [facility] Comment on above: Performed By: #### 7 405821, 05526147, [id number], [id number] #### [facility] (DEFAULT) [address] [place] [address] 79269 Lymphocytes/100 WBC (Bld) 36 % Normal 14-48 [facility] Comment on above: Performed By: #### 7 870947, 57910865, [id number], [id number] #### [facility] (DEFAULT) [address] [place] [address] Garrett Abs# 0.5 x10 Normal 0.0-0.8 [facility] Comment on above: Performed By: #### 7 146913, 14576341, [id number], [id number] #### [facility] (DEFAULT) [address] [place] [address] Neut Abs# 4.5 x10 Normal 1.5-9.2 [facility] Comment on above: Performed By: #### 7 772051, 51268919, [id number], [id number] #### [facility] (DEFAULT) [address] [place] [address] Neutrophils/100 WBC (Bld) 54 % Normal 44-88 [facility] Comment on above: Performed By: #### 7 858434, 26948797, [id number], [id number] #### [facility] (DEFAULT) [address] [place] [address] CBC w/ Auto Diffon 2 Erythrocyte distribution width (RBC) [Ratio] 13.0 % Normal 11.5-15.0 [facility] Comment on above: Performed By: #### 7 312286, 57058964, [id number], [id number] #### [facility] (DEFAULT) [address] [place] [address] Hematocrit (Bld) [Volume fraction] 41.5 % High 33.7-40.4 [facility] Comment on above: Performed By: #### 7 529924, 41992787, [id number], [id number] #### [facility] (DEFAULT) [address] [place] [address] Hemoglobin (Bld) [Mass/Vol] 13.7 g/dL Normal 11.3-15.9 [facility] Comment on above: Performed By: #### 7 120778, 13391195, 2645273029, [id number] #### [facility] (DEFAULT) [address] [place] [address] 51317 Instr WBC 8.4 x10 Invalid Interpretation Code [facility] Comment on above: Performed By: #### 7 060175, 34170219, [id number], [id number] #### [facility] (DEFAULT) [address] [place] [address] 29109 Man Diff? Auto Normal [facility] Comment on above: Performed By: #### 7 856328, 25961460, [id number], [id number] #### [facility] (DEFAULT) [address] [place] [address] 17543 MCH (RBC) [Entitic mass] 29 pg Normal 24-34 [facility] Comment on above: Performed By: #### 7 654522, 04957752, [id number], [id number] #### [facility] (DEFAULT) [address] [place] [address] 83536 MCHC (RBC) [Mass/Vol] 33 g/dL Normal 26-37 [facility] Comment on above: Performed By: #### 7 468848, 48124011, 9941922975, [id number] #### [facility] (DEFAULT) [address] [place] [address] 27232 MCV (RBC) [Entitic vol] 89 fL Normal 81-100 [facility] Comment on above: Performed By: #### 7 067307, 50325718, [id number], [id number] #### [facility] (DEFAULT) [address] [place] [address] 81303 Platelet 460 x10 High 138-427 [facility] Comment on above: Performed By: #### 7 053031, 51613307, 4089120110, [id number] #### [facility] (DEFAULT) [address] [place] [address] 25353 Platelet mean volume (Bld) [Entitic vol] 8.7 fL Normal 6.3-10.2 [facility] Comment on above: Performed By: #### 7 374941, 12710849, 6064898427, [id number] #### [facility] (DEFAULT) [address] [place] [address] 71404 RBC 4.68 x10 Normal 3.70-5.30 [facility] Comment on above: Performed By: #### 7 476713, 55563515, [id number], [id number] #### [facility] (DEFAULT) [address] [place] [address] 88191 WBC 8.4 x10 Normal 3.5-10.5 [facility] Comment on above: Performed By: #### 7 728795, 06869058, 6409011941, [id number] #### [facility] (DEFAULT) [address] [place] [address] 73376 CMP Standardon 02-08-2022 eGFR Non AA >60 Invalid Interpretation Code [facility] Comment on above: Performed By: #### 7 044111, 34859638, [id number], [id number] #### [facility] (DEFAULT) [address] [place] [address] 26362 eGFR AA >60 Invalid Interpretation Code [facility] Comment on above: Result Comment: [employer] Salesperson antony Kidney disease could be indicated at eGFRs of less than 60 ml/min/1.73m2. Kidney Failure is indicated at less than 15 ml/min/1.73m2 Performed By: #### 7 163540, 94509378, [id number], [id number] #### [facility] (DEFAULT) [address] [place] [address] 02508 Albumin [Mass/Vol] 3.9 g/dL Normal 3.5-5.0 [facility] Comment on above: Performed By: #### 7 247365, 74930647, 2806663293, [id number] #### [facility] (DEFAULT) [address] [place] [address] 57813 Albumin/Globulin [Mass ratio] 1.1 {ratio} Low 1.4-2.6 [facility] Comment on above: Performed By: #### 7 757877, 15564905, [id number], [id number] #### [facility] (DEFAULT) [address] [place] [address] 92401 Alk Phos 83 IU/L Normal 32-91 [facility] Comment on above: Performed By: #### 7 016978, 96380707, 2802034626, [id number] #### [facility] (DEFAULT) [address] [place] [address] 58191 ALT [Catalytic activity/Vol] 24.0 U/L Normal 14.0-54.0 [facility] Comment on above: Performed By: #### 7 118369, 81829764, 5248101787, [id number] #### [facility] (DEFAULT) [address] [place] [address] 54349 Anion gap [Moles/Vol] 13.0 mmol/L Normal 5.0-19.0 [facility] Comment on above: Performed By: #### 7 578463, 61402484, [id number], [id number] #### [facility] (DEFAULT) [address] [place] [address] 76586 AST [Catalytic activity/Vol] 21 U/L Normal 15-41 [facility] Comment on above: Performed By: #### 7 766282, 47584671, 4911609743, [id number] #### [facility] (DEFAULT) [address] [place] [address] 93330 Bili Total 0.5 mg/dL Normal 0.3-1.2 [facility] Comment on above: Performed By: #### 7 559349, 06308248, 9272908721, [id number] #### [facility] (DEFAULT) [address] [place] [address] 95172 Calcium [Mass/Vol] 9.1 mg/dL Normal 8.9-10.3 [facility] Comment on above: Performed By: #### 7 184711, 64379789, 1186559415, [id number] #### [facility] (DEFAULT) [address] [place] [address] 16101 Chloride [Moles/Vol] 100 mmol/L Low 101-111 [facility] Comment on above: Performed By: #### 7 317102, 66399734, 0586037643, [id number] #### [facility] (DEFAULT) [address] [place] [address] 99092 CO2 [Moles/Vol] 29 mmol/L Normal 21-32 [facility] Comment on above: Performed By: #### 7 845157, 03968137, 0633618132, [id number] #### [facility] (DEFAULT) [address] [place] [address] 08420 Creatinine [Mass/Vol] 0.59 mg/dL Low 0.60-1.30 [facility] Comment on above: Performed By: #### 7 518087, 97157306, 4367990412, [id number] #### [facility] (DEFAULT) [address] [place] [address] 26391 Globulin (S) [Mass/Vol] 3.5 g/dL Normal 1.5-4.3 [facility] Comment on above: Performed By: #### 7 715640, 98007946, 8017224668, [id number] #### [facility] (DEFAULT) [address] [place] [address] 26091 Glucose [Mass/Vol] 129.0 mg/dL High 74.0-118.0 [facility] Comment on above: Performed By: #### 7 501885, 57427832, 0642750417, [id number] #### [facility] (DEFAULT) [address] [place] [address] 18601 Osmolality 277 mOsm/L Invalid Interpretation Code [facility] Comment on above: Performed By: #### 7 938421, 08359217, [id number], [id number] #### [facility] (DEFAULT) [address] [place] [address] 20426 Potassium [Moles/Vol] 4.0 mmol/L Normal 3.6-5.1 [facility] Comment on above: Performed By: #### 7 775689, 37266835, 0732266363, [id number] #### [facility] (DEFAULT) [address] [place] [address] 35456 Protein [Mass/Vol] 7.4 g/dL Normal 6.5-8.1 [facility] Comment on above: Performed By: #### 7 611116, 75592008, 0863113403, [id number] #### [facility] (DEFAULT) [address] [place] [address] 85247 Sodium [Moles/Vol] 138.0 mmol/L Normal 136.0-144.0 [facility] Comment on above: Performed By: #### 7 629085, 60064804, 9868089632, [id number] #### [facility] (DEFAULT) [address] [place] [address] 05789 Urea nitrogen [Mass/Vol] 12 mg/dL Normal 8-26 [facility] Comment on above: Performed By: #### 7 102971, 33288417, [id number], [id number] #### [facility] (DEFAULT) [address] [place] [address] Urea nitrogen/Creatinine [Mass ratio] 20.0 mg/mg High 4.6-16.2 [facility] Comment on above: Performed By: #### 7 297166, 67312345, 5464634927, [id number] #### [facility] (DEFAULT) [address] [place] [address] Coding Summaryon 02-08-2022 Coding Summary HTMLBase 64 LknmrbowRFb8uKf+PGhl YWQ+SF7SJFZkM74caKEv hI0BE1wUFM9SFJNVRYEB CO5ZRC1jvXZ2SXgcI5Qk biAv PomnxRHfPX98CEi5TSO8 mForPXobjF5xmYCuG2r4 DdWxDM39qT74FEivJBCp OiQ8UzLouzijmMTu E0piJoIyuNYvPzt+PHRh YmxlIHdpZHRoPScxMDAl TiVxaDinAM8mMe7hDUAe LWNvbGxhcHNlOiBj y3ajPTQeCUudGT1znWcw H9RqcIN7DXVrc1h4Rf15 dHI+JADmCXH5aTgaNYmt x866HlPhc1biLZM0 fICaWMyaYFU8H18zk7M6 CCSwSKJaOXW3aSB7lH2h oMskygicS0HkdMDuRmE2 OZX7iUMutD3ymIqu yetakG1fCgv+A41QVM0X FAOJJF3QQjr6E6MjXmuz dHI+XB49ZHDyBH38pDHg tHLax0fflJb7JfMz RZHcTLI6eGexTJhqi9Fj BQLfZ78giGKar1R5NROq jKioyUZcRhOkxNG6iR9a JDalhtldr5xqxgpg Qptem2gknh56nO30H21y CJdnRJTsWGR1JEJyPLXl aSdtor8fcU2iWo2+IDxj v0hxv5hmwOv2SnPq KIEftfQucGbiNPY0s5Mq Rg94B9QajIzpu3OzSgk4 lu10eRMwa5H4bDQ7XFhv MZWuqW6xKUxaPsK8 BYYzVtQjcH78oNJuFOtx Ml1drKbrrJyqKO1vMVNh kdspAAQdpY2mZGKyvJTd rPxjHH1dJDJwyacj y983CqHdEPN5FDKsdWMi M7FpkL9jGgJeHCBkGPYx B5JduONcKShtG683AUum VuD4VQYcjkPrY9Ws MVCpuPocAuW2c1B3Ou2S y8FccilaZJH2XKseCCX8 RwDxKxQyKkA0X3MjKkd2 VQYzbQwzLX8hU7Ac QYStuyzkizageIM8XUGl ENVccC54qJYfPLhqTb9r k6X2z797MJBlDBLdfZ39 Qv0cxMtvCVPcsBNM yF6jzigfg1nbgrfcFnAk MUVyWGh0VZi6SRUitLxm IxGgFIL6ApT3HIL9jKEq cV4zsQtlbkulrY8s Oyc+U91egU0yRIG5BJC3 gfymFUOrfdRjDK75OH17 H3RjOzkexVJljUZ+PGRp nnTelGuwRH8tStAd p9gmt0VtWCtiP1ChFKIk HAugJho9VDTvCSO3cFN0 eH5oTCPmRCath9X4gGO5 B9EucaFdep8cu7wk NBEhIPzgA34mzDQyu7E4 OJJgcAS7DBGshKmlIeSh mS08Pvc+UPZjkIjlo4Qd Sjfsk0ccx8dsgIl9 IjMwJSIgdmFsaWduPSJ0 v9NhDz24K05dRVamHELl KQDiEYIjLENjiFftor6i dB2oSq9+PGNvbCB3 yAG3aX5cXEYwZiR2MArm J409KbAcsWCuBgdoo6dd f6cphJh0SwRyKLYfbiVc fDtjKUY9r5PwJf16 A79gKGbtXWUuENEtIXSa RFNsdNapcf8ylK3eZp6+ TZ5tx6bcha85wF30hZJ+ YAIaRFM0mTglPYqo NUHisM5dUXctQpJ5DZMh MiDvjV88aJCaOUmsKb8f kRoeqKugVI7lTOLznfod d211YrMiw7hgJAVp zVEfMVshPSI1P65vc7T1 XAYrBOLfBVH1iVF9eX4y bGlnbjogbGVmdDsgdmVy sVgiUSelIEqsP053 IHRvcDsnPlBhdGllbnQg PeUwYWh1B4PlScl1AKMe uZppIF6yzELxBBqjTl9z eDlqxJtsKF4kAMEm volqt889UmErt2btADNi uGEgACtvKNE8Q11vy9A4 QKMlTGAuTCC6wJL9jO1b bGlnbjogbGVmdDsg sxUttDjvLTwyYVqoJ995 IHRvcDsnPkJpcnRoIERh fEZ7AD40NG85pJIzn1R4 bPX4H0YaDVPkkwwe ujvkyCD2RGRyLRKijJ74 Jg9obPmuKj9qZSTsMRO3 PQSraERjR0UqaI4xHlNl MHEuBVKfF4CkbSMi UKkkZ151HUdbUgB7PTMw drXgE2ImUMDlqEomYoR5 p1C3Oy0WP6C6KQ92SY74 cEElv2J4mIN0X0Gp ZXAflpbgzbufnKH4SZNb RPYlxT84Ye6kbIomIf5r OKCbQBJ5OHLsbOTaR3Qg kJ0yYgOyWUSeRURl O3BuyEExHDsmO906QIjx BqN4JETayyNkR0AqMFRg bLokXbF2g6M8Bg1KWIp2 UX74LQ89oPOoo3B4 uAC8Q6QqAKDkxkrsyunz aYD0PYKzGFDrwK89Lt0f rNleFb2qAIKiSBC8EUFr oDDfD3VysF9jIxTo BHJyQAYhM8DeiYMxELyf Q845BLfvTyP3CPZytuVe S0LqMDAzgXucHlE2a0H1 Cn2NZFMxLF13OTA3 iIM5HM65YM19H2EhDmdq dGFibGU+PHRhYmxlIHdp ZHRoPScxMDAlJyBzdHls OY6zBz3pZJLhIVLv iRpnzMCzBcDna5bdXTLj JZfxJY6ybXlxZ1IeiGG1 IVLaf0e3Zk80U65uR8Mj dXA+ILGziCI9eKW3 iJ6uZsNbLbX6IGmbW043 TnAgcDHzKeleo5yhh0qr tHk3ZrR8THViiiLquZft FMO4l6FyCr98E69l IHdpZHRoPSIxNSUiIHZh pVymqp6moZ6pDu3+PGNv pLU5jZM8pW7dLyThKzK6 VRhyM376EmOwfVZj Lgqtu8tfp9ummHx9JiPj AAZsonHqvTakVUY2y3Ll Bu48E4MslYkdz7RvUtc8 mx60oUWjm4Q0sMY1 Y9RvIPNiesneoYTzpGcn FG8oJEYycpckHAUkyN8h KGNjU9q1MmPgAzX0KRsd O6JaolX4PLEqlYPe EWciOTH9B50wg9I8AZTo TICqLGX7zAA0zD3ehSwh bjogbGVmdDsgdmVydGlj HKfrEVnmY660UGFq hMsiEFZdaU1lVHPkwBSp hLfdGO5qHYPbajbvFjLD I7CREJWHCQXWWAPmJVaj dGQ+NCRvWOC8sGfy BCjpAKVjnD7qNLBdH4y9 BaAaYfD8TCzuY7WjNDEh nqcfMw34qH5sSqAsAvY1 JKzmX4GbveB1PGPa zBOrDXhgNGO3W63lo5C2 YTLyWDCmDPD8uPB0rN7y bGlnbjogbGVmdDsgdmVy iOgsPJonCSrnQ097 EYPapZsiAoMgQyE7TyX1 Amu8A7NzXux6FQLmsLkl VL7duMYbLLdlHe0zvXdt pKvlTZ6fUNOsmbhb RMYpqH1kUSIaiUZttPeg FD6tPOHmbmtbc820ExEi NQF3CJXudSXrG3YejI6w AkPeDEGqNRHeD4Us mGBmFUvdL781MJypWtX7 FMAsxmOiX0KaLCRpqPbp OnB3b5G7Mk31JeYYDAHw czwvdGQ+PHRkIHN0 yYinAQmuAKVmdY8kORWe D2z0HwIdWqH7RAawM6Vf DZNknsmbCt28bC0oGiIt OvQ8XJdjN3AtquL4 XBUdnAFyMIegNGL4V73z q7I0ZQXhZMJcYIW9mXI2 nT3yoYqblrslqZZtyDkr dmVydGljYWwtYWxp P690KGJfrVhzOqHMFFCI RTwvdGQ+HXAeJJY0gNkt QYiySFXzjD5zUYHlS9f1 SmEyBfY3HNraK3Jj UAUfwbowAl86jB0aIoXv DuM8HHtgG6RcfpF6OIWy xLNwVOwlEAP7E13bi7W4 HSYzLILhYSS6vXG9 qW1ikUtdchwtvURddWit xaLuxXkbSErhJFtuD907 OTBdbMkeOb6YYN28VG52 C6LjVpbmmDDkiNF+ PHRhYmxlIHdpZHRoPScx BGZqOfYwaVihWG7iPd3k ZGVyLWNvbGxhcHNlOiBj m9ymXKGoSHwxXC3e dJzwU9MroCU9LHXuw7e5 Rv98Q61pJ3ObmXC+PGNv yLK1rLV0oV9lYpJoAgJ2 RIouC299LwBytQNf Zwgrs7nhz7qadBf2FpHi SEHwkbPsoCsgLCG2b7Fq Rx58G71bZLuzWSGzFSIu KJZmCDJbbMefst0b aF3tTl0+TJKruDW6oJU7 bX4zBfHnEnP0ARcwW828 LjXowWFzMnjrN71mA3Rq dXA+RHOrZla4CZFt kIlcHB9mrEZgZDyvVy5g XKS9GhKfVkRcMQkaG7Rp HHVolkbdwwzqkQX0FKDt RAQtvL97Bw2hpVmj En2nRZKsJZH5SPAtkLSk N1BncL6aGjRgETExGQHl D1BrkAAdRQgnM732JZpx JqI9UIDpulNsE4Oc XSAwtGhbEdY5z6E8Qy4M wFhijMAeGB7lXfMbTMe9 D9KtQof7IRPmmRtjHI6w mERfZLtxZm7qlCjg zTjeRP8cXNTzbbehj179 VeQhn7nvSCMbsUSmDFpd MJD1I36pj0G3NUDpJGXa XYU1rVD3jC3akVml bjogbGVmdDsgdmVydGlj ZPocYVjqJ371AYHviFzj SbQPBnx9Q0RcTfl6ROWt eEhhFL1bcSZzFLhk Bl7ulYlxoTbdWL8oITBl amkdr145MnPdt3ajFVFn aYMxLHcwEAV4F97ya1B7 OFKaYOJtMPQ3sHQ6 bO5syZfsixpttNHsgEqr dpTcmXrhZOymCCfjS699 VSWvhHquLh4UQbb7B5El Xtu6YELknLozUW1p zAScXWphHg3tpGadxIrq LF1oTTKwreqlo025RePh t9ajTHBohFKdADpnMLQ7 I79hy3J7NRLwZFZw HLW6uVT0bR7qvDxtlnhe bGVmdDsgdmVydGljYWwt FMatK372WSWyiBjgFaKr eWVyOjwvdGQ+PC90 dk80L2WaQehgZrw0QTZq SPF9rCP2yJ0iXMRyZDqk w5B1xDR3L7VgapAyvo5n h7poGJNnNAlpZ94q bGF (more content not included)... Normal [facility] Extra SSTon 02-08-2022 Tube Collected Yes Invalid Interpretation Code [facility] Comment on above: Performed By: #### 1 [id number] ####[facility] (DEFAULT)[address] [place] [address] Lipid Panel Standardon 02-08 Cholesterol [Mass/Vol] 200.0 mg/dL Normal 66.0-200.0 [facility] Comment on above: Result Comment: Abril rable - Less than 200 mg/dL Borderline high risk - 200-239 mg/dL High risk - 240 mg/dL and over. Performed By: #### 7 [id number], [id number] #### [facility] (DEFAULT) [address] [place] [address]18 Cholesterol in HDL [Mass/Vol] 40 mg/dL Normal 40-71 [facility] Comment on above: Result Comment: High risk - <40 mg/dL. Performed By: #### 7 [id number] #### [facility] (DEFAULT) [address] [place] [address] 22081 Cholesterol in LDL [Mass/Vol] 112 mg/dL High 1-100 [facility] Comment on above: Result Comment: Opti mal - Less than 100 mg/dL Borderline high risk - 130-159 mg/dL High risk - 160-189 mg/dL. Performed By: #### 7 [id number], [id number] #### [facility] (DEFAULT) [address] [place] [address] 78190 Cholesterol.total/C holesterol in HDL [Mass ratio] 5.0 {ratio} High 0.0-4.5 [facility] Comment on above: Performed By: #### 7 [id number], [id number] #### [facility] (DEFAULT) [address] [place] [address] 48294 Triglyceride [Mass/Vol] 242.0 mg/dL High 0.0-150.0 [facility] Comment on above: Performed By: #### 7 [id number], [id number] #### [facility] (DEFAULT) [address] [place] [address] 86141 VLDL. 48 mg/dL High 5-40 [facility] Comment on above: Performed By: #### 7 [id number], [id number] #### [facility] (DEFAULT) [address] [place] [address]26 Miscellaneous Testing LCon 0 02-08-2022 Test Code LC 958437 Invalid Interpretation Code [facility] Comment on above: Order Comment: test code 032580 lav room temp andsst refrigerate Performed By: #### 1 [id number] ####[facility] (DEFAULT)[address] [place] [address] Test Name LC a1-Antitrypsin Deficiency Invalid Interpretation Code [facility] Comment on above: Order Comment: test code 071973 lav room temp andsst refrigerate Performed By: #### 1 [id number] ####[facility] (DEFAULT)[address] [place] [address] 33367 U Micro Albumin 1on 02-09-20 22 U Micro Albumin <3.0 Normal 0.0-18.9 [facility] Comment on above: Performed By: #### 3 [id number] #### [facility] (DEFAULT) [address] [place] [address] 12339 XR Chest 2 Viewson 2 XR Chest [...] Dictated DT/TM: 02/08/22 12:58 Signed (Electronic Signature): Jeyson Butterfield MD 02/08/22 4:02 pm Technologist: MELANIE [facility] C Urineon 02-05-2022 C Urine No growth at 2 days. Normal [facility] Comment on above: Performed By: #### 6 [id number] ####[facility] (DEFAULT)[address] [place] [address] 32342 Outside Recordson 12-09-2021 Outside Records [id number] 4#1.00OTGTIFF [facility] Consent Formson 07-21-2021 Consent Forms [id number] #1.00OTGTIFF [facility] Progress Note - Nurseon Progress Note - Nurse Antigen test ordered, test resulted negative, patient informed of negative result. [Electronically Signed on: 07/14/2021 09:35 EST] Sallie Fernandez RN [Verified on: 07/14/2021 09:35 EST] Sallie Fernandez RN [facility] Consent Formson 04-07-2021 Consent Forms [id number] #1.00OTGTIFF [facility] .QC Respiratory Panel 2.1 (B ioFire)on 04-05-2021 Internal Control-Resp Panel 2.1(BioFire) [facility] Comment on above: Order Comment: Order ed by Estrellita. [[id number]] Performed By: #### [id number] #### [facility] (DEFAULT) [address] [place] [address] Encounters Encounter Date Encounter Type Care Provider Facility Start: 08-31-2023 End: 09-01-2023 ambulatory [facility] Facility:[facility] Start: 08-25-2023 End: 11-24-2023 ambulatory Harsh Salvador Facility:[facility] Start: 08-25-2023 End: 08-26-2023 ambulatory [facility] Facility:[facility] Start: 08-14-2023 Orders Only Shaikh Casey EDDY Work Phone: [facility] Comment on above: Type 2 diabetes aneta itus without complication, without long- term current use of insulin ([facility]) (Primary Dx) Start: 07-20-2023 End: 07-20-2023 ambulatory SHAIKH CASEY Not Available Start: 07-20-2023 Patient encounter procedure chico Gonzalez MD Work Phone: [facility] Start: 05-26-2023 End: 05-27-2023 ambulatory Maryuri VINCENT Facility:[facility] Start: 11-18-2022 ambulatory Yoandy CASEY Chopra y:H1 Plan of Treatment Date Care Activity Detail Author Start: 07-20-2026 Screening for malign ant neoplasm of colon [facility] Start: 04-09-2025 Glaucoma screening Diabetes: R etinopathy Screening [facility] Start: 10-26-2023 End: 10-26-2023 Patient encounter procedure 10/26/2023 1:00 PM EDT Office Visit [facility] [address] [place] [id number] Shaikh Gonzalez MD [address] [place] [id number] [facility] Start: 03-10-2023 Influenza vaccination Influenza Vacc ine (#1) [facility] Start: 03-18-2018 Hemoglobin A1c measurement Diabetes: Hemoglobin A1C [facility] Start: 2008 Screening for malign ant neoplasm of breast Mammogram [facility] Start: 1998 Screening for malign ant neoplasm of cervix [facility] Start: 1989 Screening for malign ant neoplasm of cervix Pap Smear [facility] Start: 1987 Urine screening for protein Diabetes: Urine Protein Screening [facility] Start: 1968 Screening for malign ant neoplasm of colon [facility] Immunizations Immunization Date Immunization Notes Care Provider [facility] 06-09-2021 Moderna SARS-CoV-2 Vaccination Shaikh Casey EDDY Work Phone: [facility] 05-03-2021 influenza, injectabl e, quadrivalent, contains preservative Shaikh Casey EDDY Work Phone: [facility] 05-03-2021 influenza, injectabl e, quadrivalent, preservative free Shaikh Casey EDDY Work Phone: [facility] 05-03-2021 influenza virus vacc ine, unspecified formulation Shaikh Casey EDDY Work Phone: [facility] 05-07-2020 influenza, injectabl e, quadrivalent, contains preservative Shaikh Casey EDDY Work Phone: [facility] 05-07-2020 influenza, injectabl e, quadrivalent, preservative free Shaikh Casey EDDY Work Phone: [facility] 12-10-2001 measles, mumps and rubella virus vaccine Shaikh Casey EDDY Work Phone: [facility] Payers Date Payer Category Payer Unknown BCBS BCBS [id number] 2023-Present [phone] [address] [place] [address] [id number] 1970 Unknown [id number] 1968 Unknown [id number] 1959 Unknown [id number] Social History Date Type Detail Facility Start: 07-18-2023 Tobacco smoking stat [facility] Ex-smoker [facility] End: 07-10-2006 History of tobacco use Current smoker [facility] End: 07-10-2006 History of tobacco use Cigarette Smoker [facility] Start: 07-20-2023 Alcohol intake Lifetime non-d lyric (finding) [facility] Start: 07-20-2023 History of Social function [facility] Start: 07-20-2023 Tobacco use panel [facility] Start: 06-26-2023 Alcohol Comment caffeine: more than 4 cups per day ; soda [facility] Start: 1970 Sex Assigned At Not on file [facility] Medical Equipment Procedure Code Equipment Code Equipment Origin al Text Equipment Identifier Dates 1 each by In Vit ro route in the morning. [id number] Start: 07-20-2023 End: 10-18-2023 1 each in the morning. 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 Subject: Medication Management Due: August 04, 2021 12:07:16 AM POWERHOUSE TENDER On Hold Pending Signature Drug: semaglutide (Rybelsus [...] From: Vaishali Perez To: [facility] Sent: 08/03/2021 11:46:15 EST Subject: Medication Management Submitted: Complete:semaglutide (Rybelsus 7 mg oral tablet) Signed by Vaishali Perez 08/03/2021 11:46:00 EST Approved semaglutide (RYBELSUS 7MG) TAKE 1 TABLET BY MOUTH ONCE DAILY Qty: 30 tab(s) Days Supply: 60 Refills: 0 Substitutions Allowed Route To Pharmacy - [facility] Note from Pharmacy: Patient is requesting refills, Thank you 08/03/2021 11:10:51 AM From: Vaishali Perez To: [facility] ([facility]); Sent: 08/03/2021 11:47:28 EST Subject: RE: Medication Management medicine sent to pharmacy - please re-schedule diabetes check-up in next 1-2 weeks From: Colette Angelo LPN ([facility] ([facility])) To: Vaughn Smith; Sent: 08/03/2021 11:53:02 EST Subject: FW: Medication Management Can you please schedule?? From: Vaughn Smith To: [facility] ([facility]); Sent: 08/03/2021 13:09:50 EST Subject: RE: Medication Management Pt is scheduled MondayAugust 11 at 4pm! [facility] Medication management note 07-05-2021 Note Date & Type Note Facility 07-05-2021 Note - From: Colette Angelo LPN ([facility] ([facility])) To: Vaishali Perez; Sent: 07/05/2021 08:39:56 EST Subject: FW: Medication Management Due Date/Time: 07/06/2021 08:25:00 EST From: [facility] To: Vaishali Perez SKI PATROL OFFICER Sent: July 05, 2021 7:25:23 AM POWERHOUSE TENDER Subject: Medication Management Due: July 06, 2021 12:08:22 AM POWERHOUSE TENDER On Hold Pending Signature Drug: semaglutide (Rybelsus [...] From: Vaishali Perez To: [facility] Sent: 07/05/2021 09:03:52 EST Subject: FW: [...] Route To Pharmacy - [facility] Note from Pharmacy: Patient is requesting refills, Thank you 07/05/2021 8:19:07 AM Approved esomeprazole (ESOMEPRA MAG 20MG ) TAKE 1 CAPSULE BY MOUTH ONCE DAILY Qty: 90 cap(s) Days Supply: 90 Refills: 0 Substitutions Allowed Route To Pharmacy - [facility] Note from Pharmacy: Patient is requesting refills, thank you 07/05/2021 8:18:49 AM From: Vaishali Perez To: [facility] ([facility]); Sent: 07/05/2021 09:06:10 EST Subject: RE: Medication Management These meds were filled today - need to schedule diabetes check-up this month [facility] Medication management note 05-12-2021 Note Date & Type Note Facility 05-12-2021 Note - From: Colette Angelo LPN ([facility] ([facility])) To: Vaishali Perez; Sent: 05/12/2021 13:13:42 EDT Subject: FW: Medication Management Due Date/Time: 05/13/2021 12:56:00 EDT From: [facility] To: Vaishali Perez SKI PATROL OFFICER Sent: May 12, 2021 11:56:35 AM CDT [...] From: Vaishali Perez To: [facility] Sent: 05/12/2021 13:16:51 EDT Subject: FW: [...] Route To Pharmacy - [facility] Note from Pharmacy: pt requesting refills 05/12/2021 12:54:46 PM From: Vaishali Perez To: [facility] ([facility]); Sent: 05/12/2021 13:17:03 EDT Subject: RE: Medication Management medicine re-filled [facility] Medication management note 04-14-2021 Note Date & Type Note Facility 04-14-2021 Note - From: Colette Angelo LPN ([facility] ([facility])) To: Vaishali Perez; Sent: 04/13/2021 12:00:13 EDT Subject: FW: Medication Management Due Date/Time: 04/14/2021 11:50:00 EDT From: [facility] To: Vaishali Perez CNP Sent: April [...] From: Vaishali Perez To: [facility] Sent: 04/14/2021 08:21:26 EDT Subject: FW: Medication Management Submitted: Complete:valACYclovir (Valtrex 1 g oral tablet) Signed by Vaishali Perez 04/14/2021 08:21:00 EDT Approved valACYclovir (VALACYCLOVIR 1GM) TAKE 1 TABLET BY MOUTH TWICE DAILY FOR 24 HOURS FOR RECURRENT COLD SORE Qty: 4 tab(s) Days Supply: 2 Refills: 0 Substitutions Allowed Route To Pharmacy - [facility] Note from Pharmacy: Patient is requesting refills, Thank you 04/13/2021 11:49:23 AM Approved valACYclovir (VALACYCLOVIR 1GM) TAKE 1 TABLET BY MOUTH TWICE DAILY FOR 24 HOURS FOR RECURRENT COLD SORE Qty: 4 tab(s) Days Supply: 2 Refills: 0 Substitutions Allowed Route To Pharmacy - [facility] Note from Pharmacy: Patient is requesting refills, Thank you 04/13/2021 11:49:23 AM [facility] Medication management note 04-13-2021 Note Date & Type Note Facility 04-13-2021 Note - From: Colette Angelo LPN ([facility] To: [facility] ([facility]); Sent: 04/13/2021 08:08:18 EDT Subject: FW: Medication Management Due Date/Time: 04/13/2021 14:59:00 EDT From: [facility] To: Vaishali Perez CNP Sent: April [...] From: Lacey Grossman To: [facility] Sent: 04/13/2021 08:15:14 EDT Subject: FW: [...] Lacey Grossman 04/13 (more content not included)... [facility] Note 04-05-2021 Note Date & Type Note Facility 04-05-2021 Note Nasal swab performed without complication. Patient tolerated well. Education given. Patient verbalized understanding. [Electronically Signed on: 04/05/2021 15:02 EDT] [facility] [place] [Verified on: 04/05/2021 15:02 EDT] [facility] Evaluation note Note Date & Type Note Facility Evaluation note Diagnosis Type 2 diabetes mellitus without complication, without long-term current use of insulin ([facility])- Primary documented in this encounter [facility] Summary Purpose Family History No Family History Records FoundNo Family History Records FoundNo Family History Records FoundNo Family History Records Found Advance Directives No Advanced Directives Records FoundNo Advanced Directives Records FoundNo Advanced Directives Records FoundNo Advanced Directives Records Found Additional Source Comments INFORMATION SOURCE (unrecogn ized section and content) DATE CREATED AUTHOR 03/19/2022 [facility] DATE CREATED AUTHOR AUTHOR'S ORGANIZ ATION 11/18/2022 [facility] DATE CREATED AUTHOR AUTHOR'S ORGANIZ ATION [facility]/21/2023 [facility] DATE CREATED AUTHOR AUTHOR'S ORGANIZ ATION 11/26/2023 Nain Cline [facility] Care Teams (unrecognized sec tion and content) 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 [employer] provides no warranty or guarantee of the accuracy or completeness of information in this document.
[2023-12-11 07:53] LABS: Basophils Absolute Auto 0.1 10^3/uL (0.0-0.1); Basophils Percent Auto 0.8 % (0.2-2.0); Eosinophils Absolute Auto 0.2 10^3/uL (0.0-0.7); Eosinophils Percent Auto 2.7 % (0.9-7.0); Hematocrit 37.5 % (36.0-48.0); Hemoglobin 12.7 g/dL (12.0-16.0); Immature Granulocytes Abs Auto 0.01 10^3/uL (0.00-0.03); Immature Granulocytes Pct Auto 0.1 % (0.0-0.5); Lymphocytes Absolute Auto 3.2 10^3/uL (1.2-3.8); Mean Corpuscular HGB Conc 33.9 g/dL (29.9-35.2); Mean Corpuscular Hemoglobin 29.6 pg (26.7-34.0); Mean Corpuscular Volume 87.4 fL (81.0-99.0); Mean Platelet Volume 9.2 fL (9.5-13.5); Monocytes Absolute Auto 0.6 10^3/uL (0.3-0.8); Monocytes Percent Auto 7.5 % (1.7-12.0); Neutrophils Absolute Auto 3.9 10^3/uL (1.4-6.5); Neutrophils Percent Auto 48.9 % (43.0-75.0); Red Blood Count 4.29 10^6/uL (4.20-5.40); Red Cell Distribution Width 12.4 % (11.0-15.0); White Blood Count 7.9 10^3/uL (4.0-11.0)
[2023-12-11 08:15] LABS: Platelet Count 142 10^3/uL (150-450)
[2023-12-11 08:30] LABS: Alanine Aminotransferase 30 U/L (14-59); Albumin Globulin Ratio 0.8; Albumin Level 3.3 g/dL (3.4-5.0); Alkaline Phosphatase 108 U/L (46-116); Anion Gap 11.9; Aspartate Amino Transferase 25 U/L (15-37); Bilirubin Total 0.5 mg/dL (0.2-1.0); Calcium 8.7 mg/dL (8.5-10.1); Carbon Dioxide 27.3 mmol/L (21.0-32.0); Chloride 103 mmol/L (98-107); Chol HDL Ratio 4.2; Cholesterol 176 mg/dL (<=200); Estimated Average Glucose 134 mg/dL; Estimated GFR (African America >60 (>=60); Estimated GFR (Non-African Ame >60 (>=60); Glucose 174 mg/dL (74-106); Glycohemoglobin A1C 6.3 % (4.5-6.2); HDL Cholesterol 42 mg/dL (40-60); Potassium 4.2 mmol/L (3.5-5.1); Sodium 138 mmol/L (136-145); Total Protein 7.3 g/dL (6.4-8.2); Triglycerides 234 mg/dL (<=150); VLDL CHOLESTEROL 46.8 mg/dL
== END 2023-12-11 07:42 | disposition home or self-care (01) ==
LOC: LAB 07:41
PROVIDERS: PCP Internal Medicine; Visit Provider Internal Medicine
DX: E78.49 Other hyperlipidemia (principal); I10 Essential (primary) hypertension; E11.9 Type 2 diabetes mellitus without complications
CPT/HCPCS: 36415; 80053; 80061; 83036; 85025

== ENCOUNTER 2025-06-16 07:00 | Outpatient (OUT) | payer OTHER, SELFPAY ==
--- OUTSIDE RECORDS SUMMARY | 2012-03-22 09:10 | XMS_ITS | Continuity of Care Document ---
Author Organization [facility] Address [address] [place] [address] Phone Care Team Providers Care Supervisor Grower Name Role Phone Everette Robles Unavailable Unavailable Procedures Procedure Date TB INTRADERMAL TEST TB INTRADERMAL TEST Advance Directives Directive Yes / No Effective Date File Name Resuscitation Not Answered N/A N/A Life Support Not Answered N/A N/A Intubation Not Answered N/A N/A Antibiotics Not Answered N/A N/A IV Fluid Support Not Answered N/A N/A Tube Feed Not Answered N/A N/A Other Directive N/A N/A WARNING:The information contained in this section is historical and is provided for information only and does not constitute a legal document or any assurance that the information is still accurate. Please verify the information with the piedra of the legal document before using it for clinical purposes. Encounters Encounter Description Practice Location Reason(s) For Visit Diagnoses Date Provider Providers Copied on Encounter [facility], [address], [place], [id number], [place] tel:[phone] [facility] No Information Cristhian Mcneal. [address], [place], [id number], [place]. tel:[phone] [facility], [address], [place], [id number], [place] tel:[phone] [facility] Screening examination for pulmonary tuberculosis Cristhian Mcneal. [address], [place], [id number], [place]. tel:[phone] Family History Family Member Type Diagnosis Age At Onset No Information Payers Payer name Insurance type Covered alliance party ID Authoriza tion(s) No Information Social History Type Description Quantity Date Captured Comments Alcohol Use Details Unknown Caffeine Use Details Unknown Tobacco Use Status No Information Smoking Status No Information Sex Female Chief Complaint And Reason For Visit No Information Reason For Referral Reason For Referral No Information History Of Present Illness Encounter Date Complaint History Of Prese nt Illness No Information Functional Status Date Functional Assessmen t No Information Instructions Date Instruction Additional Infor mation No Information Assessments Type Assessment Date No Information Patient Care Teams Name Effective Dates (start - stop) Status Members No Information
--- OUTSIDE RECORDS SUMMARY | 2025-06-17 07:18 | XMS_ITS | CCD ---
Author Organization [facility] Care Team Providers Care Wash Box Operator Name Role Phone SHAIKH Marko GONZALEZ Attending Unavailable SHAIKH Marko GONZALEZ Admitting Unavailable Shaikh Gonzalez MD Primary Care Provider Maryuri VINCENT Attending Unavailable Maryuri VINCENT Attending Unavailable Maryuri VINCENT Attending Unavailable Harsh Salvador Attending Unavailable Arley Arthur MD Primary Care Provider Carline VISUAL SUPERVISOR, Lynnette Unavailable [phone] Carline VISUAL SUPERVISOR, Lynnette Unavailable Vaishali Zapata NP Primary Care Provider VAISHALI ZAPATA Attending Unavailable VAISHALI ZAPATA Referring Unavailable VAISHALI ZAPATA Attending Unavailable NO FAMILY, PHYSICIAN Primary Care Provider Unava ilable Benny ART-Vaishali Robin Attending Provider Allergies Allergy ClassificationReported Allergen(s)Allergy TypeDate of OnsetReaction(s) Facility (11 sources)Sulfamethoxazole / TrimethoprimDrug Vpfvtse27-57-8137[facility] (11 sources)Amoxicillin-Pot ClavulanatePropensity to adverse qhueunuba21-43-0575 [facility] (1 source)No Known Medication Allergies; Translations: [No Known Medication Allergies]Propensity to adverse reactions (disorder)[facility] (1 source)AmoxicillinDrug Jihlkmp98-86-7748Zeqvhdw ReactionTog[facility] (1 source)ClavulanateDrug Suqmpiz32-47-6090Gfvqtxq ReactionTogus Va Medical Center (1 source)Sulfonamides (Antibiotic)Allergy to nucdoksmy96-08-2681Rapiqyp [facility] Medications Current Medications MedicationDrug Class(es)DatesSig (Normalized)Sig (Original)atorvastatin 20 mg oral tablet (15 sources)HMG-CoA Reductase InhibitorStart: 10-10-2024 End: 35-71-9947hllx 1 tablet by mouth once daily in the eveningAtorvastatin 20 mg tablet Active 20 MG PO Every evening April 18, 2025 12:00am Complies with drug therapyStart: 06-24-2023 End: 76-64-1595bfkm 1 tablet by mouth once dailyatorvastatin (Lipitor) 20 MG tablet Indications: Hyperlipidemia, unspecified hyperlipidemia type (CMS/HCC) Take 1 tablet (20 mg) by mouth Daily 90 tablet 1 12/11/2023 Activebiotin 5 mg oral capsule (11 sources)Start: 97-03-4002dacr 1 capsule by mouth once dailyBiotin 5 mg capsule Active 5 MG PO Daily April 18, 2025 12:00am Complies with drug therapytake 3 tablets by mouth in the morningbiotin 5 MG capsule Take 3 tablets by mouth in the morning. ActiveBlood Glucose Monitoring Suppl (True Metrix Air Glucose Meter) w/Device kit (7 sources)Start: 10-30-2024 End: 90-10-4515Qluwt Glucose Monitoring Suppl (True Metrix Air Glucose Meter) w/Device kit Indications: Type 2 diabetes mellitus without complication, without long-term current use of insulin ([facility]) 1 each Daily 1 kit 10/30/2024 10/30/2025 ActiveStart: 10-30-2024 End: 28-30-4340Tgpoy Glucose Monitoring Suppl (True Metrix Air Glucose Meter) w/Device kit Indications: Type 2 diabetes mellitus without complication, without long-term current use of insulin 1 each Daily 1 kit 10/30/2024 10/30/2025 Active carvedilol 25 mg oral tablet (16 sources)alpha-Adrenergic Angelica, beta-Adrenergic BlockerStart: 07-10-2024 End: 93-96-4292dntu 1 tablet by mouth every twelve hours at mealtimeCarvedilol 25 mg tablet Active 25 MG PO Every 12 hours April 18, 2025 12:00am must administer with a meal/food Complies with drug therapyStart: 02-05-2024 End: 37-16-0000whnk 1 tablet by mouth in the morningcarvedilol (Coreg) 25 MG tablet Indications: Primary hypertension (CMS/HCC) Take 1 tablet (25 mg) by mouth in the morning and 1 tablet (25 mg) in the evening. Take with meals. 180 tablet 1 Discontinued (Reorder)take 1 tablet by mouth in the morningcarvedilol (Coreg) 25 MG tablet Take 25 mg by mouth in the morning and 25 mg in the evening. Take with meals. 0 Activecetirizine hydrochloride 10 mg oral tablet (14 sources)Histamine-1 Receptor AntagonistStart: 27-40-0955bxlu 1 tablet by mouth once daily as neededCetirizine 10 mg tablet Active 10 MG PO Daily as needed April 18, 2025 12:00am Complies with drug therapyStart: 11-06-2024 End: 04-52-6825zrrp 1 tablet by mouth once daily as needed for rhinitis cetirizine (ZyrTEC) 10 MG tablet Indications: Environmental and seasonal allergies Take 1 tablet (10 mg) by mouth Daily as needed for allergies or rhinitis 90 tablet 1 11/27/2024 02/25/2025 ActiveglipiZIDE er 5 mg 24 hr extended release oral tablet (15 sources)SulfonylureaStart: 74-67-0520paxl 1 tablet by mouth once daily Glipizide 5 mg tablet extended release 24hr Active 5 MG PO Daily April 18, 2025 12:00am Complies with drug therapyStart: 07-10-2024 End: 20-91-4579lvht 1 tablet by mouth once dailyglipiZIDE XL (Glucotrol XL) 5 MG 24 hr tablet Indications: Type 2 diabetes mellitus without complication, without long-term current use of insulin (HCC) Take 1 tablet (5 mg) by mouth Daily Do not crush, chew, or split. 90 tablet 1 11/27/2024 02/25/2025 ActiveStart: 01-18-2024 End: 27-99-9463fxoq 1 tablet by mouth once dailyglipiZIDE XL (Glucotrol XL) 5 MG 24 hr tablet Indications: Type 2 diabetes mellitus without complication, without long-term current use of insulin (CMS/HCC) Take 1 tablet (5 mg) by mouth Daily Do notcrush, chew, or split. 90 tablet 1 01/18/2024 07/08/2024 Discontinued (Reorder)24 hr metFORMIN hydrochloride 500 mg extended release oral tablet (12 sources)BiguanideStart: 67-37-8003pwnt 1 tablet by mouth once dailyMetformin 500 mg tablet extended release 24 hr Active 500 MG PO Daily April 18, 2025 12:00am Complies with drug therapyStart: 10-30-2024 End: 64-97-7531biev 1 tablet by mouth every twenty-four hours at mealtime metFORMIN XR (Glucophage-XR) 500 MG 24 hr tablet Indications: Type 2 diabetes mellitus without complication, without long-term current use of insulin (HCC) Take 1 tablet (500 mg) by mouth in the morning. Take with meals. Do not crush, chew, or split. 90 tablet 11/27/2024 02/25/2025 Activetake 1 tablet by mouth every twelve hoursmetFORMIN (Glucophage) 500 MG tablet Take 500 mg by mouth every 12 (twelve) hours 0 Activemontelukast 10 mg oral tablet (15 sources)Leukotriene Receptor AntagonistStart: 12-25-2023 End: 50-36-6256dwmm 1 tablet by mouth once daily at bedtimeMontelukast 10 mg tablet Active 10 MG PO Daily at bedtime April 18, 2025 12:00am Complies with drug therapytake 1 tablet by mouth once dailymontelukast (Singulair) 10 MG tablet Take 10 mg by mouth 1 (one) time each day 0 Activeomeprazole 20 mg delayed release oral capsule (15 sources)Proton Pump InhibitorStart: 12-11-2023 End: 15-09-8779xfqz 1 capsule by mouth once dailyOmeprazole 20 mg capsule,delayed release(DR/EC) Active 20 MG PO Daily April 18, 2025 12:00am Complies with drug therapyStart: 07-10-2023 End: 16-53-3656xtwn 1 capsule by mouth before mealtimeomeprazole (PriLOSEC) [address] capsule Indications: Gastroesophageal reflux disease without esophagitis Take 1 capsule (20 mg) by mouth in the morning. Take before meals. Do not crush or chew.. 90 capsule 0 07/10/2023 10/08/2023 Activesemaglutide 14 mg oral tablet (2 sources)Start: 04-10-2023 End: 59-41-8945ltcd 1 tablet by mouth in the morningsemaglutide (Rybelsus) 14 MG tablet Indications: Type 2 diabetes mellitus without complication, without long- term current use of insulin (CMS/HCC) Take 1 tablet (14 mg) by mouth in the morning. 90 tablet 1 08/14/2023 02/10/2024 ActiveTirzepatide (1 source)Start: 33-22-9885Uaifnipwpnt (Mounjaro) 7.5 MG/0.5ML solution auto-injector (1 source)Start: 02-19-2025 End: 92-81-0619Rzjjjzjaqgj (Mounjaro) 7.5 MG/0.5ML solution auto-injector Indications: Type 2 diabetes mellitus without complication, without long-term current use of insulin (HCC) Inject 7.5 mg under the skin every 7 (seven) days 6 mL 02/19/2025 05/14/2025 ActiveTirzepatide-Weight Management (Zepbound) 5 MG/0.5ML solution auto-injector (7 sources)Start: 02-17-2025 End: 05-86-2480Exarwcmvjaa-Weight Management (Zepbound) 5 MG/0.5ML solution auto-injector Indications: Type 2 diabetes mellitus without complication, without long-term current use of insulin (HCC) , Morbid (severe)obesity due to excess calories (CMS-HCC) Inject 5 mg under the skin every 7 (seven) days for 28 days 2 mL 2 02/17/2025 02/18/2025 Discontinued (Ineffective)Start: 02-17-2025 End: 95-21-5079Leuudxwhgzc-Weight Management (Zepbound) 5 MG/0.5ML solution auto-injector Indications: Type 2 diabetes mellitus without complication, without long-term current use of insulin (HCC) , Morbid (severe)obesity due to excess calories (CMS-HCC) Inject 5 mg under the skin every 7 (seven) days for 28 days 2 mL 2 02/17/2025 03/17/2025 ActiveStart: 11-27-2024 End: 55-00-0196Tinixjnwqpv-Weight Management (Zepbound) 5 MG/0.5ML solution auto-injector Indications: Type 2 diabetes mellitus without complication, without long-term current use of insulin , Morbid (severe) obesity due to excess calories (CMS/HCC) Inject 5 mg under the skin every 7 (seven) days for 28 days 2 mL2 11/27/2024 12/25/2024 ActiveStart: 11-27-2024 End: 59-46-0019Bxopaapoqgh-Weight Management (Zepbound) 5 MG/0.5ML solution auto-injector Indications: Morbid (severe) obesity due to excess calories (CMS/HCC) Inject 5 mg under the skin every 7 (seven) days for 28days 2 mL 2 11/27/2024 11/27/2024 Discontinued (Reorder) End: 52-11-0512Lbqpjzrcpfw-Weight Management (Zepbound) 5 MG/0.5ML solution auto-injector Inject 5 mg under the skin every 7 (seven) days 11/27/2024 Discontinued (Reorder)Tirzepatide-Weight Management (Zepbound) 7.5 MG/0.5ML solution auto-injector (5 sources)Start: 02-18-2025 End: 07-08-6332Wcrzxsqentv-Weight Management (Zepbound) 7.5 MG/0.5ML solution auto-injector Indications: Type 2 diabetes mellitus without complication, without long-term current use of insulin (HCC) , Morbid (severe) obesity due to excess calories (CMS-HCC) , JAYSON (obstructive sleep apnea) Inject 7.5 mg under the skin every 7 (seven) days 6 mL 1 02/18/2025 02/19/2025 Discontinued (Cost of medication)Start: 02-18-2025 End: 08-36-0926Veoqpylwnfc-Weight Management (Zepbound) 7.5 MG/0.5ML solution auto-injector Indications: Type 2 diabetes mellitus without complication, without long-term current use of insulin (HCC) , Morbid (severe) obesity due to excess calories (CMS-HCC) , JAYSON (obstructive sleep apnea) Inject 7.5 mg under the skin every 7 (seven) days 6 mL 1 02/18/2025 05/13/2025 Active End: 04-07-9665Zpvkesekeum-Weight Management (Zepbound) 7.5 MG/0.5ML solution auto-injector Inject 7.5 mg under the skin every 7 (seven) days 02/18/2025 Discontinued (Therapy completed) Completed/Discontinued Medications MedicationDrug Class(es)DatesSig (Normalized)Sig (Original)Tirzepatide-Weight Management (Zepbound) 2.5 MG/0.5ML solution auto-injector (2 sources)Start: 10-31-2024 End: 09-70-7169Nijndpyyojp-Weight Management (Zepbound) 2.5 MG/0.5ML solution auto-injector Indications: Morbid (severe) obesity due to excess calories (CMS/HCC) , Body mass index (BMI) 40.0-44.9, adult (CMS/HCC) ,Type 2 diabetes mellitus without complication, without long-term current use of insulin Inject 2.5 mg under the skin 1 (one) time per week for 28 days 2 mL 10/31/2024 11/27/2024 Discontinued (Therapycompleted)Start: 10-31-2024 End: 38-31-3028Etkndnlrnxa-Weight Management (Zepbound) 2.5 MG/0.5ML solution auto-injector Indications: Morbid (severe) obesity due to excess calories (CMS/HCC) , Body mass index (BMI) 40.0-44.9, adult (CMS/HCC) ,Type 2 diabetes mellitus without complication, without long-term current use of insulin Inject 2.5 mg under the skin 1 (one) time per week for 28 days 2 mL 10/31/2024 11/28/2024 ActivetraZODone hydrochloride 50 mg oral tablet (1 source)Serotonin Reuptake InhibitorStart: 04-02-2025 End: 76-26-4247sbus 1 tablet by mouth once daily at bedtimeTrazodone 50 mg tablet Discontinued 50 MG PO Daily at bedtime 30 April 02, 2025 12:00am May 06, 2025 3:21pm Insomnia Insomnia, unspecified Problems Active Problems Problem ClassificationProblemDateDocumented DateEpisodic/ChronicDiabetes mellitus without complication (20 sources)Type 2 diabetes mellitus without complication; Translations: [Type 2 diabetes mellitus without complications]Onset: 588208-53-6243Mnwcufi Disorders of lipid metabolism (20 sources)Hyperlipidemia; Translations: [Other hyperlipidemia]Onset: 07-20-2023 Resolved: 093598-62-7428JdxdkbsQxudvsvdty disorders (18 sources)Gastroesophageal reflux disease; Translations: [Gastro-esophageal reflux disease without esophagitis]Onset: 194162-30-6058KjrqqadGwprjinyx hypertension (20 sources)Essential hypertension; Translations: [Essential (primary) hypertension]Onset: 06-24-2023 Resolved: 125740-60-1610YuidvbbVnfwominlcazhh (11 sources)Arthritis of right knee; Translations: [Unilateral primary osteoarthritis, right knee]Onset: 406923-30-5493XlpvzeyKeavb nutritional; endocrine; and metabolic disorders (17 sources)Obesity caused by energy imbalance; Translations: [Morbid (severe) obesity due to excess calories]Onset: 222737-33-1504XxphpztDiswd nutritional; endocrine; and metabolic disorders (13 sources)Body mass index 40+ - severely obese; Translations: [Body mass index (BMI) 40.0-44.9, adult]Onset: 621215-93-7203NstcflvMopke screening for suspected conditions (not mental disorders or infectious disease) (20 sources)Patient encounter status; Translations: [Encounter for screening mammogram for malignant neoplasm of breast]Onset: 862393-67-6944Lxrzefiw Other upper respiratory disease (3 sources)Allergic rhinitis; Translations: [Other allergic rhinitis]10-30-2024 ChronicOther upper respiratory disease (10 sources)Allergic disposition; Translations: [Other allergic rhinitis]Onset: 814546-90-2586OfasckfOjxhifoo codes; unclassified (7 sources)Obstructive sleep apnea syndrome; Translations: [Obstructive sleep apnea (adult) (pediatric)]Onset: 728911-92-5158BfvfkfzHjjegujg codes; unclassified (1 source)Insomnia; Translations: [Insomnia, unspecified]78-66-9859Auuhxslq Past or Other Problems Problem ClassificationProblemDateDocumented DateEpisodic/ChronicMood disorders (9 sources)Mood disordersOnset: Other nutritional; endocrine; and metabolic disorders (10 sources)Severe obesity; Translations: [Class 3 severe obesity due to excess calories with body mass index (BMI) of 40.0 to 44.9 in adult]Onset: 12-11-2023 Resolved: hronic Results Test NameValueInterpretationReference SyhsuHeytcmogIbQ1f (Bld) [Mass fraction]on 64-68-7404Ewixvyqbgejjhn and review of laboratory resultsNormalLifeBrite Community Hospital of StokesLaboratory - Hematology and Cell countson 14-05-6837DmQ8c (Bld) [Mass fraction]5.5 %[facility] MAMMOGRAM SCREENING TOMOSYNTHESIS BILATERALon 61-75-5719SV MAMMOGRAM SCREENING TOMOSYNTHESIS BILATERALThis is a summary report. The complete report is available in the patient's medical record. If you cannot access the medical record, please contact the sending organization for a detailed fax or copy. Examination: BI MAMMOGRAM SCREENING TOMOSYNTHESIS BILATERAL Clinical History: breast cancer screening Technique: Screening digital mammography study of both breasts was performed with 2-D and 3-D tomosynthesis imaging. No prior study available for comparison. Findings: There is no evidence of dominant spiculated mass, grouped microcalcifications, or skin thickening which would be suggestive of malignancy. A few benign-appearing calcifications are seen on the right. Axillary lymph nodes are noted on the left and appear grossly unremarkable. IMPRESSION: Impression: No specific evidence of malignancy seen in either breast. BIRADS 2 - Benign Findings DENSITY: The breasts are almost entirely fatty. FOLLOW-UP: Routine Screening Mammogram ELECTRONICALLY SIGNED BY: Jeyson Butterfield M.D.NormalNot VjbvpwthkSiF7k (Bld) [Mass fraction]on 27-34-1206Tfuoaexbqgdyhv and review of laboratory resultsAbnormal Formerly [facility] - Hematology and Cell countson 49-99-9874UbR8f (Bld) [Mass fraction]6.7 %[facility] HospitalQuantiferon-TB Plus (Client Incubated)on 56-66-6276Kfmge interferon background IA Qn (Bld)0.04 International_Unit/mLInvalid Interpretation [facility] Comment on above:Performed By: #### [id number] #### [facility] [address] [place], [place] [address]M. tuberculosis stim IFN-g by CD4+ CD8+ T-cells corrected for background Qn (Bld)0.27 International_Unit/mLInvalid Interpretation [facility] HospitalComment on above:Performed By: #### [id number] #### [facility] [address] [place], [place] [address]M. tuberculosis stim IFN-g by CD4+ T-cells corrected for background Qn (Bld)0.26 International_Unit/mLInvalid Interpretation [facility] HospitalComment on above:Performed By: #### [id number] #### [facility] [address] [place] [address]. tuberculosis stim IFN-g Ql (Bld) [Interp]NegativeInvalid Interpretation CodeNegativeKettering Health Main CampusComment on above:Result Comment: No response to M tuberculosis antigens detected. Infection with [...] interferon gamma. Chemiluminescence immunoassay methodology Performed at: [facility] [id number] PhD Roz Arriagaformed By: #### [id number] #### [facility] [address] [place], [place] [id number] stimulated gamma interferon corrected for background Qn (Bld)>10.00Invalid Interpretation [facility] HospitalComment on above:Performed By: #### [id number] #### [facility] [address] [place] [address]Ufpinbm comment (Unsp spec) [Interp]CommentInvalid Interpretation [facility] HospitalComment on above:Result Comment: QuantiFERON-TB Gold Plus is a qualitative indirect test for M tuberculosis infection (including disease) and is intended for use in conjunction with risk assessment, radiography, and other medical and diagnostic evaluations. The QuantiFERON-TB Gold Plus result is determined by subtracting the Nil value from either TB antigen (Ag) value. The Mitogen tube serves as a control for the test.Performed By: #### [id number] #### [facility] [address] [place], [place] [address]Quantiferon-TB Plus (Client Incubated)on 60-85-4463Ewtbd interferon background IA Qn (Bld)0.09 International_Unit/mLInvalid Interpretation [facility] HospitalComment on above:Performed By: #### [id number], [id number], [id number] #### [facility] [address] [place] [address]. tuberculosis stim IFN-g by CD4+ CD8+ T-cells corrected for background Qn (Bld)0.47 International_Unit/mLInvalid Interpretation [facility] HospitalComment on above:Performed By: #### [id number], [id number], [id number] #### [facility] [address] [place] [address]. tuberculosis stim IFN-g by CD4+ T-cells corrected for background Qn (Bld)1.26 International_Unit/mLInvalid Interpretation [facility] HospitalComment on above:Performed By: #### [id number], [id number] #### [facility] [address] [place] [address]. tuberculosis stim IFN-g Ql (Bld) [Interp]PositiveAbnormal NegativeKettering Health Main CampusComment on above:Result Comment: A response to M tuberculosis antigens has been detected. [...] interferon gamma. Chemiluminescence immunoassay methodology Performed at: [facility] [address] [place] [id number] PhD Roz MalinPerformed By: #### [id number], [id number], [id number] #### [facility] [address] [place], [place] [address]Bkvsyed stimulated gamma interferon corrected for background Qn (Bld)>10.00Invalid Interpretation [facility] HospitalComment on above:Performed By: #### [id number], [id number], [id number], [id number] #### [facility] [address] [place], [place] [address]Zerqanl comment (Unsp spec) [Interp]CommentInvalid Interpretation [facility] HospitalComment on above:Result Comment: QuantiFERON-TB Gold Plus is a qualitative indirect test for M tuberculosis infection (including disease) and is intended for use in conjunction with risk assessment, radiography, and other medical and diagnostic evaluations. The QuantiFERON-TB Gold Plus result is determined by subtracting the Nil value from either TB antigen (Ag) value. The Mitogen tube serves as a control for the test.Performed By: #### [id number], [id number], [id number], [id number] #### [facility] [address] [place], [place] [address]Pzi Bs Abon 99-55-7554WVR surface Ab Ql (S)ReactiveInvalid Interpretation [facility] HospitalComment on above:Result Comment: Non Reactive: Inconsistent with immunity, less than 10 mIU/mL Reactive: Consistent with immunity, greater than 9.9 mIU/mL Performed at: [facility] [address] [place], [place] [id number] PhD Roz MalinPerformed By: #### [id number], [id number], [id number], [id number] #### [facility] [address] [place], [place] [address]Zhleahw/Mumps/Rubella Immunityon 11-65-6585AhS IgG IA Qn (S) 33.2 A unit/mLInvalid Interpretation CodeImmune >16.4FMercy Health Clermont Hospital Comment on above:Result Comment: Negative <13.5 Equivocal 13.5 - 16.4 Positive >16.4 Presence of antibodies to Rubeola is presumptive evidence of immunity except when acute infection is suspected.Performed By: #### [id number], [id number], [id number], [id number] #### [facility] [address] [place] [address]NrC IgG IA Qn (S)<9.0LowImmune >10.9[facility] Comment on above:Result Comment: Negative <9.0 Equivocal 9.0 - 10.9 Positive >10.9 A positive result generally indicates past exposure to Mumps virus or previous vaccination. Performed at: [facility] [id number] PhD Roz MalinPerformed By: #### [id number], [id number], [id number], [id number] #### [facility] [address] [place] [address]Gplulul virus IgG Qn (S)5.63 [IU]/mLInvalid Interpretation Code Immune >0.99[facility] CampusComment on above:Result Comment: Non- immune <0.90 Equivocal 0.90 - 0.99 Immune >0.99Performed By: #### [id number], [id number], [id number], [id number] #### [facility] [address] [place] [address]Vmifq IgGon 13-25-7318ZYH IgG IA Qn (S)1462Invalid Interpretation CodeImmune >165[facility] CampusComment on above:Result Comment: Negative <135 Equivocal 135 - 165 Positive >165 A positive result generally indicates exposure to the pathogen or administration of specific immunoglobulins, but it is not indication of active infection or stage of disease. Performed at: [facility] [id number] PhD Roz Arriagaformed By: #### [id number], [id number], [id number], [id number] #### [facility] [address] [place], [place] [address]Fepivod Recordson 75-39-3552Hgldqiq Records [id number]#1.00OTKindred Hospital Lima Outside Recordson 58-44-6771Qsfuhiz Records [id number]#1.00[facility] Miscellaneous Testing LCon 22-62-5857Ivdm. Test Result LCCOMMENTInvalid Interpretation CodeBrecksville Va / Crille HospitalComment on above:Order Comment: test code 608329 lav room temp andsst refrigerateResult Comment: Test Ordered: 122008 A1A, Quant+Genotype(Rfx Pheno) Zxohr-8-Fsxbbprmyhd, Serum 134 mg/dL BN Reference Range: 101-187 AAT, DNA Analysis Comment TG Result: c.1096 G>A (p.Dzi692Piu), Z allele - Not detected c.863 A>T (p.Fpk126Xdj), S allele - Not detected Not associated [...] health care providers to discuss results at [phone] (9062). Test Details: Two variants analyzed: c.1096 G>A (p.Hmq981Ocu), commonly referred to as the Z allele or PI*Z c.863 A>T (p.Zth383Vjp), commonly referred to as the S allele [...] developed and its performance characteristics determined by [employer]. It has not been cleared or approved by the Food and Drug Administration. References: Mitch RA, Michelle G, Melissa ML, Pillai M, Cross CE, Galindo K, Paulie DK, Emory SL, Azar JM, Juana ASIF, Tab Robin, Pooja Webber. The Diagnosis and Management of Alpha- 1 Antitrypsin Deficiency in the Adult. Chronic Obstr Pulm Dis. 2016 Dec 13;3(3):668-682. doi: 10.78252/jcopdf.3.3.2015.0182. PMID: 86975574; PMCID: JPP2134355. Juana ASIF, Tom V, Liz JONES. Alpha-1 Antitrypsin Deficiency. 2005May 05 [Updated 2019November 27]. In: Rivera MP, Delmer HH, Ruthy RA, et al., editors. Stacey(R) [Internet]. [place] ([place]): [facility], [place]; [phone]. Available from: https://www.ncbi.nlm.nih.gov/books/HHH6496/ Electronically Signed by: Leroy Graner, PhD Director, Molecular Genetics A1A Rfx to Phenotype Note: BN Not Indicated Performed At: CB [facility] [address] [place], [place] [id number] Roz Malin PhD Ph:[phone] Performed At: BN [facility] [address] [place], [place] [id number] Guanako Arias MD Ph:[phone] Performed At: TG [facility] [address], [place] [id number] Kailee Felipe Formerly [facility] Ph:[phone] By: #### [id number] ####[facility] (DEFAULT)[address] [place], [place] [address]Vbxhpj Summaryon 14-91-7797Zvkxgc SummaryHTMLBase 64 OohlenqjRYk3iMk+PGhlYWQ+MA0QSNGjU15bhQQzjI7OR3gPQL6DSDPQTNJYZS8JZE9ksCC1XGliK0Rh biAv [file] bGF (more content not included)...[facility] CenterAllergen Profile With Total IgE, Respiraon 83-48-5489Zliep Description LCCommentInvalid Interpretation [facility] MiamisburgComment on above:Result Comment: Levels of Specific IgE Class Description of Class ----- < 0.10 0 Negative 0.10 - 0.31 0/I Equivocal/Low 0.32 - 0.55 I Low 0.56 - 1.40 II Moderate 1.41 - 3.90 III High 3.91 - 19.00 IV Very High 19.01 - 100.00 V Very High >100.00 Very HighPerformed By: #### [id number] ####[facility] (DEFAULT)[address] [place] [address] 11902U803-LyK D pteronyssinus LC0.40 kunits/LAbnormSelect Medical Specialty Hospital - Boardman, IncComment on above:Performed By: #### [id number] ####[facility] (DEFAULT)[address] [place] [address] 24951B507-ZzI D farinae Mite LC0.45 kunits/[facility] CenternormSelect Medical Specialty [facility], Inc Comment on above:Performed By: #### [id number] ####[facility] (DEFAULT)[address] [place] [address] 44866L489-HoC Cat Hair/Dander,Irwin LC <0.10Invalid Interpretation CodeClass 0[facility] HospitalComment on above: Performed By: #### [id number] ####[facility] (DEFAULT)[address] [place] [address] 34291Q729-FaK Dog Epithelia LC<0.10Invalid Interpretation CodeClass 0[facility] HospitalComment on above:Performed By: #### [id number] ####[facility] (DEFAULT)[address] [place] [address] 62596Q237-KlL Mouse Urine LC<0.10Invalid Interpretation CodeClass 0[facility] HospitalComment on above:Result Comment: Performed At: [address] [id number] Guanako Arias MD Ph:[phone] By: #### [id number] ####[facility] (DEFAULT)[address] [place] [address] 91664C514-TaT Bermuda Grass LC<0.10Invalid Interpretation CodeClass 0[facility]rj.[facility] HospitalComment on above: Performed By: #### [id number] ####[facility] (DEFAULT)[address] [place] [address] 66440O133-XxI Garry LC<0.10Invalid Interpretation Code Class 0[facility]uder HospitalComment on above:Performed By: #### [id number] ####[facility] (DEFAULT)[address] [place] [address] 97963L508-CyI Cockroach, Vietnamese LC0.45 kunits/LAbnormalClass Community Memorial HospitalComment on above:Performed By: #### [id number] ####[facility] (DEFAULT)[address] [place] [address] 28906FgA Total LC63 IU/mLInvalid Interpretation Code6-495 [facility] HospitalComment on above:Performed By: #### [id number] ####[facility] (DEFAULT)[address] [place] [address] 95793Y187-EdF Penicillium chrysogenum LC<0.10Invalid Interpretation CodeClass 0[facility] HospitalComment on above:Performed By: #### [id number] ####[facility] (DEFAULT)[address] [place] [address] 06907K501-PhJ Cladosporium herbaru LC<0.10Invalid Interpretation CodeClass 0[facility] HospitalComment on above:Performed By: #### [id number] ####[facility] (DEFAULT)[address] [place] [address] 63338T114-KrW Aspergillus fumigatu LC<0.10Invalid Interpretation CodeClass 0 [facility] HospitalComment on above:Performed By: #### [id number] ####[facility] (DEFAULT)[address] [place] [address] 49953P934-RnW Alternaria Alternata LC<0.10Invalid Interpretation CodeClass 0[facility] HospitalComment on above:Performed By: #### [id number] ####[facility] (DEFAULT)[address] [place] [address] 38462E811-VkZ Maple/Long LC<0.10Invalid Interpretation CodeClass 0[facility] HospitalComment on above:Performed By: #### [id number] ####[facility] (DEFAULT)[address] [place] [address] 26244T920-DnP Common Silver Birch LC<0.10Invalid Interpretation CodeClass 0 [facility] HospitalComment on above:Performed By: #### [id number] ####[facility] (DEFAULT)[address] [place] [address] 15308T851-SzQ [place], Mountain LC<0.10Invalid Interpretation CodeClass 0[facility] HospitalComment on above:Performed By: #### [id number] ####[facility] (DEFAULT)[address] [place] [address] 81346X781-OpC [place], White LC<0.10Invalid Interpretation CodeClass 0[facility] HospitalComment on above:Performed By: #### [id number] ####[facility] (DEFAULT)[address] [place] [address] 89481X958-HqD Elm, Tongan (White) LC<0.10Invalid Interpretation CodeClass 0[facility] Comment on above:Performed By: #### [id number] ####[facility] (DEFAULT)[address] [place] [address] 63197H972-RfE Bath LC<0.10Invalid Interpretation CodeClass 0[facility] HospitalComment on above:Performed By: #### [id number] ####[facility] (DEFAULT)[address] [place] [address] 98536K995-HoU Maple [place] LC<0.10Invalid Interpretation CodeClass 0 [facility] HospitalComment on above:Performed By: #### [id number] ####[facility] (DEFAULT)[address] [place] [address] 50897B610-EhD Dayton LC <0.10Invalid Interpretation CodeClass 0[facility] HospitalComment on above: Performed By: #### [id number] ####[facility] (DEFAULT)[address] [place] [address] 62889S981-FqI Aaron, White LC<0.10Invalid Interpretation CodeClass 0[facility] HospitalComment on above:Performed By: #### [id number] ####[facility] (DEFAULT)[address] [place] [address] 04202X409-FbU Pecan, [place] LC<0.10Invalid Interpretation CodeClass 0[facility] HospitalComment on above:Performed By: #### [id number] ####[facility] (DEFAULT)[address] [place] [address] 88239N288-NcK White [place] LC<0.10Invalid Interpretation CodeClass 0[facility] HospitalComment on above:Performed By: #### [id number] ####[facility] (DEFAULT)[address] [place] [address] 61626E246-WvB Ragweed, Short/Commo LC<0.10Invalid Interpretation CodeClass 0 [facility] HospitalComment on above:Performed By: #### [id number] ####[facility] (DEFAULT)[address] [place] [address] 96228Y152-HlT Thistle, [place] Islander LC<0.10Invalid Interpretation CodeClass 0[facility] HospitalComment on above:Performed By: #### [id number] ####[facility] (DEFAULT)[address] [place] [address] 91896J405-ZeP Sheep Frierson(Dock) LC<0.10Invalid Interpretation CodeClass 0[facility] HospitalComment on above:Performed By: #### [id number] ####[facility] (DEFAULT)[address] [place] [address] 44603Jqfwse Summaryon 27-63-7112Raijzm SummaryLIFEPOINT HOSPITALSBase 64 AugcqbibKLc8hJl+PGhlYWQ+QL5CLMQwK96vuCPnkU6BI5zGMC2AWVRKVZUYFJ4MNZ2wcFJ2RAxkQ2Lj biAv [file] bGF (more content not included)...[facility] Medical CenterIGA Qn LCon 02-09-2022 Immunoglobulin A, Qn, Serum LC332 mg/dLInvalid Interpretation Wqnx76-699Pzsmozzj[address] [place], [place] [address]Comment on above:Result Comment: Performed At: [address] [id number] Roz Malin PhD Ph:[phone] By: #### [id number], [id number], [id number] ####[facility] (DEFAULT)[address] [place] [address] IGG Qn LCon 04-03-4824Qejenjukotbvps G, Qn, Serum LH3102 mg/dLInvalid Interpretation Gzwg292-7458Jjnxbkfk HospitalComment on above:Result Comment: Performed At: [facility] [address] [place], [place] [id number] Roz Malin PhD Ph:[phone] By: #### [id number], [id number], [id number] ####[facility] (DEFAULT)[address] [place] [address] 44676 IGM Qn LCon 01-79-9609Dbuyxitdjxvosy M, Qn, Serum LC89 mg/dLInvalid Interpretation Rbxl05-331Azcwtfrw HospitalComment on above:Result Comment: Performed At: [address] [id number] Roz Malin PhD Ph:[phone] By: #### [id number], [id number], [id number] ####[facility] (DEFAULT)[address] [place] [address] 55162 Provider Orderson 97-90-4918Dygfbbcd Orders [id number]#1.00OTGTIFFMercy Health St. [facility] Pulmonary Procedureon 33-51-0992Hrjsajqig Procedure [id number]#1.00OTGTIFF I agree with the computerized interpretation. There is minimal obstructive lung disease with increased airway resistance. There is air trapping but no hyperinflation there is no diffusion impairment.While the study does not meet criteria for positive response to bronchodilator therapy, it is notedthat the FEF 25-75% improved by 44%. Therefore trial of bronchodilator may be indicated. Please correlate clinically. [Electronically Signed on: 02/09/2022 08:24 EDT] Mummert Garry LONGO [Verified on: 02/09/2022 08:24 EDT] Mummert Garry LONGO [Transcribed on: 02/09/2022 06:38 EDT] [facility].Auto Diff 1on 80-46-9773Uauv Coal %6 %Normal1-12 [facility] HospitalComment on above:Performed By: #### [id number], [id number], [id number], [id number] #### [facility] (DEFAULT) [address] [place] [address] 15259Uvwt Abs#0.1 v59Niteae0.0-0.2Magrj.[facility] HospitalComment on above:Performed By: #### 3797023, 00339899, [id number], [id number] #### [facility] (DEFAULT) [address] [place] [address] 61326Csgmdztkt/100 WBC (Bld)1.1 %Normal0.2-2.0[facility] Comment on above:Performed By: #### 5252072, 78105369, 8438216499, [id number] #### [facility] (DEFAULT) [address] [place] [address] 35791Cqb Abs#0.3 e59Inddhk2.0-0.4[facility] HospitalComment on above:Performed By: #### 3833268, 92921572, 4337359092, [id number] #### [facility] (DEFAULT) [address] [place] [address] 35583Irixhxztlxp/100 WBC (Bld)3.1 %Normal0.9-4.0[facility] HospitalComment on above:Performed By: #### 8803719, 07265215, [id number], [id number] #### [facility] (DEFAULT) [address] [place] [address] 20177Xcozm Abs#3.0 l82Hyue6.3-2.9[facility] HospitalComment on above:Performed By: #### 0627990, 04576651, [id number], [id number] #### [facility] (DEFAULT) [address] [place] [address] 96020Moxhlcabbgi/100 WBC (Bld)36 %Drpejg96-35Ehddeshm Hospital Comment on above:Performed By: #### 9965129, 86396474, 8605242957, [id number] #### [facility] (DEFAULT) [address] [place] [address] 39876Wsjp Abs#0.5 g18Gcemxk7.0-0.8[facility] HospitalComment on above:Performed By: #### 3271105, 16816767, 8305808592, [id number] #### [facility] (DEFAULT) [address] [place] [address] 93535Nkol Abs#4.5 r29Ruohtz6.5-9.2[facility] HospitalComment on above:Performed By: #### 1078765, 03977829, 5028198789, [id number] #### [facility] (DEFAULT) [address] [place] [address] 28591Vmmxjrkamtm/100 WBC (Bld)54 %Ojdqqc46-01Guvnhxug Hospital Comment on above:Performed By: #### 5976172, 40172208, 3776944870, [id number] #### [facility] (DEFAULT) [address] [place] [address] 56860WVX w/ Auto Diffon 70-23-1106Gkvfpjxriqn distribution width (RBC) [Ratio]13.0 %Nrcvup28.5-15.0[facility] HospitalComment on above: Performed By: #### 8860745, 96586274, 5986308735, [id number] #### [facility] (DEFAULT) [address] [place] [address] 44006Fqaxtgabhn (Bld) [Volume fraction]41.5 %High33.7-40.4 [facility] HospitalComment on above:Performed By: #### 2605505, 67296530, [id number], [id number] #### [facility] (DEFAULT) [address] [place] [address] 02353Dkuzikmvzd (Bld) [Mass/Vol]13.7 g/uCCorhsj17.3-15.9 [facility] HospitalComment on above:Performed By: #### 7961789, 24981538, 6223515645, [id number] #### [facility] (DEFAULT) [address] [place] [address] 36113Jbdrq WBC8.4 b44Mxexghx Interpretation CodeBrecksville Va / Crille HospitalComment on above:Performed By: #### 3855076, 42724883, 8882961391, [id number] #### [facility] (DEFAULT) [address] [place] [address] 79080Typ Diff?AutoNormalKettering Health HospitalComment on above: Performed By: #### 1412349, 55382565, 2437836479, [id number] #### [facility] (DEFAULT) [address] [place] [address] 78605JIA (RBC) [Entitic mass]29 siJvxmri40-85Jwlqlwtl Hospital Comment on above:Performed By: #### 0706586, 93046747, 4001861100, [id number] #### [facility] (DEFAULT) [address] [place] [address] 49371HJNR (RBC) [Mass/Vol]33 g/iFGqsjai32-66Qhutkmuf Hospital Comment on above:Performed By: #### 4320356, 22066298, 5316926287, 1674258629 #### [facility] (DEFAULT) [address] [place] [address] 56475CIQ (RBC) [Entitic vol]89 mXOfkykd31-843Zjkcfgpg Hospital Comment on above:Performed By: #### 8282433, 00630017, 6166809282, [id number] #### [facility] (DEFAULT) [address] [place] [address] 96544Ichvagoa202 q12Ylxh781-847Mjsdjsay HospitalComment on above:Performed By: #### 2578592, 37042469, 9876535562, 4826041599 #### [facility] (DEFAULT) [address] [place] [address] 70633Ghhlwrqz mean volume (Bld) [Entitic vol]8.7 fLNormal 6.3-10.2[facility] HospitalComment on above:Performed By: #### 6167842, 34916519, 7059623625, 2942885922 #### [facility] (DEFAULT) [address] [place] [address] 18371GHW1.68 f43Olakwr9.70-5.30[facility] HospitalComment on above:Performed By: #### 6373523, 60051834, 3677525295, 0340264299 #### [facility] (DEFAULT) [address] [place] [address] 74887WLT7.4 l76Cyirrx3.5-10.5[facility] HospitalComment on above: Performed By: #### 9499708, 48198430, 3043040795, 8086114412 #### [facility] (DEFAULT) [address] [place] [address] 99882BXN Standardon 59-84-6305wBEA Non AA>60Invalid Interpretation [facility] Mi[facility]burgComment on above:Performed By: #### 3016018, 52549318, 3438640061, 5034090434 #### [facility] (DEFAULT) [address] [place] [address] 18099fLUK AA>60Invalid Interpretation [facility] Comment on above:Result Comment: Chronic Kidney disease could be indicated at eGFRs of less than 60 ml/min/1.73m2. Kidney Failure is indicated at less than 15 ml/min/1.60b0Tbwdtgdub By: #### 9485195, 96147376, 6935996129, 5089859179 #### [facility] (DEFAULT) [address] [place] [address] 51179Sldognv [Mass/Vol]3.9 g/dLNormal3.5-5.0[facility] Comment on above:Performed By: #### 0970373, 33143236, 8870859159, 7207308851 #### [facility] (DEFAULT) [address] [place] [address] 71514Lmtszzo/Globulin [Mass ratio]1.1 {ratio}Low1.4-2.6[facility] HospitalComment on above:Performed By: #### 4857933, 06739410, 0745526717, [id number] #### [facility] (DEFAULT) [address] [place] [address] 31766Cvy Phos83 IU/ZQqcwaz38-34Tlarrqfm HospitalComment on above:Performed By: #### 0382413, 02754594, 6626419639, 5997315989 #### [facility] (DEFAULT) [address] [place] [address] 77684SHM [Catalytic activity/Vol]24.0 U/BNzdvbq92.0-54.0 [facility] HospitalComment on above:Performed By: #### 4777517, 66580082, 1258030805, 8791836742 #### [facility] (DEFAULT) [address] [place] [address] 60796Magax gap [Moles/Vol]13.0 mmol/LNormal5.0-19.0[facility] HospitalComment on above:Performed By: #### 0212218, 16635874, 6744578883, 8023298348 #### [facility] (DEFAULT) [address] [place] [address] 00788NUC [Catalytic activity/Vol]21 U/LSyqrmh25-59Mrwqbigt HospitalComment on above:Performed By: #### 8614643, 22921307, 2137634205, 8250821615 #### [facility] (DEFAULT) [address] [place] [address] 56896Bkdo Total0.5 mg/dLNormal0.3-1.2[facility] HospitalComment on above:Performed By: #### 7036585, 49557328, 8153695896, 1804970103 #### [facility] (DEFAULT) [address] [place] [address] 88348Sukrcgq [Mass/Vol]9.1 mg/dLNormal8.9-10.3[facility] Comment on above:Performed By: #### 3623316, 53656850, 7054659938, [id number] #### [facility] (DEFAULT) [address] [place] [address] 07887Prvbaivd [Moles/Vol]100 mmol/MAct688-733Zighvqpf Hospital Comment on above:Performed By: #### 0836486, 88295798, 9228205572, 9471003806 #### [facility] (DEFAULT) [address] [place] [address] 53814ZT5 [Moles/Vol]29 mmol/OUxmxqe42-51Raoiytbj Hospital Comment on above:Performed By: #### 0683572, 11453292, 6835912419, 3593128905 #### [facility] (DEFAULT) [address] [place] [address] 82350Rifcomxmwk [Mass/Vol]0.59 mg/dLLow0.60-1.30[facility] HospitalComment on above:Performed By: #### 4722758, 10469916, 8616524844, 7717799722 #### [facility] (DEFAULT) [address] [place] [address] 40353Ahyamtiq (S) [Mass/Vol]3.5 g/dLNormal1.5-4.3[facility] HospitalComment on above:Performed By: #### 8205911, 49916301, 3367052918, 7773199540 #### [facility] (DEFAULT) [address] [place] [address] 21169Dlbcumm [Mass/Vol]129.0 mg/xSEumz25.0-118.0[facility] HospitalComment on above:Performed By: #### 7241208, 31409159, 9643476957, 8301063847 #### [facility] (DEFAULT) [address] [place] [address] 54763Wsrnghxnir017 mOsm/LInvalid Interpretation CodeKettering Health HospitalComment on above:Performed By: #### 6470393, 05405903, 8518369121, [id number] #### [facility] (DEFAULT) [address] [place] [address] 35211Bffyfbuki [Moles/Vol]4.0 mmol/LNormal3.6-5.1[facility] HospitalComment on above:Performed By: #### 9634203, 32965339, 4706840721, 8070944907 #### [facility] (DEFAULT) [address] [place] [address] 28292Pvikxrc [Mass/Vol]7.4 g/dLNormal6.5-8.1Magrj.[facility] Hospital Comment on above:Performed By: #### 3754089, 96704512, 6327102712, 4046282794 #### [facility] (DEFAULT) [address] [place] [address] 43852Gzihwt [Moles/Vol]138.0 mmol/YUmzbfv692.0-144.0[facility] HospitalComment on above:Performed By: #### 0086342, 77202881, 4537765048, 4761291509 #### [facility] (DEFAULT) [address] [place] [address] 05648Wesj nitrogen [Mass/Vol]12 mg/dLNormal8-26[facility] HospitalComment on above:Performed By: #### [id number], [id number], [id number], [id number] #### [facility] (DEFAULT) [address] [place] [address] 59613Vkkw nitrogen/Creatinine [Mass ratio]20.0 mg/mgHigh 4.6-16.2[facility] HospitalComment on above:Performed By: #### [id number], [id number], [id number] #### [facility] (DEFAULT) [address] [place] [address] [id number] Summaryon 39-21-1995Osrjnk SummaryLIFEPOINT HOSPITALSBase 64 CbdnccnsTAn6vSy+PGhlYWQ+DR7VLTRgY13oaDVftY8GA3rRNL1KUCVXTGUZJX1NTX3vzLM3BEadC9Gu biAv [file] bGF (more content not included)...NormalK[facility]tering Health HospitalExtra SSTon 02-08-2022 Tube CollectedYesInvalid Interpretation CodeBrecksville Va / Crille HospitalComment on above: Performed By: #### [id number] ####[facility] (DEFAULT)[address] [place] [address] [id number] Panel Standardon 74-84-1996Qlqppurccuk [Mass/Vol]200.0 mg/mIQxpvby96.0-200.0[facility] HospitalComment on above:Result Comment: Desirable - Less than 200 mg/dL Borderline high risk - 200-239 mg/dL High risk - 240 mg/dL and over.Performed By: #### [id number], [id number], [id number], [id number] #### [facility] (DEFAULT) [address] [place] [address] 69612Vfrytoahiws in HDL [Mass/Vol]40 mg/vKQzohom76-68Xtujhenj HospitalComment on above:Result Comment: High risk - <40 mg/dL.Performed By: #### [id number], [id number], [id number], [id number] #### [facility] (DEFAULT) [address] [place] [address] [id number] in LDL [Mass/Vol]112 mg/dLHigh1-100[facility] HospitalComment on above:Result Comment: Optimal - Less than 100 mg/dL Borderline high risk - 130-159 mg/dL High risk - 160-189 mg/dL.Performed By: #### [id number], [id number], [id number], [id number] #### [facility] (DEFAULT) [address] [place] [address] 76192Onopldyhraf.total/Cholesterol in HDL [Mass ratio]5.0 {ratio}High0.0-4.5[facility] HospitalComment on above:Performed By: #### [id number], [id number], [id number], [id number] #### [facility] (DEFAULT) [address] [place] [address] 36130Atkdrluvtnhu [Mass/Vol]242.0 mg/dLHigh0.0-150.0[facility] HospitalComment on above:Performed By: #### [id number], [id number], [id number], [id number] #### [facility] (DEFAULT) [address] [place] [address] 24652YKHB.48 mg/dLHigh5-40[facility] HospitalComment on above: Performed By: #### [id number], [id number], [id number], [id number] #### [facility] (DEFAULT) [address] [place] [address] 45699Llywlmedtkciq Testing LCon 00-20-2537Umxn Code [id number] Invalid Interpretation CodeBrecksville Va / Crille HospitalComment on above:Order Comment: test code 632318 lav room temp andsst refrigeratePerformed By: #### [id number] ####[facility] (DEFAULT)[address] [place] [address] 78346Lhjt Name LCa1-Antitrypsin DeficiencyInvalid Interpretation CodeBrecksville Va / Crille HospitalComment on above:Order Comment: test code 289688 lav room temp andsst refrigerate Performed By: #### [id number] ####[facility] (DEFAULT)[address] [place] [address] 85787B Micro Albumin 1on 02-08-2022U Micro Albumin<3.0 Normal0.0-18.9Brecksville Va / Crille HospitalComment on above:Performed By: #### [id number] #### [facility] (DEFAULT) [address] [place] [address] 82063CN Chest 2 Viewson 87-34-9224KS Chest 2 ViewsEXAM: XR Chest 2 Views HISTORY: Chronic obstructive [...] seen in the chest. Final Dictated by: Greer EDDYJeyson Dictated DT/TM: 02/08/22 12:58 Signed (Electronic Signature): Jeyson Butterfield MD 02/08/22 4:02 pm Technologist: [facility] Urineon 02-05-2022 UrineNo growth at [address] [facility] Medical CenterComment on above:Performed By: #### [id number] ####[facility] (DEFAULT)[address] [place] [address] 11426Ztenymb Recordson 49-22-2943Rtqkgnl Records [id number]#1.00[facility] Consent Formson 00-65-2899Cqbkmzq Forms [id number]#1.00[facility] Progress Note - Nurseon 95-05-6112Tlzgaytc Note - NurseAntigen test ordered, test resulted negative, patient informed of negative result. [Electronically Signed on: 07/14/2021 09:35 EST] Sallie Fernandez RN [Verified on: 07/14/2021 09:35 EST] Sallie Fernandez RNNoTrinity Health System East CampusConsent Formson 29-53-4034Nhpjgli Forms [id number]#1.00OTKindred Hospital Lima.QC Respiratory Panel 2.1 (BioFire)on 93-33-6403Bunjloyf Control-Resp Panel 2.1(BioFire)TriHealthComment on above:Order Comment: Ordered by Discern. [GL_RP21_BIOFIRE_QC]Performed By: #### [id number] #### [facility] (DEFAULT) [address] [place] [address] 12825 Vital Signs Date TimeVital SignValuePerforming StxheedjtTvjjfvqv82-76-5395 15:07-0400Body hemckf769.02 cmPHYSICIAN [facility]10[facility] 15:07-0400Body mass index (BMI) [Ratio]43.7 kg/n4ZVGKZCXBC [facility]10-28-2025 15:07-0400Body ggzkonhokeb99.4 [degF]PHYSICIAN [facility]10-28-2025 15:07-0400Body weight 112.03 kgPHYSICIAN [facility]10-28-2025 15:07-0400Diastolic blood ekgwpouo74 mm[Hg]PHYSICIAN [facility]10-28-2025 15:07-0400Heart rate75 /minPHYSICIAN [facility]10-28-2025 15:07-0400Inhaled oxygen flow rate0 L/minPHYSICIAN [facility]10-28-2025 15:07-0400 Respiratory rate22 /minPHYSICIAN [facility] 05-06-2025 15:07-7439GyV7% (BldA) [Mass fraction]97 %PHYSICIAN [facility]10-28-2025 15:07-0400Systolic blood tcotumkh876 mm[Hg]PHYSICIAN [facility]08-12-2025 08:47-0400 Body mass index (BMI) [Ratio]42.9 kg/m2Vaishali Zapata VISUAL SUPERVISOR Work Phone: [facility] HospitalBomwajszhc95-81-3310 08:47-0400Body temperature 98.49 [degF]Vaishali Zapata VISUAL SUPERVISOR Work Phone: [facility] HospitalVaoginvejj11-29-2081 08:47-0400Body xkerbz500.86 kgVaishali Zapata VISUAL SUPERVISOR Work Phone: [facility] HospitalFixlhyedlb31-17-4330 08:47-0400Diastolic blood futzjodo12 mm[Hg]Vaishali Aichholz VISUAL SUPERVISOR Work Phone: [facility] HospitalUubdysqorr58-40-2236 08:47-0400Heart rate70 /min Vaishali Gradyz VISUAL SUPERVISOR Work Phone: [facility] HospitalKmlxuwzkyd67-00-2896 08:47-0400Respiratory rate18 /minLisa Joshuahholz VISUAL SUPERVISOR Work Phone: [place] [address]Psqntpmyjq30-11-5742 08:47-1483WyQ3% (BldA) [Mass fraction]97 %Vaishali Rachellholz VISUAL SUPERVISOR Work Phone: [place] [address]Cgurgtguir95-41-6139 08:47-0400Systolic blood xyoaymao949 mm[Hg]Vaishali Rachellholz VISUAL SUPERVISOR Work Phone: [facility] HospitalDyiynmwvap70-56-9011 14:51-0400Body mass index (BMI) [Ratio]45.53 kg/m2Lisa Rachellholz VISUAL SUPERVISOR Work Phone: [facility] HospitalAymakbxihg09-08-2102 14:51-0400Body temperature 98.01 [degF]Vaishali Rachellholz VISUAL SUPERVISOR Work Phone: [facility] HospitalBhbrqtzcew01-60-1479 14:51-0400Body exwdya548.57 kgLisa Rachellholz VISUAL SUPERVISOR Work Phone: [facility] HospitalJiygrdbuqi19-55-6524 14:51-0400Diastolic blood wmrrvtam14 mm[Hg]Vaishali Joshuamarkoholz VISUAL SUPERVISOR Work Phone: [facility] HospitalKnmqmhgdag15-38-5569 14:51-0400Heart rate90 /min Vaishali Rachellholz VISUAL SUPERVISOR Work Phone: [place] [address]Wielihbtol03-07-1104 14:51-0400Respiratory rate20 /minLisa Aichholz VISUAL SUPERVISOR Work Phone: [place] [address]Desrtewctk69-59-2751 14:51-9418UjW6% (BldA) [Mass fraction]97 %Vaishali Josuhahholz VISUAL SUPERVISOR Work Phone: [place] [address]Hrzprpnhqv64-64-6540 14:51-0400Systolic blood jawooosk963 mm[Hg]Vaishali Lewiskayleigh VISUAL SUPERVISOR Work Phone: [facility] Encounters Encounter DateEncounter TypeCare ProviderFacilityStart: 05-06-2025 End: 43-88-4828lbkotnavwoXXOVKTNFG NO FAMILY-[facility] ClydeStart: 05-06-2025 End: 62-92-3533Sqvhpep encounter procedureLi Akbar Zapata VISUAL SUPERVISOR-C-FPG [facility] Medicine [place] Work Phone: Start: 02-19-2025 End: 95-99-0148KvjhhoTehn Aichholz VISUAL SUPERVISOR Work Phone: [facility] FMComment on above:Type 2 diabetes mellitus without complication, without long-term current use of insulin (HCC) (Primary Dx)Start: 02-18-2025 End: 47-71-6003Aaroal flowsheetVaishali Zapata VISUAL SUPERVISOR Work Phone: [facility] FMStart: 02-18-2025 End: 88-77-2195Ciecpw flowsheetViashali Lovettholmarques VISUAL SUPERVISOR Work Phone: [facility] FMStart: 02-18-2025 End: 34-67-2612Yjddqo outpatient visit 25 minutesVaishali Benny VISUAL SUPERVISOR Work Phone: [facility] FMComment on above:Type 2 diabetes mellitus without complication, without long-term current use of insulin (HCC) (Primary Dx); Gastroesophageal reflux disease without esophagitis; Essential hypertension ; Morbid (severe) obesity due to excess calories ([facility]); JAYSON (obstructive sleep apnea)Start: 02-18-2025 End: 93-46-0410fvxupcynqcSYXI AICHHOLZNot AvailableStart: 02-17-2025 End: 57-52-6511NvqitoUitt Aichholz VISUAL SUPERVISOR Work Phone: [facility] FMComment on above:Type 2 diabetes mellitus without complication, without long-term current use of insulin (HCC); Morbid (severe) obesity due to excess calories ([facility])Start: 12-26-2024 End: 08-13-4046crvvlyaayuJUVSAshleigh Khoury AvailableStart: 11-27-2024 End: 27-15-8356LnzsnkXewx Aichholz VISUAL SUPERVISOR Work Phone: [facility] FMComment on above:Hyperlipidemia, unspecified hyperlipidemia type (CMS/HCC); Primary hypertension (CMS/HCC); Environmental and seasonal allergies; Type 2 diabetes mellitus without complication, without long-term current use of insulin; Non-seasonal allergic rhinitis, unspecified trigger; Gastroesophageal reflux disease without esophagitis; Morbid (severe) obesity due to excess calories (CMS/HCC); Body mass index (BMI) 40.0-44.9, adult (CMS/HCC)Start: 11-06-2024 End: 34-89-0570JtmmjiRpvj Aichholz VISUAL SUPERVISOR Work Phone: [facility] FMComment on above:Environmental and seasonal allergies (Primary Dx)Start: 10-30-2024 End: 18-10-0123Xsognlsj preventive med est patient 40-64yrsLisa Zapata VISUAL SUPERVISOR Work Phone: [facility] FMComment on above:Encounter for adult wellness visit (Primary Dx); Morbid (severe) obesity due to excess calories (CMS/HCC); Essential hypertension (CMS/HCC); Gastroesophageal reflux disease without esophagitis; Body mass index (BMI) 40.0-44.9, adult (CMS/HCC); Type 2 diabetes mellitus without complication, without long-term current use of insulin; Mixed hyperlipidemia (CMS/HCC); Screening mammogram, encounter for; Non-seasonal allergic rhinitis, unspecified trigger; Hyperlipidemia, unspecified hyperlipidemia type (CMS/HCC); Primary hypertension (CMS/HCC)Start: 10-30-2024 End: 16-99-3485tsgyrzrszpZQJMAshleigh Khouyr AvailableStart: 10-30-2024 End: 67-72-9591Dyrolms encounter statusVaishali Zapata VISUAL SUPERVISOR Work Phone: [facility] HealthcareStart: 07-08-2024 End: 80-07-7367TaolxnXfyyqqyqGamal Crowley VISUAL SUPERVISOR Work Phone: [facility] FMComment on above:Type 2 diabetes mellitus without complication, without long-term current use of insulin (CMS/HCC); Primary hypertension (CMS/HCC)Start: 08-31-2023 End: 58-62-7194qxywueohyqTmjn T AMESFacility:FTMCStart: 08-25-2023 End: 80-28-4330gqenxmlhtdUzptba J CromleyFacility:FTMCStart: 08-25-2023 End: 99-99-9144qqoyaucilwAkol T AMESFacility:FTMCStart: 11-84-9397Lecrvq Only Shaikh Carlos EDDY Work Phone: [facility] IMComment on above:Type 2 diabetes mellitus without complication, without long-term current use of insulin (CMS/HCC) (P rimary Dx)Start: 07-20-2023 End: 34-24-3306Alrzyta encounter procedureSzechariah Gonzalez MD Work Phone: NONJ HealthcareStart: 05-26-2023 End: 38-35-8112wglmxkewghXequ T AMESFacility:FTMCStart: 32-74-5190pofjmtdwsl SHAIKH Marko LOPEZDFacility:H1 Procedures DateProcedureProcedure DetailPerforming ClinicianStart: 46-59-1448Hvywynxhdd glycosylated l8iZzcn Aichholz VISUAL SUPERVISOR Work Phone: Start: 16-48-4954BctodksnhztGbdw Aichholz VISUAL SUPERVISOR Work Phone: Start: 47-83-6665Hvpcaxkjrn glycosylated v6eIlog Aichholz VISUAL SUPERVISOR Work Phone: Plan of Treatment DateCare ActivityDetailAuthorStart: 68-76-0892Vxpfwtzes for malignant neoplasm of colonNOMS HealthcareStart: 55-99-3244Ddoaomlut for malignant neoplasm of breastMammogramNONJ HealthcareStart: 97-76-0231Qwpuh screening for protein Diabetes: Urine Protein ScreeningNONJ HealthcareStart: 14-02-2747Ibmyrzdipz A1c measurementDiabetes: Hemoglobin R2NLPPF HealthcareStart: 04-22-2025 End: 47-83-5239Vcizqoh encounter tabuwcpsk58/14/2025 8:40 AM EDT Office Visit [facility] [address] [place] [phone] Vaishali Zapata NP [address] [place] [phone] [facility] FMStart: 39-59-4193Vnwxtlyt screeningDiabetes: Retinopathy ScreeningMOUNTAIN [facility]INT [facility] HealthcareStart: 02-98-7545Dddnfbnqz vaccinationNONJ HealthcareStart: 02-18-2025 End: 03-70-9857Msuncyh encounter procedureNOLOS ANGELES COUNTY [facility] HOSPITALComment on above: Gastroesophageal reflux disease without esophagitis (Primary Dx); Type 2 diabetes mellitus without complication, without long-term current use of insulin ([facility]); Essential hypertension ; Morbid (severe) obesity due to excess calories ([facility])Start: 01-29-2025 End: 68-80-4585Bqsajut encounter xermftdql61/23/2025 3:40 PM EDT Office Visit [facility] [address] [place] [address] Vaishali Zapata NP [address] [place] [phone] [facility] FMStart: 96-23-0607Pxovuvhwua A1c measurement Diabetes: Hemoglobin S1PRRHM HealthcareStart: 36-63-9393Swamu screening for proteinDiabetes: Urine Protein ScreeningMOUNTAIN POINT [facility] HealthcareStart: 10-30-2024 End: 40-84-7459HUF W Auto Differential panel - BloodCBC and differential Lab Routine Encounter For Adult Wellness Visit Expected: 10/30/2024 (Approximate), Expires: 10/30/2025[facility] Work Phone: Comment on above:Expected: 10/30/2024 (Approximate), Expires: 10/30/2025Start: 10-30-2024 End: 71-42-7402Dkrunjbdfsbpy metabolic 2000 panel - Serum or PlasmaComprehensive metabolic panel Lab Routine Encounter for adult wellness visit Expected: 10/30/2024 (Approximate), Expires: 10/30/2025NONJ HealthcareComment on above: Expected: 10/30/2024 (Approximate), Expires: 10/30/2025Start: 10-30-2024 End: 49-90-9204Kewtj 1996 panel - Serum or PlasmaLipid panel Lab Routine Encounter for adult wellness visit Expected: 10/30/2024 (Approximate), Expires: 10/30/2025N[facility] HealthcareComment on above:Expected: 10/30/2024 (Approximate), Expires: 10/30/2025Start: 10-30-2024 End: 91-03-8078AU Breast - bilateral ScreeningBilateral screening mammogram Imaging Routine Screening mammogram, encounter for Expected: 10/30/2024 (Approximate), Expires: 12/30/2025NONJ HealthcareComment on above:Expected: 10/30/2024 (Approximate), Expires: 12/30/2025Start: 10-30-2024 End: 80-62-3404Zvajoqlneebk/Creatinine panel in random UrineMicroalbumin / creatinine, urine ratio Lab Routine Essential hypertension (CMS/HCC) Type 2 diabetesmellitus without complication, without long-term current use of insulin Encounter for adult wellness visit Expected: 10/30/2024 (Approximate), Expires: 10/30/2025NJ HealthcareComment on above:Expected: 10/30/2024 (Approximate), Expires: 10/30/2025Start: 10-30-2024 End: 34-25-1352Ohhpvqalmqu [Units/volume] in Serum or PlasmaTSH Lab Routine Encounter for adult wellness visit Expected: 10/30/2024 (Approximate), Expires: 10/30/2025NONJ HealthcareComment on above:Expected: 10/30/2024 (Approximate), Expires: 10/30/2025Start: 10-30-2024 End: 30-28-9407Fdykuygasy complete panel - UrineUrinalysis with reflex microscopic (clean catch) Lab Routine Encounter for adult wellness visit Expe cted: 10/30/2024 (Approximate), Expires: 10/30/2025NONJ HealthcareComment on above:Expected: 10/30/2024 (Approximate), Expires: 10/30/2025Start: 03-12-2024 Hemoglobin A1c measurementDiabetes: Hemoglobin B3RACVS HealthcareStart: 63-65-5853Jgngfmtjd vaccinationInfluenza Vaccine (#1)[facility] HealthcareStart: 10-26-2023 End: 47-15-2842Njsyhrj encounter hskslbsyi22/18/2024 1:00 PM EDT Office Visit [facility] [address] [place] [phone] Shaikh Gonzalez MD [address] [place] [phone] [facility] IMStart: 57-03-7802Aaimaypcb vaccinationInfluenza Vaccine (#1)[facility] HealthcareStart: 89-58-8776Ykesrcqvod A1c measurementDiabetes: Hemoglobin N1WUBFK HealthcareStart: 91-80-6375Ieomslyqt for malignant neoplasm of breastMammogramNONJ HealthcareStart: 98-56-7557Vmmkhlmkc for malignant neoplasm of cervixNOMS HealthcareStart: 12-81-2649Shnfomwcr for malignant neoplasm of cervixPap SmearNONJ HealthcareStart: 10-38-7754Batfq screening for proteinDiabetes: Urine Protein ScreeningMOUNTAIN POINT [facility] HealthcareStart: 1968 Screening for malignant neoplasm of colonNONJ Healthcare Immunizations Immunization DateImmunizationNotesCare TxbfdbqxGwxqxivc12-87-9410ozxzxmums, seasonal, injectableLisa Benny VISUAL SUPERVISOR Work Phone: [facility] HospitalGurvycdnyr29-06-3954xsfskqjit virus vaccine, unspecified formulationLynnette Crowley VISUAL SUPERVISOR Work Phone: [facility] HospitalAetkimatsh60-44-2137Xpgkyla SARS-CoV-2 VaccinationSzechariah Gonzalez MD Work Phone: [facility] HospitalSwpjuvpdcx40-37-2286rujauubau, injectable, quadrivalent, contains preservativeSzechariah Gonzalez MD Work Phone: [facility] HospitalDduouaepng74-59-6708pajgsdvai, injectable, quadrivalent, preservative Long Gonzalez MD Work Phone: [facility] HospitalPwmxmbwotz81-66-5583emdyfxpul virus vaccine, unspecified formulationSzechariah Gonzalez MD Work Phone: [facility] HospitalGfbtwjltuf04-11-9993ewyvckyfj, injectable, quadrivalent, contains preservativeSzechariah Gonzalez MD Work Phone: [facility] HospitalQriyudompe53-36-8560uwdtqvkkx, injectable, quadrivalent, preservative Long Gonzalez MD Work Phone: [facility] HospitalDrgdhlazju41-87-4641nzdttne, mumps and rubella virus vaccineSzechariah Gonzalez MD Work Phone: [facility] Payers DatePayer CategoryPayerPolicy [id number] [facility] Member Subscriber Plan / Payer (Effective 2025-Present) Name: Colette Angelo Relation to Subscriber: Self Name: Colette Angelo Payer ID: Not on file Type: Not on file Address: [address] [place] [id number] [id number] Health Insurance [id number] [facility] [id number] 2023-Present [phone] [address] [place] [phone] [id number] [id number] [id number] [id number]jceyvXWS277H6289885-52-4593Bnmkgqa [id number] Health [id number]jc [id number] Social History DateTypeDetailFacilityStart: 07-18-2023 End: 78-66-6290Flzwijl smoking status NHISEx-smokerNOMS Healthcare End: 20-08-4917Tmbfiyk of tobacco useCurrent smokerNOMS Healthcare End: 75-85-9573Cjjlmfn of tobacco useCigarette SmokerNOMS HealthcareStart: 07-20-2023 End: 10-87-7477Ewqncoi intakeLifetime non-drinker (finding)[facility] HealthcareStart: 07-20-2023 End: 89-20-5244Gtxijsa of Social functionNOMS HealthcareStart: 07-20-2023 End: 48-88-2711Gjrkpnd use panelNOMS HealthcareStart: 29-96-4042Zvdszmj Comment caffeine: more than 4 cups per day ; sodaNOMS HealthcareStart: 82-66-3744Lah Assigned At BirthNot on fileNOMS HealthcareHistory of tobacco usePassive smoker [facility] HealthcareHow often do you need to have someone help you when you read instructions, pamphlets, or other written material from your doctor or pharmacy [SILS]NeverNOMS HealthcareWithin the last year, have you been afraid of your partner or ex-partner?NoNOMS HealthcareAre you now , , , , never or living with a partner?MarriedNOMS HealthcareHow often to you have a drink containing alcohol?Monthly or lessNOMS HealthcareHow many standard drinks containing alcohol do you have on a typical day?1 or 2NOMS HealthcareHow often do you have 6 or more drinks on 1 occasion?Less than monthly [facility] HealthcareHow hard is it for you to pay for the very basics like food, housing, medical care, and heatingNot hard at allSullivan County Memorial HospitalDo you feel stress - tense, restless, nervous, or anxious, or unable to sleep at night because yourmind is troubled all the time - these days [OSQ]Not at [facility](I/We) worried whether (my/our) food would run out before (I/we) got money to buy more.Never trueNOUniversity of Missouri Children's HospitalTobacco smoking status NHISUnknown if ever smokedSuburban Community Hospital & [facility] Work Phone: SexFemale (finding)[facility] Start: 35-09-3419Kxh Assigned At [facility] Medical Equipment Procedure CodeEquipment CodeEquipment Original TextEquipment IdentifierDates1 each by In Vitro route in the morning.[id number]: 07-20-2023 End: each in the morning.[id number]: 07-26-2023 End: 94-42-1453Ewbqh79135385Unghs: each [id number]: 10-30-2024 End: 02-07-2025 Functional Status VpjyHcaynldqwyUhplfeAgfluztn65-86-0225Iwjavkt Health Questionnaire 2 item (PHQ- 2) [Reported][facility] Clinical Notes 04-05-2021 to 02-18-2025 Note Date & YwtdBglbUbkrinfs51-48-1140 History of Present illness Narrative* Vaishali Zapata NP - 02/18/2025 9:15 AM EDTAssociated Problem(s): JAYSON (obstructive sleep apnea) Has not been on any PAP for several years Will order sleep study at [facility] * Vaishali Zapata NP - 02/18/2025 8:40 AM EDT Images from the original note were not included. Colette Angelo is a 54 y.o. female presents with chief complaint of Diabetes HPI: Hx of JAYSON: does not currently use machine, does not sleep well, tosses and turns, awakens fatigue, +loud snoring, occ nodding off in afternoon Diabetes She presents for her follow-up diabetic visit. She has type 2 diabetes mellitus. Her disease coursehas been improving. There are no hypoglycemic associated symptoms. Pertinent negatives for hypoglycemia include no dizziness, headaches, nervousness/anxiousness, seizures or tremors. Pertinent negatives for diabetes include no chest pain, no polydipsia, no polyphagia and no polyuria. There are no hypoglycemic complications. Symptoms are improving. Pertinent negatives for diabetic complications include no heart disease, nephropathy, peripheral neuropathy or PVD. Risk factors for coronary artery disease include diabetes mellitus, hypertension and obesity. Current diabetic treatment includes oral agent (dual therapy). Her overall blood glucose range is 110-130 mg/dl. An ANDRÉS inhibitor/angiotensin II receptor angelica is not being taken. Hypertension This is a chronic problem. The problem is unchanged. The problem is controlled. Pertinent negativesinclude no chest pain, headaches, orthopnea, palpitations, peripheral edema or shortness of breath.There are no associated agents to hypertension. Risk factors for coronary artery disease include diabetes mellitus, dyslipidemia and obesity. Past treatments include beta blockers. The current treatment provides significant improvement. There are no compliance problems. There is no history of CAD/OK, heart failure or PVD. SUBJECTIVE: MEDICATIONS: Current Outpatient Medications Medication Instructions atorvastatin (LIPITOR) 20 mg, Oral, Daily biotin 5 MG capsule 3 tablets, Daily RT Blood Glucose Monitoring Suppl (True Metrix Air Glucose Meter) w/Device kit 1 each, Does not apply,Daily carvedilol (COREG) 25 mg, Oral, 2 times daily with meals cetirizine (ZYRTEC) 10 mg, Oral, Daily PRN glipiZIDE XL (GLUCOTROL XL) 5 mg, Oral, Daily, Do not crush, chew, or split. glucose blood (True Metrix Blood Glucose Test) test strip Daily metFORMIN XR (GLUCOPHAGE-XR) 500 mg, Oral, Daily with breakfast, Do not crush, chew, or split. montelukast (SINGULAIR) 10 mg, Oral, Nightly omeprazole (PRILOSEC) 20 mg, Oral, Daily before breakfast, Do not crush or chew. Zepbound 7.5 mg, Subcutaneous, Every 7 days ALLERGIES: Allergies Allergen Reactions Augmentin [Amoxicillin-Pot Clavulanate] Bactrim [Sulfamethoxazole-Trimethoprim] REVIEW OF SYMPTOMS: Review of Systems Constitutional: Negative for appetite change, chills and fever. HENT: Negative for congestion, ear pain and sore throat. Eyes: Negative for pain, discharge, redness and visual disturbance. Respiratory: Negative for cough, shortness of breath and wheezing. Cardiovascular: Negative for chest pain, palpitations, orthopnea and leg swelling. Gastrointestinal: Negative for abdominal pain, blood in stool, constipation, diarrhea, nausea and vomiting. Genitourinary: Negative for difficulty urinating, dysuria and frequency. Musculoskeletal: Negative for arthralgias, back pain, joint swelling and myalgias. Skin: Negative for rash and wound. Neurological: Negative for dizziness, tremors, seizures, syncope and headaches. Psychiatric/Behavioral: Negative for behavioral problems, self-injury and suicidal ideas. The patient is not nervous/anxious. Hematological: Does not bruise/bleed easily. Endocrine: Negative for polydipsia, polyphagia and polyuria. Allergic/Immunologic: Negative for environmental allergies and food allergies. PAST MEDICAL HISTORY Past Medical History: Diagnosis Date Diabetes ([facility]) DM type 2 (diabetes mellitus, type 2) ([facility]) External hemorrhoids GERD (gastroesophageal reflux disease) Herpetic gingivostomatitis HLD (hyperlipidemia) On Lipitor Hypertension Non-recurrent acute suppurative otitis media of left ear without spontaneous rupture of tympanic membrane Reports feeling extremely tired and fatigued. All she wants to do is sleep. Her grand child recently had Strep throat. Denies fever but admits to report feeling cold. Denies N/V but had one episode of diarrhea. Also reports poor appetite. Her left ear today is feeling plugged and slightly painful .Exam c/w left otitis media, phayngitis Right hip pain Right hip pain Right hip pain x 2 days. Started after she fell at home on her right side. Able to ambulate but pain is persistent, worse when she has to get up from seated position. Improving but still quite uncomfortable for hr Seasonal allergies Sleep apnea wears cpap Viral upper respiratory tract infection with cough Past Surgical History: Procedure Laterality Date CHOLECYSTECTOMY 1992 CHOLECYSTECTOMY 10/15/2007 Lap Cholecystectomy family history includes Cancer in her father and paternal grandmother; Diabetes in her mother; Hyperlipidemia in her mother; Hypertension in her father and mother; Prostate cancer in her father. OBJECTIVE: Visit Vitals BP 118/80 (BP Location: Left arm, Patient Position: Sitting, BP Cuff Size: Large adult) Pulse 70 Temp 98.5 F (Temporal) Resp 18 Wt 242 lb 3.2 oz SpO2 97% BMI 42.90 kg/m Smoking Status Former BSA 2.21 m Physical Exam Vitals and nursing note reviewed. Constitutional: General: She is not in acute distress. Appearance: Normal appearance. HENT: Head: Normocephalic and atraumatic. Right Ear: External ear normal. Left Ear: External ear normal. Nose: Nose normal. Mouth/Throat: Mouth: Mucous membranes are moist. Eyes: Extraocular Movements: Extraocular movements intact. Conjunctiva/sclera: Conjunctivae normal. Cardiovascular: Rate and Rhythm: Normal rate and regular rhythm. Pulses: Normal pulses. Heart sounds: Normal heart sounds. No murmur heard. Pulmonary: Effort: Pulmonary effort is normal. Breath sounds: Normal breath sounds. No wheezing. Abdominal: General: Bowel sounds are normal. There is no distension. Palpations: Abdomen is soft. There is no mass. Tenderness: There is no abdominal tenderness. Musculoskeletal: General: Normal range of motion. Cervical back: Normal range of motion and neck supple. Right lower leg: No edema. Left lower leg: No edema. Skin: General: Skin is warm and dry. Capillary Refill: Capillary refill takes 2 to 3 seconds. Findings: No rash. Neurological: General: No focal deficit present. Mental Status: She is alert and oriented to person, place, and time. Psychiatric: Mood and Affect: Mood normal. Behavior: Behavior normal. Thought Content: Thought content normal. Judgment: Judgment normal. ASSESSMENT AND PLAN: No follow-ups on file. Problem List Items Addressed This Visit Essential hypertension Please check blood pressure daily and record DASH diet Limit caffeine Take medication as directed Contact office if chest pain, pressure, dizziness, shortness of breath, swelling legs Recommend slow position changes Current meds: b angelica Type 2 diabetes mellitus without complication, without long-term current use of insulin ([facility]) - Primary Check blood sugars daily, notify if <70 or >200. Take medications (pills or insulin) as directed. Monitor for s/s of hypoglycemia (sweaty, dizziness, nausea, vomiting, or shakiness). Watch for increase in thirst, urination, or appetite. Inspect feet frequently monitoring for open wounds , andalso recommend yearly eye exam. Pt should attempt to remain as physically active as chronic conditions allow, as well as trying to follow a diet low in carbohydrates, and simple sugars. Current meds: statin, b angelica, glipizide XL, zepbound A1c: 5.5% 02/18/25, 6.7% 10/30/24 I am adding the medication zepbound (tirzepatide) for treatment of the patient's Type 2 diabetes, it is not being prescribed for obesity management. Pt's insurance company will not pay for mounjaro for DM, but will for zepbound. Will increase dose to 7.5mg weekly Relevant Medications Tirzepatide-Weight Management (Zepbound) 7.5 MG/0.5ML solution auto-injector Other Relevant Orders POCT glycosylated hemoglobin (Hb A1C) docked device (Completed) Gastroesophageal reflux disease Recommendations: freq small meals, nothing to eat or drink at least 2 hours prior to bed, limit caffeine, alcohol, as well as spicy foods Meds to limit or avoid if possible: NSAIDS Elevate HOB if possible Current meds: omeprazole Morbid (severe) obesity due to excess calories ([facility]) Discussed with patient their BMI (actual, verses recommended). We have also discussed lifestyle modifications: attempts to perform physical activity as chronic conditions allow, also to monitor dietary intake: increasing protein/fruits/veggies and lowering carb intake (unless contraindicated). Limit sodas, juices, and sugary drinks. Is being prescribed Zepbound for her diabetes Relevant Medications Tirzepatide-Weight Management (Zepbound) 7.5 MG/0.5ML solution auto-injector JAYSON (obstructive sleep apnea) Has not been on any PAP for several years Will order sleep study at [facility] Relevant Medications Tirzepatide-Weight Management (Zepbound) 7.5 MG/0.5ML solution auto-injector * Vaishali Zapata NP - 02/18/2025 6:21 AM EDTAssociated Problem(s): Morbid (severe) obesity due to excess calories ([facility]) Discussed with patient their BMI (actual, verses recommended). We have also discussed lifestyle modifications: attempts to perform physical activity as chronic conditions allow, also to monitor dietary intake: increasing protein/fruits/veggies and lowering carb intake (unless contraindicated). Limit sodas, juices, and sugary drinks. Is being prescribed Zepbound for her diabetes * Vaishali Zapata NP - 02/18/2025 6:20 AM EDTAssociated Problem(s): Type 2 diabetes mellitus without complication, without long-term current useof insulin ([facility]) Check blood sugars daily, notify if <70 or >200. Take medications (pills or insulin) as directed. Monitor for s/s of hypoglycemia (sweaty, dizziness, nausea, vomiting, or shakiness). Watch for increase in thirst, urination, or appetite. Inspect feet frequently monitoring for open wounds , andalso recommend yearly eye exam. Pt should attempt to remain as physically active as chronic conditions allow, as well as trying to follow a diet low in carbohydrates, and simple sugars. Current meds: statin, b angelica, glipizide XL, zepbound A1c: 5.5% 02/18/25, 6.7% 10/30/24 I am adding the medication zepbound (tirzepatide) for treatment of the patient's Type 2 diabetes, it is not being prescribed for obesity management. Pt's insurance company will not pay for mounjaro for DM, but will for zepbound. Will increase dose to 7.5mg weekly * Vaishali Zapata NP - 02/18/2025 6:19 AM EDTAssociated Problem(s): Gastroesophageal reflux disease Recommendations: freq small meals, nothing to eat or drink at least 2 hours prior to bed, limit caffeine, alcohol, as well as spicy foods Meds to limit or avoid if possible: NSAIDS Elevate HOB if possible Current meds: omeprazole * Vaishali Zapata NP - 02/18/2025 6:19 AM EDTAssociated Problem(s): Essential hypertension Please check blood pressure daily and record DASH diet Limit caffeine Take medication as directed Contact office if chest pain, pressure, dizziness, shortness of breath, swelling legs Recommend slow position changes Current meds: b angelica [facility] [id number] Instructions* Patient Instructions* Vaishali Zapata NP - 02/18/2025 8:40 AM EDT We will fax order to [facility] sleep lab, they should call you Increase zepbound to 7.5mg once a week Also need to schedule a PAP smear documented in this encounterS[facility] [id number] History of Present illness Narrative* RACHEL MCCLAIN - 10/30/2024 2:40 PM EDT 12/11/2023-last office visit Hypertension: Checks BP here and there; its been a couple weeks it was 122/76 Diabetes: Glucose meter lost Never checked it daily-couple times a week Checks them at work had 132 as her fasting No complaints of increased urination or increased thirst Would like to discuss weight loss medication she did adipex in the past however she would like to discuss zepbound Pt would like to get back on metformin instead of glipizide and get on omeprazole for acid reflex again Pt also has deep wet cough * Vaishali Zapata NP - 10/30/2024 2:40 PM EDT Images from the original note were not included. ] Colette Angelo is a 54 y.o. female presents with chief complaint of No chief complaint on file. HPI: Diet: fairly Activity: yes Mental Health Concerns: none Falls in the last year: yes Any hearing problems:no Any Vision problems: no Any Hospitalizations in the last year: no Specialist: no Hypertension This is a chronic problem. The current episode started more than 1 year ago. The problem is unchanged. The problem is controlled. Pertinent negatives include no blurred vision, chest pain, headaches,palpitations, peripheral edema or shortness of breath. Risk factors for coronary artery disease include dyslipidemia, diabetes mellitus, obesity, sedentary lifestyle and post- menopausal state. Past treatments include beta blockers. The current treatment provides significant improvement. There are no compliance problems. There is no history of kidney disease, CAD/OK, heart failure or PVD. Diabetes She presents for her follow-up diabetic visit. She has type 2 diabetes mellitus. Her disease coursehas been fluctuating. There are no hypoglycemic associated symptoms. Pertinent negatives for hypoglycemia include no dizziness, headaches, nervousness/anxiousness, seizures or tremors. Associated symptoms include foot paresthesias. Pertinent negatives for diabetes include no blurred vision, no chest pain, no polydipsia, no polyphagia, no polyuria and no visual change. There are no hypoglycemic complications. Diabetic complications include peripheral neuropathy. Pertinent negatives for diabetic complications include no heart disease, impotence, nephropathy or PVD. Risk factors for coronary artery disease include diabetes mellitus, dyslipidemia, hypertension, sedentary lifestyle, post-menopausal and obesity. Current diabetic treatment includes oral agent (monotherapy). An ANDRÉS inhibitor/angiotensin II receptor angelica is not being taken. Eye exam is current. SUBJECTIVE: MEDICATIONS: Current Outpatient Medications Medication Instructions atorvastatin (LIPITOR) 20 mg, Oral, Daily biotin 5 MG capsule 3 tablets, Daily RT carvedilol (COREG) 25 mg, Oral, 2 times daily with meals cetirizine (ZYRTEC) 10 mg, Daily glipiZIDE XL (GLUCOTROL XL) 5 mg, Oral, Daily, Do not crush, chew, or split. metFORMIN XR (GLUCOPHAGE-XR) 500 mg, Oral, Daily with breakfast, Do not crush, chew, or split. montelukast (SINGULAIR) 10 mg, Oral, Nightly omeprazole (PRILOSEC) 20 mg, Oral, Daily before breakfast, Do not crush or chew. ALLERGIES: Allergies Allergen Reactions Augmentin [Amoxicillin-Pot Clavulanate] Bactrim [Sulfamethoxazole-Trimethoprim] REVIEW OF SYMPTOMS: Review of Systems Constitutional: Negative for appetite change, chills and fever. HENT: Negative for congestion, ear pain and sore throat. Eyes: Negative for blurred vision, pain, discharge, redness and visual disturbance. Respiratory: Negative for cough, shortness of breath and wheezing. Cardiovascular: Negative for chest pain, palpitations and leg swelling. Gastrointestinal: Negative for abdominal pain, blood in stool, constipation, diarrhea, nausea and vomiting. Genitourinary: Negative for difficulty urinating, dysuria, frequency and impotence. Musculoskeletal: Negative for arthralgias, back pain, joint swelling and myalgias. Skin: Negative for rash and wound. Neurological: Negative for dizziness, tremors, seizures, syncope and headaches. Psychiatric/Behavioral: Negative for behavioral problems, self-injury and suicidal ideas. The patient is not nervous/anxious. Hematological: Does not bruise/bleed easily. Endocrine: Negative for polydipsia, polyphagia and polyuria. Allergic/Immunologic: Negative for environmental allergies and food allergies. PAST MEDICAL HISTORY Past Medical History: Diagnosis Date Diabetes ([facility]) DM type 2 (diabetes mellitus, type 2) ([facility]) External hemorrhoids GERD (gastroesophageal reflux disease) Herpetic gingivostomatitis HLD (hyperlipidemia) ([facility]) On Lipitor Hypertension ([facility]) Non-recurrent acute suppurative otitis media of left ear without spontaneous rupture of tympanic membrane Reports feeling extremely tired and fatigued. All she wants to do is sleep. Her grand child recently had Strep throat. Denies fever but admits to report feeling cold. Denies N/V but had one episode of diarrhea. Also reports poor appetite. Her left ear today is feeling plugged and slightly painful .Exam c/w left otitis media, phayngitis Right hip pain Right hip pain Right hip pain x 2 days. Started after she fell at home on her right side. Able to ambulate but pain is persistent, worse when she has to get up from seated position. Improving but still quite uncomfortable for hr Seasonal allergies Sleep apnea wears cpap Viral upper respiratory tract infection with cough Past Surgical History: Procedure Laterality Date CHOLECYSTECTOMY 1992 CHOLECYSTECTOMY 10/15/2007 Lap Cholecystectomy family history includes Cancer in her father and paternal grandmother; Diabetes in her mother; Hyperlipidemia in her mother; Hypertension in her father and mother; Prostate cancer in her father. OBJECTIVE: Visit Vitals BP 128/90 (BP Location: Left arm, Patient Position: Sitting, BP Cuff Size: Adult long) Pulse 90 Temp 98 F (Temporal) Resp 20 Wt 257 lb SpO2 97% BMI 45.53 kg/m Smoking Status Former BSA 2.28 m Physical Exam Vitals and nursing note reviewed. Constitutional: General: She is not in acute distress. Appearance: Normal appearance. HENT: Head: Normocephalic and atraumatic. Right Ear: External ear normal. Left Ear: External ear normal. Nose: Nose normal. Mouth/Throat: Mouth: Mucous membranes are moist. Eyes: Extraocular Movements: Extraocular movements intact. Conjunctiva/sclera: Conjunctivae normal. Neck: Vascular: No carotid bruit. Cardiovascular: Rate and Rhythm: Normal rate and regular rhythm. Pulses: Normal pulses. Heart sounds: Normal heart sounds. No murmur heard. Pulmonary: Effort: Pulmonary effort is normal. Breath sounds: Normal breath sounds. No wheezing or rhonchi. Abdominal: General: Bowel sounds are normal. There is no distension. Palpations: Abdomen is soft. There is no mass. Tenderness: There is no abdominal tenderness. Musculoskeletal: General: Normal range of motion. Cervical back: Normal range of motion and neck supple. Right lower leg: No edema. Left lower leg: No edema. Lymphadenopathy: Cervical: No cervical adenopathy. Skin: General: Skin is warm and dry. Capillary Refill: Capillary refill takes 2 to 3 seconds. Findings: No rash. Neurological: General: No focal deficit present. Mental Status: She is alert and oriented to person, place, and time. Psychiatric: Mood and Affect: Mood normal. Behavior: Behavior normal. Thought Content: Thought content normal. Judgment: Judgment normal. ASSESSMENT AND PLAN: No follow-ups on file. Problem List Items Addressed This Visit Essential hypertension ([facility]) - Primary Please check blood pressure daily and record DASH diet Limit caffeine Take medication as directed Contact office if chest pain, pressure, dizziness, shortness of breath, swelling legs Recommend slow position changes Current meds: b blcoker Relevant Orders Microalbumin / creatinine, urine ratio Type 2 diabetes mellitus without complication, without long-term current use of insulin Check blood sugars daily, notify if <70 or >200. Take medications (pills or insulin) as directed. Monitor for s/s of hypoglycemia (sweaty, dizziness, nausea, vomiting, or shakiness). Watch for increase in thirst, urination, or appetite. Inspect feet frequently monitoring for open wounds , andalso recommend yearly eye exam. Pt should attempt to remain as physically active as chronic conditions allow, as well as trying to follow a diet low in carbohydrates, and simple sugars. Current meds: statin, b angelica, glipizide XL A1c: 6.7% Relevant Medications metFORMIN XR (Glucophage-XR) 500 MG 24 hr tablet Other Relevant Orders POCT glycosylated hemoglobin (Hb A1C) docked device (Completed) Microalbumin / creatinine, urine ratio Gastroesophageal reflux disease Recommendations: freq small meals, nothing to eat or drink at least 2 hours prior to bed, limit caffeine, alcohol, as well as spicy foods Meds to limit or avoid if possible: NSAIDS Elevate HOB if possible Current meds: omeprazole Relevant Medications omeprazole (PriLOSEC) [address] capsule Screening mammogram, encounter for Relevant Orders Bilateral screening mammogram Morbid (severe) obesity due to excess calories ([facility]) Discussed with patient their BMI (actual, verses recommended). We have also discussed lifestyle modifications: attempts to perform physical activity as chronic conditions allow, also to monitor dietary intake: increasing protein/fruits/veggies and lowering carb intake (unless contraindicated). Limit sodas, juices, and sugary drinks. Also discussed oral medications that can be utilized for weight loss, as well as surgical options for weight loss. Body mass index (BMI) 40.0-44.9, adult ([facility]) Mixed hyperlipidemia ([facility]) On statin therapy Check labs yearly and prn dose change Encounter for adult wellness visit Reviewed Ht/Wt/BMI Recommend eye exam yearly Recommend dental exams twice a year Balance work/leisure activities Exercises is recommended most days of the week (appropriate as chronic conditions allow) Follow up yearly and prn Relevant Orders CBC and differential Comprehensive metabolic panel Lipid panel Urinalysis with reflex microscopic (clean catch) Microalbumin / creatinine, urine ratio TSH Other Visit Diagnoses Non-seasonal allergic rhinitis, unspecified trigger Relevant Medications montelukast (Singulair) 10 MG tablet Hyperlipidemia, unspecified hyperlipidemia type ([facility]) Relevant Medications atorvastatin (Lipitor) 20 MG tablet Primary hypertension ([facility]) Relevant Medications carvedilol (Coreg) 25 MG tablet * Vaishali Zapata NP - 10/30/2024 7:20 AM EDTAssociated Problem(s): Encounter for adult wellness visit Reviewed Ht/Wt/BMI Recommend eye exam yearly Recommend dental exams twice a year Balance work/leisure activities Exercises is recommended most days of the week (appropriate as chronic conditions allow) Follow up yearly and prn * Vaishali Zapata NP - 10/30/2024 7:19 AM EDTAssociated Problem(s): Mixed hyperlipidemia ([facility]) On statin therapy Check labs yearly and prn dose change * Vaishali Zapata NP - 10/30/2024 7:19 AM EDTAssociated Problem(s): Type 2 diabetes mellitus without complication, without long-term current useof insulin Check blood sugars daily, notify if <70 or >200. Take medications (pills or insulin) as directed. Monitor for s/s of hypoglycemia (sweaty, dizziness, nausea, vomiting, or shakiness). Watch for increase in thirst, urination, or appetite. Inspect feet frequently monitoring for open wounds , andalso recommend yearly eye exam. Pt should attempt to remain as physically active as chronic conditions allow, as well as trying to follow a diet low in carbohydrates, and simple sugars. Current meds: statin, b angelica, glipizide XL A1c: 6.7% * Vaishali Zapata NP - 10/30/2024 7:18 AM EDTAssociated Problem(s): Morbid (severe) obesity due to excess calories ([facility]CC) Discussed with patient their BMI (actual, verses recommended). We have also discussed lifestyle modifications: attempts to perform physical activity as chronic conditions allow, also to monitor dietary intake: increasing protein/fruits/veggies and lowering carb intake (unless contraindicated). Limit sodas, juices, and sugary drinks. Also discussed oral medications that can be utilized for weight loss, as well as surgical options for weight loss. * Vaishali Zapata NP - 10/30/2024 7:18 AM EDTAssociated Problem(s): Gastroesophageal reflux disease Recommendations: freq small meals, nothing to eat or drink at least 2 hours prior to bed, limit caffeine, alcohol, as well as spicy foods Meds to limit or avoid if possible: NSAIDS Elevate HOB if possible Current meds: omeprazole * Vaishali Zapata NP - 10/30/2024 7:17 AM EDTAssociated Problem(s): Essential hypertension (CMS/HCC) Please check blood pressure daily and record DASH diet Limit caffeine Take medication as directed Contact office if chest pain, pressure, dizziness, shortness of breath, swelling legs Recommend slow position changes Current meds: b blcoker documented in this [facility]04-23-2025 Instructions* Patient Instructions* Vaishali Zapata NP - 10/30/2024 2:40 PM EDT Labs mammogram documented in this [facility]01-25-2022 Note From: Colette Angelo LPN ([facility] (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 SOFTWARE DEVELOPMENT ENGINEER Subject: Medication Management Due: August 04, 2021 12:07:16 AM ASSOCIATE SOFTWARE DEVELOPMENT ENGINEER On Hold Pending Signature Drug: semaglutide (Rybelsus [...] From: Vaishali Perez To: [facility] Sent: 08/03/2021 11:46:15 EST Subject: Medication Management Submitted: Complete:semaglutide (Rybelsus 7 mg oral tablet) Signed by Vaishali Perez 08/03/2021 11:46:00 EST Approved semaglutide (RYBELSUS 7MG) TAKE 1 TABLET BY MOUTH ONCE DAILY Qty: 30 tab(s) Days Supply: 60 Refills: 0 Substitutions Allowed Route To Pharmacy - [facility] Note from Pharmacy: Patient is requesting refills, Thank you 08/03/2021 11:10:51 AM From: Vaishali Perez To: [facility] ([facility]); Sent: 08/03/2021 11:47:28 EST Subject: RE: Medication Management medicine sent to pharmacy - please re-schedule diabetes check-up in next 1-2 weeks From: Colette Angelo LPN ([facility] ([facility])) To: Vaughn Smith; Sent: 08/03/2021 11:53:02 EST Subject: FW: Medication Management Can you please schedule?? From: Vaughn Smith To: [facility] ([facility]); Sent: 08/03/2021 13:09:50 EST Subject: RE: Medication Management Pt is scheduled MondayAugust 11 at 4pm![id number] Note From: Colette Angelo LPN ([facility] ([facility])) To: Vaishali Perez; Sent: 07/05/2021 08:39:56 EST Subject: FW: Medication Management Due Date/Time: 07/06/2021 08:25:00 EST From: [facility] To: Vaishali Perez CNP Sent: July 05, 2021 7:25:23 AM ASSOCIATE SOFTWARE DEVELOPMENT ENGINEER Subject: Medication Management Due: July 06, 2021 12:08:22 AM ASSOCIATE SOFTWARE DEVELOPMENT ENGINEER On Hold Pending Signature Drug: semaglutide (Rybelsus [...] From: Vaishali Perez To: [facility] Sent: 07/05/2021 09:03:52 EST Subject: FW: [...] Route To Pharmacy - [facility] Note from Pharmacy: Patient is requesting refills, Thank you 07/05/2021 8:19:07 AM Approved esomeprazole (ESOMEPRA MAG 20MG DR) TAKE 1 CAPSULE BY MOUTH ONCE DAILY Qty: 90 cap(s) Days Supply: 90 Refills: 0 Substitutions Allowed Route To Pharmacy - [facility] Note from Pharmacy: Patient is requesting refills, thank you 07/05/2021 8:18:49 AM From: Vaishali Perez To: [facility] ([facility]); Sent: 07/05/2021 09:06:10 EST Subject: RE: Medication Management These meds were filled today - need to schedule diabetes check-up this month [id number] Note From: Colette Angelo LPN ([facility] ([facility])) To: Vaishali Perez; Sent: 05/12/2021 13:13:42 EDT Subject: FW: Medication Management Due Date/Time: 05/13/2021 12:56:00 EDT From: [facility] To: Vaishali Perez [employer] Sent: May 12, 2021 11:56:35 AM CDT [...] From: Vaishali Perez To: [facility] Sent: 05/12/2021 13:16:51 EDT Subject: FW: [...] Route To Pharmacy - [facility] Note from Pharmacy: pt requesting refills 05/12/2021 12:54:46 PM From: Vaishali Perez To: [facility] ([facility]); Sent: 05/12/2021 13:17:03 EDT Subject: RE: Medication Management medicine [facility]10-06-2021 Note From: Colette Angelo LPNFederico Clinical Pool ([facility])) To: Vaishali Perez; Sent: 04/13/2021 12:00:13 EDT Subject: FW: Medication Management Due Date/Time: 04/14/2021 11:50:00 EDT From: [facility] To: Vaishali Perez CNP Sent: April [...] TAKE 1 TABLET BY MOUTH TWICE DAILY FOR24 HOURS FOR RECURRENT COLD SORE Quantity: 4 [...] TAKE 1 TABLET BY MOUTH TWICE DAILY FOR24 HOURS FOR RECURRENT COLD SORE Quantity: 4 tab(s) Days Supply: 2 Refills: 0 Substitutions Allowed Notes from Pharmacy: Patient is requesting refills, Thank you 04/13/2021 11:49:23 AM From: Vaishali Perez To: [facility] Sent: 04/14/2021 08:21:26 EDT Subject: FW: Medication Management Submitted: Complete:valACYclovir (Valtrex 1 g oral tablet) Signed by Vaishali Perez 04/14/2021 08:21:00 EDT Approved valACYclovir (VALACYCLOVIR 1GM) TAKE 1 TABLET BY MOUTH TWICE DAILY FOR 24 HOURS FOR RECURRENT COLD SORE Qty: 4 tab(s) Days Supply: 2 Refills: 0 Substitutions Allowed Route To Pharmacy - [facility] Note from Pharmacy: Patient is requesting refills, Thank you 04/13/2021 11:49:23 AM Approved valACYclovir (VALACYCLOVIR 1GM) TAKE 1 TABLET BY MOUTH TWICE DAILY FOR 24 HOURS FOR RECURRENT COLD SORE Qty: 4 tab(s) Days Supply: 2 Refills: 0 Substitutions Allowed Route To Pharmacy - [facility] Note from Pharmacy: Patient is requesting refills, Thank you 04/13/2021 11:49:23 [facility]10-05-2021 Note From: Colette Angelo LPN ([facility] ([facility])) To: [facility] ([facility]); Sent: 04/13/2021 08:08:18 EDT Subject: FW: Medication Management Due Date/Time: 04/13/2021 14:59:00 EDT From: [facility] To: Vaishali Perez CNP Sent: April 12, 2021 1:59:35 PM CDT Subject: Medication Management Due: April 13, 2021 12:09:37 AM CDT On Hold Pending Signature Drug: fluticasone nasal (fluticasone 50 mcg/inh nasal spray), PLACE 2 SPRAYS INTO EACH NOSTRIL ONCEDAILY Quantity: 16 gm Days Supply: 30 Refills: [...] mg oral tablet, extended release), TAKE 1 TABLETBY MOUTH ONCE DAILY WITH EVENING MEAL Quantity: [...] HFA) 90 mcg/inh inhalation aerosol), INHALE 1 PUFFBY MOUTH EVERY SIX HOURS NEEDED FOR WHEEZING [...] From: Lacey Grossman To: [facility] Sent: 04/13/2021 08:15:14 EDT Subject: FW: [...] by Lacey Grossman 04/13 (more content not included)...[facility] 04-05-2021 NoteNasal swab performed without complication. Patient tolerated well. Education given. Patient verbalized understanding. [Electronically Signed on: 04/05/2021 15:02 EDT] Tae October [place] [Verified on: 04/05/2021 15:02 EDT] TaeOctober [facility] Hospital[facility]* Diagnosis Type 2 diabetes mellitus without complication, without long-term current use of insulin (CMS/HCC)- Primary documented in this encounter [facility]* Diagnosis Essential hypertension (CMS/HCC)- Primary Unspecified essential hypertension Gastroesophageal reflux disease without esophagitis Esophageal reflux Type 2 diabetes mellitus without complication, without long-term current use of insulin (CMS/HCC) Annual physical exam Routine general medical examination at a health care facility Screening mammogram, encounter for Other hyperlipidemia (CMS/HCC) Screening for malignant neoplasm of colon Primary hypertension (CMS/HCC)- Primary Unspecified essential hypertension Type 2 diabetes mellitus without complication, without long-term current use of insulin (CMS/HCC) Hyperlipidemia, unspecified hyperlipidemia type (CMS/HCC) Gastroesophageal reflux disease without esophagitis Esophageal reflux Type 2 diabetes mellitus without complication, without long-term current use of insulin (CMS/HCC)- Primary Type 2 diabetes mellitus without complication, without long-term current use of insulin (CMS/HCC) Primary hypertension (CMS/HCC) Unspecified essential hypertension documented in this encounter [facility] HealthcareEvaluation note* Diagnosis Essential hypertension (CMS/HCC)- Primary Unspecified essential hypertension Gastroesophageal reflux disease without esophagitis Esophageal reflux Type 2 diabetes mellitus without complication, without long-term current use of insulin Annual physical exam Routine general medical examination at a [facility] Screening mammogram, encounter for Other hyperlipidemia Screening for malignant neoplasm of colon Primary hypertension (CMS/HCC)- Primary Unspecified essential hypertension Type 2 diabetes mellitus without complication, without long-term current use of insulin Hyperlipidemia, unspecified hyperlipidemia type (CMS/HCC) Gastroesophageal reflux disease without esophagitis Esophageal reflux Type 2 diabetes mellitus without complication, without long-term current use of insulin- Primary Encounter for adult wellness visit- Primary Morbid (severe) obesity due to excess calories (CMS/HCC) Essential hypertension ([facility]/HCC) Unspecified essential hypertension Gastroesophageal reflux disease without esophagitis Esophageal reflux Body mass index (BMI) 40.0-44.9, adult ([facility]) Type 2 diabetes mellitus without complication, without long-term current use of insulin Mixed hyperlipidemia ([facility]) Mixed hyperlipidemia Screening mammogram, encounter for Non-seasonal allergic rhinitis, unspecified trigger Hyperlipidemia, unspecified hyperlipidemia type (CMS/HCC) Primary hypertension ([facility]/HCC) Unspecified essential hypertension documented in this encounter [facility] HealthcareEvaluation note* Diagnosis Essential hypertension (CMS/HCC)- Primary Unspecified essential hypertension Gastroesophageal reflux disease without esophagitis Esophageal reflux Type 2 diabetes mellitus without complication, without long-term current use of insulin Annual physical exam Routine general medical examination at a [facility] facility Screening mammogram, encounter for Other hyperlipidemia Screening for malignant neoplasm of colon Primary hypertension (CMS/HCC)- Primary Unspecified essential hypertension Type 2 diabetes mellitus without complication, without long-term current use of insulin Hyperlipidemia, unspecified hyperlipidemia type (CMS/HCC) Gastroesophageal reflux disease without esophagitis Esophageal reflux Type 2 diabetes mellitus without complication, without long-term current use of insulin- Primary Encounter for adult wellness visit- Primary Morbid (severe) obesity due to excess calories (CMS/HCC) Essential hypertension (CMS/HCC) Unspecified essential hypertension Gastroesophageal reflux disease without esophagitis Esophageal reflux Body mass index (BMI) 40.0-44.9, adult ([facility]/HCC) Type 2 diabetes mellitus without complication, without long-term current use of insulin Mixed hyperlipidemia (CMS/HCC) Mixed hyperlipidemia Screening mammogram, encounter for Non-seasonal allergic rhinitis, unspecified trigger Hyperlipidemia, unspecified hyperlipidemia type (CMS/HCC) Primary hypertension (CMS/HCC) Unspecified essential hypertension Environmental and seasonal allergies- Primary documented in this encounter [facility] HealthcareEvaluation note* Diagnosis Essential hypertension (CMS/HCC)- Primary Unspecified essential hypertension Gastroesophageal reflux disease without esophagitis Esophageal reflux Type 2 diabetes mellitus without complication, without long-term current use of insulin Annual physical exam Routine general medical examination at a [facility] Screening mammogram, encounter for Other hyperlipidemia Screening for malignant neoplasm of colon Primary hypertension ([facility]/HCC)- Primary Unspecified essential hypertension Type 2 diabetes mellitus without complication, without long-term current use of insulin Hyperlipidemia, unspecified hyperlipidemia type (CMS/HCC) Gastroesophageal reflux disease without esophagitis Esophageal reflux Type 2 diabetes mellitus without complication, without long-term current use of insulin- Primary Encounter for adult wellness visit- Primary Morbid (severe) obesity due to excess calories ([facility]) Essential hypertension ([facility]/HCC) Unspecified essential hypertension Gastroesophageal reflux disease without esophagitis Esophageal reflux Body mass index (BMI) 40.0-44.9, adult ([facility]) Type 2 diabetes mellitus without complication, without long-term current use of insulin Mixed hyperlipidemia ([facility]/HCC) Mixed hyperlipidemia Screening mammogram, encounter for Non-seasonal allergic rhinitis, unspecified trigger Hyperlipidemia, unspecified hyperlipidemia type (CMS/HCC) Primary hypertension (CMS/HCC) Unspecified essential hypertension Hyperlipidemia, unspecified hyperlipidemia type ([facility]/HCC) Primary hypertension (CMS/HCC) Unspecified essential hypertension Environmental and seasonal allergies Type 2 diabetes mellitus without complication, without long-term current use of insulin Non-seasonal allergic rhinitis, unspecified trigger Gastroesophageal reflux disease without esophagitis Esophageal reflux Morbid (severe) obesity due to excess calories ([facility]/HCC) Body mass index (BMI) 40.0-44.9, adult ([facility]) documented in this encounter [facility] HealthcareEvaluation note* Diagnosis Essential hypertension- Primary Unspecified essential hypertension Gastroesophageal reflux disease without esophagitis Esophageal reflux Type 2 diabetes mellitus without complication, without long-term current use of insulin (HCC) Annual physical exam Routine general medical examination at a health care facility Screening mammogram, encounter for Other hyperlipidemia Screening for malignant neoplasm of colon Primary hypertension- Primary Unspecified essential hypertension Type 2 diabetes mellitus without complication, without long-term current use of insulin (HCC) Hyperlipidemia, unspecified hyperlipidemia type Gastroesophageal reflux disease without esophagitis Esophageal reflux Type 2 diabetes mellitus without complication, without long-term current use of insulin (HCC)- Primary Encounter for adult wellness visit- Primary Morbid (severe) obesity due to excess calories (CMS-HCC) Essential hypertension Unspecified essential hypertension Gastroesophageal reflux disease without esophagitis Esophageal reflux Body mass index (BMI) 40.0-44.9, adult (CMS-HCC) Type 2 diabetes mellitus without complication, without long-term current use of insulin (HCC) Mixed hyperlipidemia Mixed hyperlipidemia Screening mammogram, encounter for Non-seasonal allergic rhinitis, unspecified trigger Hyperlipidemia, unspecified hyperlipidemia type Primary hypertension Unspecified essential hypertension Type 2 diabetes mellitus without complication, without long-term current use of insulin (HCC) Morbid (severe) obesity due to excess calories (CMS-HCC) documented in this encounter [facility] HealthcareEvaluation note* Diagnosis Essential hypertension- Primary Unspecified essential hypertension Gastroesophageal reflux disease without esophagitis Esophageal reflux Type 2 diabetes mellitus without complication, without long-term current use of insulin (HCC) Annual physical exam Routine general medical examination at a health care facility Screening mammogram, encounter for Other hyperlipidemia Screening for malignant neoplasm of colon Primary hypertension- Primary Unspecified essential hypertension Type 2 diabetes mellitus without complication, without long-term current use of insulin (HCC) Hyperlipidemia, unspecified hyperlipidemia type Gastroesophageal reflux disease without esophagitis Esophageal reflux Type 2 diabetes mellitus without complication, without long-term current use of insulin (HCC)- Primary Encounter for adult wellness visit- Primary Morbid (severe) obesity due to excess calories (CMS-HCC) Essential hypertension Unspecified essential hypertension Gastroesophageal reflux disease without esophagitis Esophageal reflux Body mass index (BMI) 40.0-44.9, adult (CMS-HCC) Type 2 diabetes mellitus without complication, without long-term current use of insulin (HCC) Mixed hyperlipidemia Mixed hyperlipidemia Screening mammogram, encounter for Non-seasonal allergic rhinitis, unspecified trigger Hyperlipidemia, unspecified hyperlipidemia type Primary hypertension Unspecified essential hypertension Type 2 diabetes mellitus without complication, without long-term current use of insulin (HCC)- Primary Gastroesophageal reflux disease without esophagitis Esophageal reflux Essential hypertension Unspecified essential hypertension Morbid (severe) obesity due to excess calories (CMS-HCC) JAYSON (obstructive sleep apnea) Obstructive sleep apnea (adult) (pediatric) documented in this encounter [facility] HealthcareEvaluation note* Diagnosis Essential hypertension- Primary Unspecified essential hypertension Gastroesophageal reflux disease without esophagitis Esophageal reflux Type 2 diabetes mellitus without complication, without long-term current use of insulin (HCC) Annual physical exam Routine general medical examination at a [facility] Screening mammogram, encounter for Other hyperlipidemia Screening for malignant neoplasm of colon Primary hypertension- Primary Unspecified essential hypertension Type 2 diabetes mellitus without complication, without long-term current use of insulin (HCC) Hyperlipidemia, unspecified hyperlipidemia type Gastroesophageal reflux disease without esophagitis Esophageal reflux Type 2 diabetes mellitus without complication, without long-term current use of insulin (HCC)- Primary Encounter for adult wellness visit- Primary Morbid (severe) obesity due to excess calories (CMS-HCC) Essential hypertension Unspecified essential hypertension Gastroesophageal reflux disease without esophagitis Esophageal reflux Body mass index (BMI) 40.0-44.9, adult (CMS-HCC) Type 2 diabetes mellitus without complication, without long-term current use of insulin (HCC) Mixed hyperlipidemia Mixed hyperlipidemia Screening mammogram, encounter for Non-seasonal allergic rhinitis, unspecified trigger Hyperlipidemia, unspecified hyperlipidemia type Primary hypertension Unspecified essential hypertension Type 2 diabetes mellitus without complication, without long-term current use of insulin (HCC)- Primary Gastroesophageal reflux disease without esophagitis Esophageal reflux Essential hypertension Unspecified essential hypertension Morbid (severe) obesity due to excess calories (CMS-HCC) JAYSON (obstructive sleep apnea) Obstructive sleep apnea (adult) (pediatric) Type 2 diabetes mellitus without complication, without long-term current use of insulin (HCC)- Primary documented in this encounter [facility] HealthcareEvaluation note* Diagnosis Onset Date Resolution Status Admit Date GERD without esophagitis acuteOct2024 3:00pmHTN (hypertension)acuteOct2024 3:00pm Mixed hyperlipidemiaacuteOct2024 3:00pmMorbid (severe) obesity due to excess caloriesacuteOct2024 3:00pmOSA (obstructive sleep apnea)acute May 06, 2025 3:00pmType 2 diabetes mellitus without complication, without long-term current usacuteOctober 2024 3:00pm [facility] Work Phone: Reason for referral (narrative)No reason for referral information availableSuburban Community [facility] & [facility] Work Phone: Summary Purpose Family History No Family History Records FoundNo Family History Records FoundNo Family History Records FoundNo Family History Records Found Advance Directives Advance Directive Response Recorded Date/ Time Advance Directives No April 30, 2025 1:43pm Chief Complaint and Reason for Visit Chief Complaint Admit Date follow up May 06, 2025 3 :00pm Reason for Visit Admit Date GERD without esophagitis May 06, 2 025 3:00pm HTN (hypertension) May 06, 2025 3 :00pm Mixed hyperlipidemia May 06, 2025 3:00pm Morbid (severe) obesity due to excess ca lories May 06, 2025 3:00pm JAYSON (obstructive sleep apnea) May 062024 3:00pm Type 2 diabetes mellitus wit hout complication, without long-term current us May 06, 2025 3:00pm Additional Source Comments INFORMATION SOURCE (unrecogn ized section and content) DATE CREATED AUTHOR 03/19/2022 [facility] DATE CREATED AUTHOR AUTHOR'S ORGANIZ ATION 11/18/2022 [facility] DATE CREATED AUTHOR AUTHOR'S ORGANIZ ATION 11/26/2023 [facility] DATE CREATED AUTHOR AUTHOR'S ORGANIZ ATION 02/19/2025 [facility] EPIC Care Teams (unrecognized sec tion and content) Team MemberRelationshipSpecialtyStart DateEnd Date Shaikh Gonzalez MD PCP - GeneralInternal Lbcjvrys56/1/23Team MemberRelationshipSpecialtyStart Date End Date Arley Arthur MD [address] [place] [address] PCP - GeneralFamily Medicine02/14/24 Lynnette Crowley NP [address] [place] [address] Nurse PractitionerFamily Medicine02/14/24Team MemberRelationshipSpecialtyStart DateEnd Date Vaishali Zapata NP [address] [place] [phone] PCP [facility]10/23/24 Lyn[facility]te Crowley [facility]/14/24Team MemberRelationshipSpecialtyStart DateEnd Date Vaishali Zapata NP [address] [place] [phone] [facility]10/23/24 Lynnette Crowley NP [facility]02/14/24Te MemberRelationshipSpecialtyStart DateEnd Date Vaishali Zapata NP [address] [place] [phone] [facility]10/23/24 Lynnette Crowley NP [facility]02/14/24Te MemberRelationshipSpecialtyStart DateEnd Date Vaishali Zapata NP [address] [place] [phone] [facility]10/23/24 Lynnette Crowley NP [facility]02/14/24Te MemberRelationshipSpecialtyStart DateEnd Date Vaishali Zapata NP [address] [place] [phone] PCP - General10/23/24 Lynnette Crowley NP [facility]02/14/24Team MemberRelationshipSpecialtyStart DateEnd Date Vaishali Zapata NP [address] [place] [phone] PCP General10/23/24 Lynnette Crowley NP [facility]02/14/24Team MemberRelationshipSpecialtyStart DateEnd Date Vaishali Zapata NP [address] [place] [phone] PCP [facility]10/23/24 Lynnette Crowley NP [facility]02/14/24 Team Status: Active Member Role/Relationship Status Dates PHYSICIAN NO FAMILY Primary Care Provider Active Team Status: Inactive Member Role/Relationship Status Dates PHYSICIAN NO FAMILY Primary Care Provider Active Start: May 06, 2025 End: May 06, 2025Vaishali Zapata NP-CAttending ProviderActiveStart: May 06, 2025 End: May 06, 2025 Reason for Visit (unrecogniz ed section and content) ReasonOnset DateCommentsMed [id number] DateCommentsMed Refill 11/06/2024ReasonOnset DateCommentsMed [id number]/[id number] Goals (unrecognized section and content) Goals may be documented in a n alternate section FOR RECORDS PERTAINING TO PATIENTS WHO ARE [...] BE BASED ON THE PRIMARY CLINICAL RECORDS. [facility] [employer] [facility]. provides no warranty or guarantee of the accuracy or completeness of information in this document.
--- OUTSIDE RECORDS SUMMARY | 2025-06-17 07:19 | XMS_ITS | Clinical Summary ---
Author Organization [facility] Address [address] [place] [address] Care Team Providers Care Naturopathic Oncology Provider Name Role Phone Lynnette Crowley NP Unavailable [phone] Vaishali Zapata NP Primary Care Provider [phone] Shaikh NUNU Gonzalez Unavailable [phone] Allergies Active AllergyReactionsCriticalityNoted DateCommentsAmoxicillin-Pot Clavulanate 07/12/2023Sulfamethoxazole-Egobodtwhdmk04/03/2024 Medications MedicationSigDispense QuantityRefillsLast FilledStart DateEnd DateStatus biotin 5 MG capsule Take 3 tablets by mouth in the morning.Active Blood Glucose Monitoring Suppl (True Metrix Air Glucose Meter) w/Device kit Indications:Type 2 diabetes mellitus without complication, without long-term current use of insulin ([facility])1 each Daily 1 kit 5010/30/2025ctive glucose blood (True Metrix Blood Glucose Test) test strip Indications:Type 2 diabetes mellitus without complication, without long-term current use of insulin (HCC)Daily 100 each 5Active atorvastatin (Lipitor) 20 MG tablet Indications:Hyperlipidemia, unspecified hyperlipidemia typeTake 1 tablet (20 mg) by mouth Daily 90 tablet 5Active carvedilol (Coreg) 25 MG tablet Indications:Primary hypertensionTake 1 tablet (25 mg) by mouth in the morning and 1 tablet (25 mg) in the evening. Take with meals. 180 tablet 5Active cetirizine (ZyrTEC) 10 MG tablet Indications:Environmental and seasonal allergiesTake 1 tablet (10 mg) by mouth Daily as needed for allergies or rhinitis 90 tablet 5Active glipiZIDE XL (Glucotrol XL) 5 MG 24 hr tablet Indications:Type 2 diabetes mellitus without complication, without long-term current use of insulin (HCC)Take 1 tablet (5 mg) by mouth Daily Do not crush, chew, or split. 90 tablet 5Active metFORMIN XR (Glucophage-XR) 500 MG 24 hr tablet Indications:Type 2 diabetes mellitus without complication, without long-term current use of insulin (HCC)Take 1 tablet (500 mg) by mouth in the morning. Take with meals. Do not crush, chew, or split. 90 tablet 5Active montelukast (Singulair) 10 MG tablet Indications:Non-seasonal allergic rhinitis, unspecified triggerTake 1 tablet (10 mg) by mouth at bedtime 90 tablet 5Active omeprazole (PriLOSEC) [address] capsule Indications:Gastroesophageal reflux disease without esophagitisTake 1 capsule (20 mg) by mouth in the morning. Take before meals. Do not crush or chew. 90 capsule 5Active Active Problems ProblemNoted DateDiagnosed DateOSA (obstructive sleep apnea)02/18/2025 Assessment & Plan (02/18/2025 9:15 AM EDT): Has not been on any PAP for several years Will order sleep study at [facility] Environmental and seasonal jgnvovnel78/30/2025Morbid (severe) obesity due to excess nycfqpiv94/23/2025 Assessment & Plan (02/18/2025 6:21 AM EDT): Discussed with patient their BMI (actual, verses recommended). We have also discussed lifestyle modifications: attempts to perform physical activity as chronic conditions allow, also to monitor dietary intake: increasing protein/fruits/veggies and lowering carb intake (unless contraindicated). Limit sodas, juices, and sugary drinks. Is being prescribed Zepbound for her diabetes Assessment & Plan (10/30/2024 7:18 AM EDT): Discussed with patient their BMI (actual, verses [...] weight loss. Body mass index (BMI) 40.0-44.9, adult10/30/2024Mixed bekygypzzdqezp69/23/2025 Assessment & Plan (10/30/2024 7:19 AM EDT): On statin therapy Check labs yearly and prn dose change Encounter for adult wellness visit10/30/2024 Assessment & Plan (10/30/2024 7:20 AM EDT): Reviewed Ht/Wt/BMI Recommend eye exam yearly Recommend dental exams twice a year Balance work/leisure activities Exercises is recommended most days of the week (appropriate as chronic conditions allow) Follow up yearly and prn Arthritis of knee, right12/11/2023Gastroesophageal reflux dkithzm8907/20/2023 Assessment & Plan (02/18/2025 6:19 AM EDT): Recommendations: freq small meals, nothing to eat or drink at least 2 hours prior to bed, limit caffeine, alcohol, as well as spicy foods Meds to limit or avoid if possible: NSAIDS Elevate HOB if possible Current meds: omeprazole Assessment & Plan (10/30/2024 7:18 AM EDT): Recommendations: freq small meals, nothing to eat or drink at least 2 hours prior to bed, limit caffeine, alcohol, as well as spicy foods Meds to limit or avoid if possible: NSAIDS Elevate HOB if possible Current meds: omeprazole Assessment & Plan (07/20/2023 1:35 PM EST): C/w omeprazole. Symptoms well controlled. Screening mammogram, encounter for07/20/2023 Assessment & Plan (07/20/2023 1:37 PM EST): Will order Mammogram for the patient. Screening for malignant neoplasm of colon07/20/2023 Assessment & Plan (07/20/2023 1:38 PM EST): Will order Cologuard for the patient. Essential edsldtpdsveg84/16/2023 Assessment & Plan (02/18/2025 6:19 AM EDT): Please check blood pressure daily and record DASH diet Limit caffeine Take medication as directed Contact office if chest pain, pressure, dizziness, shortness of breath, swelling legs Recommend slow position changes Current meds: b marcela Assessment & Plan (10/30/2024 7:17 AM EDT): Please check blood pressure daily and record DASH diet Limit caffeine Take medication as directed Contact office if chest pain, pressure, dizziness, shortness of breath, swelling legs Recommend slow position changes Current meds: b blcoker Assessment & Plan (07/20/2023 1:35 PM EST): BP elevated today. Tolerating Anti hypertensive w/o adverse effects. Denies lightheadedness, dizziness, syncope, presyncope. Patient encouraged to continue with home BP monitoring and call office if he experiences orthostatic symptoms or persistently elevated BP. On Coreg. Patient will call office if BP is persistently elevated and will let us know so that we can adjust her medications. Type 2 diabetes mellitus without complication, without long-term current use of zpptjrm5406/24/2023 Assessment & Plan (02/18/2025 9:15 AM EDT): Check blood sugars daily, notify if <70 [...] and simple sugars. Current meds: statin, b marcela, glipizide XL, zepbound A1c: 5.5% 02/18/25, 6.7% 10/30/24 I am adding the medication zepbound (tirzepatide) for treatment of the patient's Type 2 diabetes, it is not being prescribed for obesity management. Pt's insurance company will not pay for mounjaro for DM, but will for zepbound. Will increase dose to 7.5mg weekly Assessment & Plan (11/11/2024 8:02 PM EDT): Check blood sugars daily, notify if <70 [...] and simple sugars. Current meds: statin, b marcela, glipizide XL A1c: 6.7% I am adding the medication zepbound (tirzepatide) for treatment of the patient's Type 2 diabetes, it is not being prescribed for obesity management. Assessment & Plan (01/01/2024 12:24 PM EDT): A1C 6.3 12/31 Patient can't use Rybelsus anymore due to cost. Metformin gives her diarrhea. She was prescribed Trulicity but she changed her job and can't use it w/o insurance coverage. Will call in oral glipizide. Patient counseled and educated on adverse effects, drug interactions and to reach out to office/pharmacy if questions or concerns related to new medications. Assessment & Plan (12/11/2023 5:43 PM EDT): A1C 6.3 12/31 Patient can't use Rybelsus anymore due to cost. Metformin given her diarrhea. She is attempting to lose weight, has stopped drinking soda and increasing her physical activity. Will start patient on Trulicity. We will start at low dose first, and then uptitrate from 2nd month. Assessment & Plan (07/20/2023 1:36 PM EST): No episode of hypoglycemia No medication adverse effects reported by the patient. Patient educated on lifestyle modifications, dietary restrictions, signs and symptoms of hypoglycemia/hyperglycemia and importance of eating regular consistent meals. Stressed upon importance of checking blood glucose at home and bring blood glucose log to appointments. All questions, concerns answered and addressed. Encouraged to call office if persistent hypoglycemia/hyperglycemia on home glucose monitoring noted. On Metformin and Rybelsus. Check labs Resolved Problems ProblemNoted DateDiagnosed DateResolved DateClass 3 severe obesity due to excess calories with body mass index (BMI) of 40.0 to 44.9 in adult Wfchmodihqvk27 Assessment & Plan (12/11/2023 5:39 PM EDT): On Coreg 25 mg q12. Usually 120-130/80. Asymptomatic C/w same. Other rjrfszzzcrpkve59 Assessment & Plan (07/20/2023 1:36 PM EST): On Lipitor. Check Lipid panel. Annual physical exam Assessment & Plan (07/20/2023 1:39 PM EST): Patient here for annual wellness. No active complaints to offer. Doing well. Reviewed medical, surgical and social history. Reviewed medication list. Patient provided appropriate education on chronicmedical conditions, prescription medications. Patient's health related questions and concerns addressed and answered. Ordered Mammogram, Cologuard. Refused Influenza vaccine. Immunizations ImmunizationAdministration DatesNext DueInfluenza, injectable, quadrivalent 05/03/2021,05/07/2020Influenza, injectable, quadrivalent, preservative free 05/03/2021,05/07/2020Influenza, seasonal, mamrdmkfwd45/16/4330WEL7112/10/2001 Moderna SARS-CoV-2 Eyrzqzeexgo66/01/2021 Family History Medical HistoryRelationNameCommentsCancerFatherHypertensionFatherProstate cancer FatherDiabetesMotherHyperlipidemiaMotherHypertensionMotherCancerPaternal GrandmotherRelationNameStatusCommentsDaughterAliveFatherAliveMotherAlivePaternal GrandmotherSonAlive Social History Tobacco UseTypesPacks/DayYears UsedDateSmoking Tobacco: FormerCigarettesQuit: 2007Passive Smoke Exposure: Past Tobacco Cessation:Counseling Given: No Alcohol UseStandard Drinks/WeekCommentsNever0 (1 standard drink = 0.6 oz pure alcohol)caffeine: more than 4 cups per day ; [id number] Health LiteracyAnswerDate RecordedHow often do you need to have someone help you when you read instructions, pamphlets, or other written material from your doctor or pharmacy? Never10/23/2024Humiliation, Afraid, Rape, and Kick questionnaireAnswerDate RecordedWithin the last year, have you been afraid of your partner or ex-partner?No10/23/2024Within the last year, have you been humiliated or emotionally abused in other ways by your partner or ex-partner?No10/23/2024 Within the last year, have you been kicked, hit, slapped, or otherwise physically hurt by your partner or ex-partner?No10/23/2024Within the last year, have you been raped or forced to have any kind of sexual activity by your part ner or ex-partner?10/23/2024Social Connection and Isolation PanelAnswerDate RecordedIn a typical week, how many times do you talk on the phone with family, friends, or neighbors?More than three times a week10/23/2024How often do you get together with friends or relatives?Twice a week10/23/2024How often do you attend baptism or mandaen services?1 to 4 times per year10/23/2024Do you belong to any clubs or organizations such as baptism groups, unions, fraternal or athletic jennifer ups, or school groups?No10/23/2024How often do you attend meetings of the clubs or organizations you belong to?Never10/23/2024re you , , , , never , or living with a partner?Koncwxj4010/23/2024 AUDIT-CAnswerDate RecordedQ1: How often do you have a drink containing alcohol? Monthly or less10/23/2024Q2: How many drinks containing alcohol do you have on a typical day when you are drinking?1 or Q3: How often do you have six or more drinks on one occasion?Less than llctfzs8510/23/2024Overall Financial Resource Strain (CARDIA)AnswerDate RecordedHow hard is it for you to pay for the very basics like food, housing, medical care, and heating?Not hard at all 10/23/2024PHQ-2AnswerDate RecordedPatient Health Questionnaire-2 Score4 10/30/2024[facility] - Occupational Stress QuestionnaireAnswerDate RecordedDo you feel stress - tense, restless, nervous, or anxious, or unable to sleep at night because yourmind is troubled all the time - these days?Not at all10/23/2024Exercise Vital SignAnswerDate RecordedOn average, how many days per week do you engage in moderate to strenuous exercise (like a brisk walk)?2 days10/23/2024On average, how many minutes do you engage in exercise at this level?30 min10/23/2024Hunger Vital SignAnswerDate Recorded Within the past 12 months, you worried that your food would run out before you got the money to buymore.Never true10/23/2024Within the past 12 months, the food you bought just didn't last and you didn't have money to get more.Never true 10/23/2024PRAPARE - TransportationAnswerDate RecordedIn the past 12 months, has lack of transportation kept you from medical appointments or from getting medications?No10/23/2024In the past 12 months, has lack of transportation kept you from meetings, work, or from getting things needed for daily living?No 10/23/2024Housing Stability Vital SignAnswerDate RecordedIn the last 12 months, was there a time when you were not able to pay the mortgage or rent on time?No 10/23/2024In the past 12 months, how many times have you moved where you were living?t any time in the past 12 months, were you homeless or living in a correction (including now)?No10/23/2024CommentsUnknownSex and Gender InformationValueDate RecordedSex Assigned at BirthNot on fileLegal SexFemale 09/21/2022 6:40 PM EDTGender IdentityNot on fileSexual OrientationNot on file Last Filed Vital Signs Vital SignReadingTime TakenCommentsBlood Scjldncc608/8008 8:47 AM EDT Jtlbb4023 8:47 AM FVCGhejadnsmsr34.9 ??C (98.5 ??F)02/18/2025 8:47 AM EDTRespiratory Pexx6017 8:47 AM EDTOxygen Oikljmsfpx31%02/18/2025 8:47 AM EDTInhaled Oxygen Concentration--Wthebi242 kg (242 lb 3.2 oz)02/18/2025 8:47 AM UXHJzstgy494 cm (5' 3 )12/11/2023 5:22 PM EDTBody Mass Index42.906 5:22 PM EDT Plan of Treatment Health MaintenanceDue DateLast DoneCommentsCT Fmiyojlobnuj49/07/1969Colonoscopy 1968FIT1968FOBT1968 2197Dfjquwwuqorib80/07/1969Pneumococcal Vaccine: Pediatrics (0 to 5 Years) and At-Risk Patients (6 to 64 Years) (1 of 2 - PCV)1987Pap Smear1989Cervical Cancer Fboalmdhp72/07/1999HPV/Cotest 1998COVID-19 Vaccine (2024- season)/07/2020, 11/30/2020, 11/02/2020Influenza Vaccine (#1)/, 05/03/2021, 05/03/2021, Additional history existsDiabetes: Retinopathy Hrxlxjtpu51/07/2022, 02/24/2018Diabetes: Hemoglobin A1C/06/2025, 10/30/2024, 12/11/2023, Additional history existsDiabetes: Urine Protein Qvygdtqsr67/ Kkbjxsydb92/19/olorectal Cancer Mgczmmoam78/11/2027FIT-DNA Procedures Procedure NamePriorityDate/TimeAssociated DiagnosisCommentsPOCT GLYCOSYLATED HEMOGLOBIN (HGB A1C)Shogrrc6502/18/2025 9:02 AM EDT Type 2 diabetes mellitus without complication, without long-term current use of insulin (HCC) MICROALBUMIN / CREATININE URINE SEWJRPpnumym15/19/2025 8:55 AM EDT Essential hypertension Type 2 diabetes mellitus without complication, without long-term current use of insulin (HCC) Encounter for adult wellness visit BI MAMMOGRAM SCREENING TOMOSYNTHESIS YJFAOQZVVJyblsbf32/19/2025 8:25 AM EDT Screening mammogram, encounter for LAB COLOGUARD?? COLON CANCER CXVOESEiicduu63/11/2024 2:08 PM ESTCOLOR FUNDUS PHOTOGRAPHY - OU - BOTH FMXNQunmgkz35/18/2018 12:00 PM EDT from Last 3 Months or Most Recently Relevant to Health Maintenance Results * POCT glycosylated hemoglobin (Hb A1C) docked device (02/18/2025 9:02 AM EDT) ComponentValueRef RangeTest MethodAnalysis TimePerformed AtPathologist SignatureHemoglobin A1C5.5Specimen (Source)Anatomical Location / Laterality Collection Method / VolumeCollection TimeReceived TimeBloodVenous blood specimen / Oxkjchv5802/18/2025 9:02 AM EDT Narrative Authorizing ProviderResult TypeResult StatusLisa Lewistyler POINT OF CARE TEST ENTER/EDIT ORDERABLESFinal Result * Microalbumin / creatinine, urine ratio (12/26/2024 8:55 AM EDT)ComponentValue Ref RangeTest MethodAnalysis TimePerformed AtPathologist SignatureCREATININE, RANDOM UJJJN06186 - 275 mg/dLQUESTALBUMIN, URINE1.2See Note: mg/dLQUEST Comment: Reference Range: Reference Range Not established ALBUMIN/CREATININE RATIO, RANDOM URINE8<30 mg/g creatQUESTComment: The ADA defines abnormalities in albumin excretion as follows: Albuminuria Category ?Result (mg/g creatinine) Normal to Mildly increased <30 Moderately increased ? 30-299 Severely increased > OR = 300 The ADA recommends that at least two of three specimens collected within a 3-6 month period be abnormal before considering a patient to be within a diagnostic category. Specimen (Source)Anatomical Location / LateralityCollection Method / Volume Collection TimeReceived TimeUrineUrine specimen obtained by clean catch procedure / Mxlasrl7212/26/2024 8:55 AM EDT12/26/2024 2:41 PM EDT Narrative Resulting Agency Comment Performing Organization Information ?Site ID: QPT ?Name: [employer] [facility] ?Address: [address] [place] [address], [address] [place] [id number] ?Director: Shady Colin MD Authorizing ProviderResult TypeResult StatusLisa Benny NPLAB URINE ORDERABLES Final ResultPerforming OrganizationAddressCity/State/ZIP CodePhone Number QUEST * Bilateral screening mammogram with tomosynthesis (12/26/2024 8:25 AM EDT) Anatomical RegionLateralityModalityBreastBilateralMammographySpecimen (Source) Anatomical Location / LateralityCollection Method / VolumeCollection Time Received Time12/26/2024 11:32 AM EDT Impressions 12/26/2024 11:40 AM EDT Impression: No specific evidence of malignancy seen in either breast. BIRADS 2 - Benign Findings DENSITY: The breasts are almost entirely fatty. FOLLOW-UP: Routine Screening Mammogram ELECTRONICALLY SIGNED BY: Jeyson Butterfield M.D. Narrative 12/26/2024 11:40 AM EDT Examination: BI MAMMOGRAM SCREENING TOMOSYNTHESIS BILATERAL Clinical History: breast cancer screening Technique: Screening digital mammography study of both breasts was performed with 2-D and 3-D tomosynthesis imaging. No prior study available for comparison. Findings: There is no evidence of dominant spiculated mass, grouped microcalcifications, or skin thickening which would be suggestive of malignancy. ?? A few benign-appearing calcifications are seen on the right. Axillary lymph nodes are noted on the left and appear grossly unremarkable. Procedure Note Jeyson Butterfield MD - 12/26/2024 Examination: BI MAMMOGRAM SCREENING TOMOSYNTHESIS BILATERAL Clinical History: breast cancer screening Technique: Screening digital mammography study of both breasts wasperformed with 2-D and 3-D tomosynthesis imaging. No prior study availablefor comparison. Findings: There is no evidence of dominant spiculated mass, grouped microcalcifications, or skin thickening which would be suggestive ofmalignancy. A few benign-appearing calcifications are seen on the right. Axillarylymph nodes are noted on the left and appear grossly unremarkable. IMPRESSION: Impression: No specific evidence of malignancy seen in either breast. BIRADS 2 - Benign Findings DENSITY: The breasts are almost entirely fatty. FOLLOW-UP: Routine Screening Mammogram ELECTRONICALLY SIGNED BY: Jeyson Butterfield M.D. Authorizing ProviderResult TypeResult Marah Zapata NPIMEvelyn BI PROCEDURES Final Result * Cologuard?? colon cancer screening (07/20/2023 2:08 PM EST)Specimen (Source) Anatomical Location / LateralityCollection Method / VolumeCollection Time Received TimeStool Narrative Authorizing ProviderResult TypeResult Sasha LARIOS MOLECULAR DIAGNOSTICS ORDERABLESFinal Result * Color Fundus Photography - OU - Both Eyes (02/24/2018 12:00 PM EDT)Anatomical RegionLateralityModalityHeadFundus PhotographySpecimen (Source)Anatomical Location / LateralityCollection Method / VolumeCollection TimeReceived Time 02/24/2018 12:00 PM EDT Narrative 02/24/2018 12:00 PM EDT PERFORMED AT [facility] LOCATION:[id number] Procedure Note CONVERSION, GENERIC - 11/23/2022 PERFORMED AT [facility] LOCATION:[id number] Authorizing ProviderResult TypeResult Jj AG PHOTOGRAPHY Final Result from Last 3 Months or Most Recently Relevant to Health Maintenance Insurance Care Teams Team MemberRelationshipSpecialtyStart DateEnd Date Vaishali Zapata NP [address] [place] [phone] PCP - [facility]10/23/24 Shaikh Gonzalez MD [address] [phone] [facility] Lynnette Crowley NP Nurse PractitionerFaStephens County Hospital02/14/24
--- OUTSIDE RECORDS SUMMARY | 2025-06-17 07:19 | XMS_ITS | Clinical Summary ---
Author Organization [facility] Address [id number] [address] [place] [address] Care Team Providers Care Water Fitness Instructor Name Role Phone FedericoVaishali gonzales ZULLY-RISK INVESTIGATOR Primary Care Provider [phone] Allergies No known active allergies Medications MedicationSigDispense QuantityRefillsLast FilledStart DateEnd DateStatus metFORMIN (GLUCOPHAGE) 500 mg tablet Take 1 tablet by mouth daily with breakfast.Active montelukast (SINGULAIR) 10 mg tablet Take 10 mg by mouth nightly.Active cetirizine (ZyrTEC) 10 mg tablet Take 10 mg by mouth daily.Active carvedilol (COREG) 25 mg tablet Take 25 mg by mouth daily.Active esomeprazole (NexIUM) 20 mg capsule Take 20 mg by mouth every morning before breakfast.Active BIOTIN ORAL Take 3 tablets by mouth daily.Active budesonide-formoterol (SYMBICORT) 160-4.5 mcg/actuation inhaler Inhale 2 puffs 2 (two) times a day.Active fluticasone propionate (FLONASE) 50 mcg/actuation nasal spray Administer 1 spray into each nostril daily.Active RYBELSUS 14 mg tablet Take 1 tablet by mouth daily.2Active atorvastatin (LIPITOR) 20 mg tablet Take 1 tablet by mouth in the morning.02/08/2022ctive Active Problems No known active problems Family History Medical HistoryRelationNameCommentsCOPDMotherHypertensionMotherRelationName StatusCommentsMother Social History Tobacco UseTypesPacks/DayYears UsedDateSmoking Tobacco: FormerCigarettes0.515 1996 - 2011Smokeless Tobacco: NeverAlcohol UseStandard Drinks/WeekCommentsYes0 (1 standard drink = 0.6 oz pure alcohol)AUDIT-CAnswerDate RecordedFrequency of Alcohol ConsumptionMonthly or less06/05/2019Average Number of DrinksNot on file 06/05/2019Frequency of Binge DrinkingNot on file06/05/2019ChildcareAnswerDate IaohqaybYbpvkpjoxDvwhldd99/12/2019EmploymentAnswerDate RecordedEmploymentUnknown 12/19/2018Purpose - LifeAnswerDate RecordedPurpose and direction in lifeUnknown 1CommentsUnknownSex and Gender InformationValueDate RecordedSex Assigned at BirthNot on fileLegal DxtJhccdn84/06/2015 11:44 AM EDTGender IdentityNot on fileSexual OrientationNot on file Last Filed Vital Signs Vital SignReadingTime TakenCommentsBlood Iihdfrqj507/9008 11:05 AM EDT Aaksb839403/09/2022 11:05 AM MSLNhlgatekwaj87.1 ??C (96.9 ??F)12/08/2021 8:58 AM EDTRespiratory Ciiz060503/09/2022 11:00 AM EDTOxygen Acgafyiskq14%03/09/2022 11:00 AM EDTInhaled Oxygen Concentration--Lushqb313.2 kg (243 lb)03/09/2022 11:00 AM QSEFxsfsl069 cm (5' 3 )03/09/2022 11:00 AM EDTBody Mass Index43.05003/09/2022 11:00 AM EDT Plan of Treatment Health MaintenanceDue DateLast DoneCommentsDepression Ykhaeywll54/07/1981Tobacco Jvcnsbdjn30/07/1981Adult BMI Zvapdyrxk12/07/1987DTaP,Tdap and Td Vaccines (1 - Tdap)1987Pap Smear1989Zoster (Shingles) Vaccine (1 of 2)2018 COVID-19 Vaccine (4 - season)/07/2020, 11/30/2020, 11/02/2020Influenza Tyofzpp26/, 05/07/2020 Medical Devices Not on file Care Teams Team MemberRelationshipSpecialtyStart DateEnd Date Vaishali Caballero APRN-MELANIE PCP - GeneralFamily Bvsqyczw64/27/19
== END 2025-06-16 07:01 | disposition home or self-care (01) ==
LOC: SLEEP 06-17 07:15
PROVIDERS: PCP Family Medicine; Visit Provider Family Medicine
DX: G47.33 Obstructive sleep apnea (adult) (pediatric) (principal)
CPT/HCPCS: 95806